=== PATIENT | male | born 1960 | race Caucasian/White ===

== ENCOUNTER → 2017-07-30 | Outpatient (CLI) | payer BC ==
[~2017-07-30] MED LIST: CATHETER FLUSH 10 ML SYR IV PRN; IOHEXOL 350 MG/ML 100 ML (OMNIPAQUE 350) VIAL IV ONE; NS 100 ML (IVPB) BAG IV ONE
--- NOTE | 2017-07-30 13:28 | Diagnostic Imaging Report ---
INDICATION: COPD and hypoxia, family history of lung cancer. TECHNIQUE: The CT chest was obtained with IV contrast bolus. COMPARISON: There is no prior study for comparison. FINDINGS: There are no enlarged mediastinal or hilar nodes. There are no enlarged axillary nodes. There is no pleural or pericardial fluid. There is no overt bony abnormality. Lung parenchymal windows demonstrate no pulmonary infiltrate. There is a small 4 mm nodule in the right upper lobe which is noncalcified. This may represent a granuloma or a small neoplasm. Recommend a followup study in 6-12 months depending on the patient's risk level. There is some mild right apical scarring as well. IMPRESSION: No evidence of adenopathy or pleural fluid. A small 4 mm nodule in the right apex is present which may represent a granuloma or small neoplasm. Suggest a followup study in 6-12 months depending on the patient's risk level. Dictated by: Dictated on workstation # [id number]
== END ==
LOC: RAD 11:14
PROVIDERS: ATTEND Family Medicine
DX: R91.1 Solitary pulmonary nodule (principal); F17.210 Nicotine dependence, cigarettes, uncomplicated; R09.02 Hypoxemia; Z80.1 Family history of malignant neoplasm of trachea, bronchus and lung
CPT/HCPCS: 71260

== ENCOUNTER → 2017-08-27 | Outpatient (CLI) | payer BC ==
[~2017-08-27] MED LIST changes: -CATHETER FLUSH 10 ML SYR IV PRN; -IOHEXOL 350 MG/ML 100 ML (OMNIPAQUE 350) VIAL IV ONE; -NS 100 ML (IVPB) BAG IV ONE; +RT-ALBUTEROL SULF 2.5 MG/3 ML PRE-MIX VIAL IH ONE
== END ==
LOC: RT 12:39
PROVIDERS: ATTEND Nurse Practitioner Family
DX: R06.00 Dyspnea, unspecified (principal); F17.200 Nicotine dependence, unspecified, uncomplicated; J44.9 Chronic obstructive pulmonary disease, unspecified; R53.83 Other fatigue
CPT/HCPCS: 94060; 94640; 94726; 94729

== ENCOUNTER 2017-10-10 20:00 | Outpatient (CLI) | payer BC | END 2017-10-11 04:54 | disposition home or self-care (01) | LOC: SLEEP 20:00 | PROVIDERS: ATTEND Nurse Practitioner Family | DX: G47.61 Periodic limb movement disorder (principal); G47.36 Sleep related hypoventilation in conditions classified elsewhere; R06.83 Snoring | CPT/HCPCS: 95810 ==

== ENCOUNTER 2018-05-19 22:33 | Inpatient (IN) | payer BC ==
[~2018-05-19] VITALS: Ht 184.9 cm; Wt 74.4 kg
[2018-05-19] MEDS ORDERED: LACTATED RINGERS 1,000 ML IV ONE ×2 (22:36→23:04)
--- OUTSIDE RECORDS SUMMARY | 2018-05-19 22:37 | XMS REPORT | Continuity of Care Document ---
Author Author On License Of [facility] [place] Address Unknown Phone Unavailable Allergies Active Description Code Type Severity Reaction Onset Reported/Identified Relationship to Patient Clinical Status Yes No known drug allergies ND N/ A N/A Yes NO KNOWN DRUG ALLERGIES UNKNOWN NO KNOWN DRUG ALLERG Yes No Allergy Information Available [id number] Drug Allergy Unknown N/A 2016 Medications There is no data. Problems Date Dx Coded Attending Type Code Diagnosis Diagnosed By 10/26/2013 DANGELO BRUCE MD V70.5 EXAM - PRE-EMPLOYMENT 10/26/2013 DANGELO BRUCE MD V70.5 EXAM - PRE-EMPLOYMENT 02/23/2014 DANGELO BRUCE MD V70.0 EXAM - ROUTINE H&P 08/21/2017 CAROLYNN WILEY MD Ot F17.210 NICOTINE DEPENDENCE, CIGARETTES, UNCOMPL 08/21/2017 CAROLYNN WILEY MD Ot R09.02 HYPOXEMIA 08/21/2017 CAROLYNN WILEY MD Ot R91.1 SOLITARY PULMONARY NODULE 08/21/2017 CAROLYNN WILEY MD Ot Z80.1 FAMILY HISTORY OF MALIG NEOPLASM OF TRAC 09/10/2017 ADOLFO MARTIN APRN Ot F17.200 NICOTINE DEPENDENCE, UNSPECIFIED, UNCOMP 09/10/2017 ADOLFO MARTIN APRN Ot J44.9 CHRONIC OBSTRUCTIVE PULMONARY DISEASE, U 09/10/2017 ADOLFO MARTIN APRN Ot R06.00 DYSPNEA, UNSPECIFIED 09/10/2017 ADOLFO MARTIN APRN Ot R53.83 OTHER FATIGUE 10/08/2017 CAROLYNN WILEY 272.4 OTHER AND UNSPECIFIED HYPERLIPIDEMIA 10/08/2017 CAROLYNN WILEY E78.5 HYPERLIPIDEMIA, UNSPECIFIED 10/08/2017 CAROLYNN WILEY V70.0 ROUTINE GENERAL MEDICAL EXAMINATION AT A HEALTH CARE FACILITY 10/08/2017 CAROLYNN WILEY Z00.00 ENCOUNTER FOR GENERAL ADULT MEDICAL EXAMINATION WITHOUT ABNORMAL FINDINGS 10/08/2017 CAROLYNN WILEY 272.4 OTHER AND UNSPECIFIED HYPERLIPIDEMIA 10/08/2017 CAROLYNN WILEY 496 CHRONIC AIRWAY OBSTRUCTION, NOT ELSEWHERE CLASSIFIED 10/08/2017 CAROLYNN WILEY E78.5 HYPERLIPIDEMIA, UNSPECIFIED 10/08/2017 CAROLYNN WILEY J44.9 CHRONIC OBSTRUCTIVE PULMONARY DISEASE, UNSPECIFIED 10/08/2017 CAROLYNN WILEY V70.0 ROUTINE GENERAL MEDICAL EXAMINATION AT A HEALTH CARE FACILITY 10/08/2017 CAROLYNN WILEY Z00.00 ENCOUNTER FOR GENERAL ADULT MEDICAL EXAMINATION WITHOUT ABNORMAL FINDINGS 10/08/2017 CAROLYNN WILEY 272.4 OTHER AND UNSPECIFIED HYPERLIPIDEMIA 10/08/2017 CAROLYNN WILEY 496 CHRONIC AIRWAY OBSTRUCTION, NOT ELSEWHERE CLASSIFIED 10/08/2017 CAROLYNN WILEY E78.5 HYPERLIPIDEMIA, UNSPECIFIED 10/08/2017 CAROLYNN WILEY James J44.9 CHRONIC OBSTRUCTIVE PULMONARY DISEASE, UNSPECIFIED 10/08/2017 CAROLYNN WILEY V70.0 ROUTINE GENERAL MEDICAL EXAMINATION AT A HEALTH CARE FACILITY 10/08/2017 CAROLYNN WILEY Z00.00 ENCOUNTER FOR GENERAL ADULT MEDICAL EXAMINATION WITHOUT ABNORMAL FINDINGS 10/11/2017 ADOLFO MARTIN APRN Ot G47.36 SLEEP RELATED HYPOVENTILATION IN CONDITI 10/11/2017 ADOLFO MARTIN APRN Ot G47.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 10/11/2017 ADOLFO MARTIN APRN Ot R06.83 SNORING 11/04/2017 Grabiel Woodson W 491.20 OBSTRUCTIVE CHRONIC BRONCHITIS, WITHOUT EXACERBATION 11/04/2017 BrownGrabiel W J44.9 CHRONIC OBSTRUCTIVE PULMONARY DISEASE, UNSPECIFIED 11/27/2017 Brown, Grabiel A 491.20 OBSTRUCTIVE CHRONIC BRONCHITIS, WITHOUT EXACERBATION 11/27/2017 Grabiel Woodson A J44.9 CHRONIC OBSTRUCTIVE PULMONARY DISEASE, UNSPECIFIED 03/31/2018 INEZ ARAIZA, CAROLYNN Maria Ot F17.210 NICOTINE DEPENDENCE, CIGARETTES, UNCOMPL 03/31/2018 INEZ ARAIZA, CAROLYNN Maria Ot R09.02 HYPOXEMIA 03/31/2018 INEZ ARAIZA, CAROLYNN Maria Ot R91.1 SOLITARY PULMONARY NODULE 03/31/2018 INEZ ARAIZA, CAROLYNN Maria Ot Z80.1 FAMILY HISTORY OF MALIG NEOPLASM OF TRAC 03/31/2018 ADOLFO MARTIN APRN Ot F17.200 NICOTINE DEPENDENCE, UNSPECIFIED, UNCOMP 03/31/2018 ADOLFO MARTIN APRN Ot J44.9 CHRONIC OBSTRUCTIVE PULMONARY DISEASE, U 03/31/2018 ADOLFO MARTIN APRN Ot R06.00 DYSPNEA, UNSPECIFIED 03/31/2018 ADOLFO MARTIN APRN Ot R53.83 OTHER FATIGUE Procedures Code Description Performed By Performed On URINEDRUG URINE DRUG SCREEN (CON'F ) 10/26/2013 54097 PULMONARY FUNCTION TEST (IN- HOUSE) 03/08/2014 Results Test Result Range Comprehensive Metabolic Panel - 10/08/17 14:40 Albumin 4.5 g/dL 3.6-5.1 ALP 127 U/L 35-130 ALT 27 U/L 6-45 Anion Gap 14 6-14 AST 20 U/L 2-40 BUN 16 mg/dL 5-25 Calcium 9.8 mg/dL 8.3-10.4 Chloride 106 mmol/L 95-114 CO2 23 mEq/L 22-33 Creat 1.08 mg/dL 0.50-1.50 eGFR 70 mL/min/1.73m2 >59 Globulin 2.7 g/dL 2.3-3.5 Glucose 98 mg/dL 70-110 Osmo 288 280-295 Potassium 4.2 mmol/L 3.5-5.3 Sodium 139 mmol/L 134-148 TBil 0.6 mg/dL 0.2-1.2 TP 7.2 g/dL 6.0-8.3 Encounters ACCT No. Visit Date/Time Discharge Status Pt. Type Provider Facility Loc./Unit Complaint [id number] 02/23/2014 14:52:00 02/23/2014 23:59:59 CLS Outpatient DANGELO BRUCE MD [id number] 10/26/2013 11:17:00 10/26/2013 23:59:59 CLS Outpatient DANGELO BRUCE MD [id number] 03/17/2014 07:47:00 03/17/2014 23:59:59 CLS Outpatient JAYLEEN MANTILLA [facility] CREHAB [id number] 02/22/2014 14:43:00 02/22/2014 14:43:00 DIS Outpatient BRYANT AGUILERA [facility] RAD [id number] 02/22/2014 14:43:05 Document Registration [id number] 03/31/2018 11:27:00 03/31/2018 23:59:59 CLS Preadmit CAROLYNN WILEY MD [facility] RAD PULMONARY NODULE FOLLOW UP [id number] 10/10/2017 20:00:00 10/11/2017 04:54:00 DIS Outpatient ADOLFO MARTIN APRN [facility] SLEEP SLEEP DISORDER, UNSPECIFIED [id number] 08/27/2017 12:39:00 08/27/2017 23:59:59 CLS Outpatient ADOLFO MARTIN 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 [facility] RT SOB [id number] 08/19/2017 12:38:00 08/19/2017 23:59:59 CLS Preadmit ADOLFO MARTIN APRN [facility] RAD LUNG NODULE R91.1 [id number] 07/30/2017 11:14:00 07/30/2017 23:59:59 CLS Outpatient CAROLYNN WILEY MD [facility] RAD COPD [id number] 11/05/2017 10:00:00 11/27/2017 11:23:00 DIS Outpatient Grabiel Woodson [id number] 11/04/2017 10:00:00 11/04/2017 23:59:00 DIS Outpatient Grabiel Woodson [id number] 10/08/2017 17:23:00 10/08/2017 23:59:00 DIS Outpatient CAROLYNN WILEY [id number] 07/17/2017 12:08:00 07/17/2017 23:59:00 DIS Outpatient CAROLYNN WILEY
[2018-05-19 22:45] LABS: BASOPHILS # (AUTO) 0.1 10^3/uL (0.0-0.1); BASOPHILS % (AUTO) 1 % (0-10); EOSINOPHILS # (AUTO) 0.2 10^3/uL (0.0-0.3); EOSINOPHILS % (AUTO) 2 % (0-10); HEMATOCRIT 45 % (40-54); HEMOGLOBIN 15.8 G/DL (13.3-17.7); LYMPHOCYTES # (AUTO) 2.5 X 10^3 (1.0-4.0); LYMPHOCYTES % (AUTO) 30 % (12-44); MEAN CORPUSCULAR HEMOGLOBIN 31 PG (25-34); MEAN CORPUSCULAR HGB CONC 36 G/DL (32-36); MEAN CORPUSCULAR VOLUME 86 FL (80-99); MEAN PLATELET VOLUME 12.7 FL (7.4-10.4); MONOCYTES # (AUTO) 0.9 X 10^3 (0.0-1.0); MONOCYTES % (AUTO) 10 % (0-12); NEUTROPHILS # (AUTO) 4.8 X 10^3 (1.8-7.8); NEUTROPHILS % (AUTO) 57 % (42-75); PLATELET COUNT 141 10^3/uL (130-400); RED BLOOD COUNT 5.16 10^6/uL (4.35-5.85); RED CELL DISTRIBUTION WIDTH 13.2 % (10.0-14.5); WHITE BLOOD COUNT 8.4 10^3/uL (4.3-11.0)
[2018-05-19] MEDS ORDERED: ONDANSETRON 4 MG/2 ML (SDV) Z0FRAN IVP ONE (22:45)
--- NOTE | 2018-05-19 22:52 | ED General ---
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 --WAS VERY HOT IN THE BUILDING C/O GENERALIZED WEAKNESS C/O LEFT SIDED HEADACHE STATES "I THINK I HAD A HEAT STROKE-MY WHOLE LEFT SIDE IS NUMB" BUT CAN MOVE ALL EXTREMITIES. STATES IT CAME ON SUDDENLY + NAUSEA, NO VOMITING HAS BEEN DRINKING LIQUIDS, AND LAST VOID WAS 2 HOURS AGO, ATE HAM SANDWICH AT 1900 TONIGHT NO VISION CHANGES NO CHEST PAIN OR SHORTNESS OF BREATH ACCUCHECK BY EMS 129 PCP: DR. WILEY Allergies and Home Medications Allergies Coded Allergies: No Known Drug Allergies (Unverified , 05/19/18) Home Medications Omeprazole Magnesium 20 Mg Tablet.dr, 20 MG PO 1200, (Reported) Ranitidine HCl 150 Mg Tablet, 150 MG PO 1200, (Reported) Patient Home Medication List Home Medication List Reviewed: Yes Review of Systems Constitutional: see HPI, malaise, weakness EENTM: no symptoms reported Respiratory: no symptoms reported Cardiovascular: no symptoms reported Gastrointestinal: see HPI; No abdominal pain, No diarrhea, No loss of appetite ; nausea; No vomiting Genitourinary: no symptoms reported; No decreased output Musculoskeletal: no symptoms reported Skin: no symptoms reported Psychiatric/Neurological: See HPI, Headache, Numbness, Paresthesia, Weakness ( GENERALIZED) Hematologic/Lymphatic: No Symptoms Reported Immunological/Allergic: no symptoms reported Past Smawcbz-Brvhqa-Tjjptr Hx Patient Social History Alcohol Use: Past History (HISTORY OF ABUSE--WILL ONLY STATE HE DRANK "ALOT" AND QUIT "LONG TIME AGO" PER PT ON 05/19/18) Recreational Drug Use: Yes (COCAINE, METH, THC, DENIES IV DRUG USE, PER PT ON 05/19/18) Drug of Choice: COCAINE, METH, THC, DENIES IV USE Smoking Status: Current Everyday Smoker (1 PPD) Type Used: Cigarettes (1 PPD) 2nd Hand Smoke Exposure: Yes Recent Hopitalizations: No Immunizations Up To Date Tetanus Booster (TDap): Unknown Seasonal Allergies Seasonal Allergies: No Past Medical History Surgeries: No Respiratory: Yes COPD Cardiac: No Neurological: No Genitourinary: No Gastrointestinal: Yes Gastroesophageal Reflux Musculoskeletal: No Endocrine: No HEENT: No Cancer: No Psychosocial: No Integumentary: No Blood Disorders: No Physical Exam Vital Signs Vital Signs - First Documented 05/20/18 05/20/18 00:24 01:30 Temp 96.7 Pulse 70 Resp 17 B/P (MAP) 137/88 (115) Pulse Ox 93 O2 Delivery Room Air O2 Flow Rate 2.00 Capillary Refill : General Appearance: No Apparent Distress, WD/WN, Other (VERY LETHARGIC, NOT WANTING TO ANSWER QUESTIONS ON ARRIVAL, BUT AFTER ASKING PT MULTIPLE QUESTIONS, HE FINALLY STARTED TALKING IN A COMPLETELY NORMAL VOICE WITHOUT DIFFICULTY. DRAMATIC. 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 ) Progress/Results/Core Measures Suspected Sepsis SIRS Temperature: Pulse: Respiratory Rate: Blood Pressure / Mean: Results/Orders Lab Results My Orders Medications Given in ED Vital Signs/I&O Capillary Refill : Progress Note : Progress Note 2350--STILL C/O LEFT SIDED HEADACHE, BUT IS BETTER. NAUSEA IS GONE. PT STATES NUMBNESS AND TINGLING IS GONE. PT IS FREELY USING ALL EXTREMITIES EQUALLY WITHOUT DIFFICULTY. NO DETERIORATION IN PT'S CONDITION DURING ER STAY ECG Initial ECG Impression Date: May 19, 2018 Initial ECG Impression Time: 22:48 Initial ECG Rate: 63 Initial ECG Rhythm: Normal Sinus Diagnostic Imaging Comments CT HEAD--2 SMALL AREAS OF HYPODENSITY IN SUBCORTICAL WHITE MATTER OF LEFT FRONTAL LOBE, NON-SPECIFIC--POSSIBLY ACUTE, SUBACUTE OR CHRONIC SMALL LACUNAR INFARCTS.. NO ACUTE BLEEDING OR OTHER INTRACRANIAL PROCESS, DOES NOT RECOMMEND CT HEAD ANGIOGRAM AT THIS TIME, AREAS ARE VERY SMALL AND PERIPHERAL. PER RADIOLOGIST VIA PHONE AT [phone] Reviewed: Reviewed by Me, Discussed w/Radiologist Departure Communication (Admissions) 8402--SPOKE WITH DR. LERMA, ACCEPTS PT FOR ADMIT Impression Primary Impression: TRANSIENT LEFT SIDED PARESTHESIAS Additional Impression: Heat exhaustion Disposition: ADMITTED INPATIENT Condition: Improved Admissions Decision to Admit Reason: Admit from ER (General) Decision to Admit/Date: May 20, 2018 Time/Decision to Admit Time: 00:01 Departure-Patient Inst. Referrals: CAROLYNN WILEY MD (PCP/Family) Primary Care Physician ROCKY PINK DO May 19, 2018 22:52
[2018-05-19 23:02] LABS: INR 1.2 (0.8-1.4); PROTHROMBIN TIME PATIENT 15.2 SEC (12.2-14.7)
[2018-05-19 23:03] LABS: ALANINE AMINOTRANSFERASE 26 U/L (0-55); ALBUMIN 4.3 GM/DL (3.2-4.5); ALKALINE PHOSPHATASE 101 U/L (40-136); BILIRUBIN,TOTAL 0.5 MG/DL (0.1-1.0); BUN/CREATININE RATIO 12; CALCIUM 9.5 MG/DL (8.5-10.1); CARBON DIOXIDE 23 MMOL/L (21-32); CHLORIDE 110 MMOL/L (98-107); CREATININE SERUM 1.06 MG/DL (0.60-1.30); GFR ESTIMATED > 60; GLUCOSE 147 MG/DL (70-105); MAGNESIUM 2.4 MG/DL (1.8-2.4); POTASSIUM 3.6 MMOL/L (3.6-5.0); SODIUM 142 MMOL/L (135-145)
[2018-05-19 23:22] LABS: TSH (THYROID ANALYZER) 1.55 UIU/ML (0.35-4.94)
[2018-05-20] VITALS (22 sets, daily range): BP systolic 109–168; BP diastolic 58–93
[2018-05-20] MEDS ORDERED: ONDANSETRON 4 MG/2 ML (SDV) Z0FRAN IVP ONE
[2018-05-20] MEDS ORDERED: KETOROLAC 30 MG/ML VIAL IVP ONE
[2018-05-20 00:14] LABS: BILIRUBIN,URINE NEGATIVE (NEGATIVE); CLARITY,URINE CLEAR; COLOR,URINE YELLOW; GLUCOSE, URINE (UA) NEGATIVE (NEGATIVE); KETONES,URINE NEGATIVE (NEGATIVE); LEUKOCYTE ESTERASE ,URINE NEGATIVE (NEGATIVE); NITRITE,URINE NEGATIVE (NEGATIVE); PH,URINE 7 (5-9); PROTEIN,URINE NEGATIVE (NEGATIVE); UROBILINOGEN,URINE NORMAL (NORMAL)
[2018-05-20 00:20] LABS: BACTERIA,URINE NEGATIVE /HPF; SQUAMOUS EPITHELIAL CELL,UR 0-2 /HPF
[2018-05-20 00:27] LABS: AMPHETAMINE SCREEN, URINE NEGATIVE (NEGATIVE); BARBITURATE SCREEN URINE NEGATIVE (NEGATIVE); BENZODIAZEPINES SCREEN URINE NEGATIVE (NEGATIVE); CANNABINOID SCREEN, URINE NEGATIVE (NEGATIVE); COCAINE SCREEN URINE NEGATIVE (NEGATIVE); METHADONE STAT NEGATIVE (NEGATIVE); METHAMPHETAMINE SCREEN URINE S NEGATIVE (NEGATIVE); OPIATE SCREEN URINE NEGATIVE (NEGATIVE); OXYCODONE STAT NEGATIVE (NEGATIVE); PROPOXYPHENE STAT NEGATIVE (NEGATIVE); TRICYCLIC ANTIDEPRESSANTS SCRE NEGATIVE (NEGATIVE)
--- OUTSIDE RECORDS SUMMARY | 2018-05-20 00:32 | XMS REPORT | Continuity of Care Document ---
Author Author [facility] Address Unknown Phone Unavailable Allergies Active Description Code Type Severity Reaction Onset Reported/Identified Relationship to Patient Clinical Status Yes No known drug allergies ND N/ A N/A Yes NO KNOWN DRUG ALLERGIES UNKNOWN NO KNOWN DRUG ALLERG Yes No Allergy Information Available [id number] Drug Allergy Unknown N/A 2016 Medications There [...] URINEDRUG URINE DRUG SCREEN (CON'F ) 10/26/2013 75806 PULMONARY FUNCTION TEST (IN- HOUSE) 03/08/2014 Results [...] Status Pt. Type Provider Facility Loc./Unit Complaint [id number] 02/23/2014 14:52:00 02/23/2014 23:59:59 CLS Outpatient DANGELO BRUCE MD [id number] 10/26/2013 11:17:00 10/26/2013 23:59:59 CLS Outpatient DANGELO BRUCE MD [id number] 03/17/2014 07:47:00 03/17/2014 23:59:59 CLS Outpatient JAYLEEN MANTILLA [facility] CREHAB [id number] 02/22/2014 14:43:00 02/22/2014 14:43:00 DIS Outpatient BRYANT AGUILERA 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 [id number] 08/19/2017 12:38:00 08/19/2017 23:59:59 CLS Preadmit ADOLFO MARTIN APRN [facility] RAD LUNG NODULE R91.1 [id number] 07/30/2017 11:14:00 07/30/2017 23:59:59 CLS Outpatient CAROLYNN WILEY MD [facility] RAD COPD [id number] 11/05/2017 10:00:00 11/27/2017 11:23:00 DIS Outpatient Grabiel Woodson [id number] 11/04/2017 10:00:00 11/04/2017 23:59:00 DIS Outpatient Grabiel Woodson [id number] 10/08/2017 17:23:00 10/08/2017 23:59:00 DIS Outpatient CAROLYNN WILEY [id number] 07/17/2017 12:08:00 07/17/2017 23:59:00 DIS Outpatient CAROLYNN WILEY
[2018-05-20] MEDS ORDERED: D5 1/2 NS W/KCL 20 MEQ/L 1,000 ML IV ONE (01:08)
[2018-05-20 01:43] LABS: BASOPHILS % (AUTO) 0 % (0-10); EOSINOPHILS % (AUTO) 0 % (0-10); HEMATOCRIT 41 % (40-54); HEMOGLOBIN 14.8 G/DL (13.3-17.7); LYMPHOCYTES # (AUTO) 0.8 X 10^3 (1.0-4.0); LYMPHOCYTES % (AUTO) 7 % (12-44); MEAN CORPUSCULAR HEMOGLOBIN 31 PG (25-34); MEAN CORPUSCULAR HGB CONC 36 G/DL (32-36); MEAN CORPUSCULAR VOLUME 87 FL (80-99); MEAN PLATELET VOLUME 13.1 FL (7.4-10.4); MONOCYTES # (AUTO) 0.5 X 10^3 (0.0-1.0); MONOCYTES % (AUTO) 5 % (0-12); NEUTROPHILS # (AUTO) 9.9 X 10^3 (1.8-7.8); NEUTROPHILS % (AUTO) 88 % (42-75); PLATELET COUNT 104 10^3/uL (130-400); RED BLOOD COUNT 4.72 10^6/uL (4.35-5.85); RED CELL DISTRIBUTION WIDTH 12.8 % (10.0-14.5); WHITE BLOOD COUNT 11.3 10^3/uL (4.3-11.0)
[2018-05-20 02:04] LABS: ALANINE AMINOTRANSFERASE 24 U/L (0-55); ALKALINE PHOSPHATASE 89 U/L (40-136); BILIRUBIN,TOTAL 0.4 MG/DL (0.1-1.0); BUN/CREATININE RATIO 13; CARBON DIOXIDE 20 MMOL/L (21-32); CHLORIDE 110 MMOL/L (98-107); CREATININE SERUM 0.92 MG/DL (0.60-1.30); GFR ESTIMATED > 60; GLUCOSE 144 MG/DL (70-105); POTASSIUM 3.8 MMOL/L (3.6-5.0); SODIUM 141 MMOL/L (135-145); TOTAL PROTEIN 6.4 GM/DL (6.4-8.2)
[2018-05-20] MEDS ORDERED: NS 250 ML (IVPB) BAG IV ONE (03:00)
[2018-05-20] MEDS ORDERED: IOHEXOL 350 MG/ML 100 ML (OMNIPAQUE 350) VIAL IV ONE (03:00)
[2018-05-20] MEDS ORDERED: KETOROLAC 30 MG/ML VIAL IVP PRN (05:00)
[2018-05-20] MEDS: D5 1/2 NS W/KCL 20 MEQ/L 1,000 ML IV SCH ×4 (05:30→21:24)
--- NOTE | 2018-05-20 05:31 | Diagnostic Imaging Report ---
INDICATION: Weakness. Syncope. COMPARISON: None FINDINGS: Single frontal view of the chest demonstrates normal heart size and pulmonary vascularity. The lungs are well aerated and clear. No large pleural effusion or pneumothorax is seen. The visualized osseous structures show no acute abnormalities. IMPRESSION: 1. No acute cardiopulmonary process. Dictated by: Dictated on workstation # [id number]
--- NOTE | 2018-05-20 06:17 | Pulmonary Consultation ---
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 He was not uncounscious however he was very weak. Pt was also complaining of left sided WILSON. Pt states it was very hot in building. NIH was 18 and now NIH is 2. Pt still has generalized weakness. Head CTs are negative. UDS is negative. Allergies and Home Medications Allergies Coded Allergies: No Known Drug Allergies (Unverified , 05/19/18) Home Medications No Active Prescriptions or Reported Meds Past Usmrlnl-Rbarti-Jbqogy Hx Patient Social History Alcohol Use: Past History Recreational Drug Use: Yes (COCAINE, METH, THC, DENIES IV DRUG USE, PER PT ON 05/19/18) Drug of Choice: COCAINE, METH, THC, DENIES IV USE Smoking Status: Current Everyday Smoker Type Used: Cigarettes 2nd Hand Smoke Exposure: Yes Recent Foreign Travel: No Contact w/Someone Who Travel: No Recent Infectious Disease Expo: No Recent Hopitalizations: No Immunizations Up To Date Tetanus Booster (TDap): Unknown Seasonal Allergies Seasonal Allergies: No Past Medical History Surgeries: No Respiratory: Yes COPD Cardiac: No Neurological: No Genitourinary: No Gastrointestinal: Yes Gastroesophageal Reflux Musculoskeletal: No Endocrine: No HEENT: No Cancer: No Psychosocial: No Integumentary: No Blood Disorders: No Review of Systems Time Seen by Provider: 06:31 Exam Exam Vital Signs Date Time Temp Pulse Resp B/P (MAP) Pulse Ox O2 Delivery O2 Flow Rate FiO2 05/20/18 04:00 58 15 154/87 (109) 99 Room Air 05/20/18 04:00 99 Nasal Cannula 2.00 05/20/18 03:00 81 15 147/93 (111) 99 Room Air 05/20/18 02:00 80 15 168/93 (118) 98 Room Air 05/20/18 01:30 99 Nasal Cannula 2.00 05/20/18 00:55 96.8 66 24 163/93 (116) 96 Room Air 05/20/18 00:24 96.7 70 17 137/88 (115) 93 Room Air 05/19/18 23:55 96.1 05/19/18 22:35 96.1 66 16 161/92 (115) 95 Room Air I & O 05/20/18 07:00 Intake Total 2150 ml Output Total 400 ml Balance 1750 ml General Appearance: No Apparent Distress, WD/WN, Other (VERY LETHARGIC) HEENT: PERRL/EOMI Neck: Full Range of Motion, Normal Inspection, Non Tender, Supple Respiratory: Normal Breath Sounds, No Accessory Muscle Use, No Respiratory Distress Cardiovascular: Regular Rate, Rhythm, No Edema, No JVD, No Murmur, Normal Peripheral Pulses Capillary Refill: Less Than 3 Seconds Extremity: Normal Capillary Refill, Normal Inspection, Normal Range of Motion, Non Tender, No Calf Tenderness Neurologic/Psychiatric: Alert, Oriented x3, No Motor/Sensory Deficits, 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 ) Results Lab Laboratory Tests 05/19/18 22:35 05/20/18 01:30 Assessment/Plan Assessment/Plan -Acute weakness -Acute TIA - symptoms now resolved -swallow eval prior PO intake -start Plavix -Check echo, and bilateral carotid dopplers -CT and CTA of head reports are still pending Nausea -Check amylase, lipase Dehydration -IVF Hx of small lung nodule - last CT of chest in 2017 here at [facility] -CT of chest today r/o mass Decreased appetite and wt loss over the last month Hx of tobacco use, ETOH -education Nocturnal hypoxia -managed by PCP -hx of CVA 255 ALEX WEBSTER DO May 20, 2018 06:17
[2018-05-20] MEDS: ONDANSETRON 4 MG/2 ML (SDV) Z0FRAN IV PRN ×2 (06:29→21:24)
--- NOTE | 2018-05-20 06:40 | Diagnostic Imaging Report ---
INDICATION: Syncope. Headache. TECHNIQUE: Routine non contrast-enhanced axial images were obtained from the skull base to the vertex. COMPARISON: None. FINDINGS: The ventricles and cortical sulci are age-appropriate. There are 2 small areas of abnormal, low attenuation in the periventricular white matter of the left frontal lobe. This is suggestive of small vessel ischemic changes; age-indeterminate. There is no prior study available for comparison. There is no midline shift or mass-effect. No acute intra-axial hemorrhage is seen. There are no abnormal areas of increased or decreased density to suggest acute hemorrhage or edema. No extra-axial masses or collections are present. The bony calvarium is intact. The visualized paranasal sinuses are unremarkable. The mastoid air cells are clear. IMPRESSION: 1. No acute intracranial abnormality. No CT evidence of mass, acute infarct or intracranial hemorrhage. 2. Probable chronic small vessel ischemic changes within the deep white matter. Dictated by: Dictated on workstation # [id number]
[2018-05-20] MEDS ORDERED: CATHETER FLUSH 10 ML SYR IV PRN (06:45)
[2018-05-20 07:04] LABS: BASOPHILS % (AUTO) 0 % (0-10); EOSINOPHILS % (AUTO) 0 % (0-10); HEMATOCRIT 40 % (40-54); HEMOGLOBIN 14.6 G/DL (13.3-17.7); LYMPHOCYTES # (AUTO) 0.7 X 10^3 (1.0-4.0); LYMPHOCYTES % (AUTO) 11 % (12-44); MEAN CORPUSCULAR HEMOGLOBIN 32 PG (25-34); MEAN CORPUSCULAR HGB CONC 36 G/DL (32-36); MEAN CORPUSCULAR VOLUME 87 FL (80-99); MEAN PLATELET VOLUME 12.7 FL (7.4-10.4); MONOCYTES # (AUTO) 0.3 X 10^3 (0.0-1.0); MONOCYTES % (AUTO) 5 % (0-12); NEUTROPHILS # (AUTO) 4.8 X 10^3 (1.8-7.8); NEUTROPHILS % (AUTO) 84 % (42-75); PLATELET COUNT 98 10^3/uL (130-400); RED BLOOD COUNT 4.63 10^6/uL (4.35-5.85); RED CELL DISTRIBUTION WIDTH 12.8 % (10.0-14.5); WHITE BLOOD COUNT 5.8 10^3/uL (4.3-11.0)
[2018-05-20 07:08] LABS: AMYLASE 52 U/L (25-125); LIPASE 31 U/L (8-78)
[2018-05-20 07:21] LABS: BUN/CREATININE RATIO 12; CALCIUM 8.8 MG/DL (8.5-10.1); CARBON DIOXIDE 21 MMOL/L (21-32); CHLORIDE 108 MMOL/L (98-107); CREATININE SERUM 0.84 MG/DL (0.60-1.30); GFR ESTIMATED > 60; GLUCOSE 142 MG/DL (70-105); MAGNESIUM 1.9 MG/DL (1.8-2.4); PHOSPHORUS 3.2 MG/DL (2.3-4.7); POTASSIUM 3.7 MMOL/L (3.6-5.0); SODIUM 139 MMOL/L (135-145)
--- NOTE | 2018-05-20 07:59 | Diagnostic Imaging Report ---
Indication: Heat exposure. Altered mental status. Confusion. Syncope. Findings: There is good opacification of the intracranial arteries. No evidence of spasm or obstructive disease. The anterior, middle and posterior cerebral arteries appear normal as do the cerebellar arteries. There are no enhancing masses. Ventricles and cortical gyral pattern are normal. Basal cisterns are clear. IMPRESSION: Negative CT angiography of the head. Dictated by: Dictated on workstation # [id number]
[2018-05-20] MEDS ORDERED: CALCIUM CARBONATE 500 MG (TUMS) TAB.CHEW PO NR (09:30)
[2018-05-20] MEDS ORDERED: FAMOTIDINE 20 MG (PEPCID) TABLET PO NR (09:30)
[2018-05-20] MEDS ORDERED: FAMOTIDINE 20 MG (PEPCID) TABLET PO PRN (09:30)
[2018-05-20] MEDS ORDERED: RANI-515 PO (09:31)
[2018-05-20] MEDS ORDERED: OMEP20TA33 PO (09:31)
[2018-05-20] MEDS: CLOPIDOGREL 75 MG (PLAVIX) TABLET PO SCH (10:51)
[2018-05-20] MEDS ORDERED: RT-ALBUTEROL/IPRATROPIUM 3 ML (DUONEB) VIAL INH PRN (11:15)
--- NOTE | 2018-05-20 11:43 | History & Physical-Hospitalist ---
History of Present Illness HPI/Chief Complaint CC: Severe dizziness with left sided weakness HPI: This is a 57-year-old white male of Dr. Still from [facility] who presented to the ER following heat exposure with complaints of left-sided weakness with numbness of his left face. CT brain and angiogram of the neck were both negative but showed possible old infarcts. Considering the continued issues he is currently having will obtain MRI of the brain with IV contrast to fully evaluate for possible stroke. I have ordered a lipid panel per stroke protocol and initiated physical therapy and occupational therapy. He denies any current pain and overall has no other significant issues except for the disequilibrium and the severe weakness that he has that he is just never had before. He does smoke and I counseled him for smoking cessation. I did initiate nebulizers per protocol considering the rales and rhonchi on lung exam today. Source: patient Date Seen 05/20/18 Time Seen by Provider: 10:30 Attending Physician Elliot Valladares MD PCP Estefani Still MD Referring Physician Date of Admission May 20, 2018 at 00:01 Home Medications & Allergies Home Medications Reviewed patient Home Medication Reconciliation performed by pharmacy medication reconciliations television production technician and/or nursing. Patients Allergies have been reviewed. 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) Alcohol Use: Past History Recreational Drug Use: Yes (COCAINE, METH, THC, DENIES IV DRUG USE, PER PT ON 05/19/18) Drug of Choice: COCAINE, METH, THC, DENIES IV USE Smoking Status: Current Everyday Smoker Type Used: Cigarettes 2nd Hand Smoke Exposure: Yes Physical Abuse Screen: No Sexual Abuse: No Recent Foreign Travel: No Contact w/other who traveled: No Recent Hopitalizations: No Recent Infectious Disease Expo: No Immunizations Up To Date Tetanus Booster (TDap): Unknown Seasonal Allergies Seasonal Allergies: No Past Medical History Respiratory: COPD Gastrointestinal: Gastroesophageal Reflux History of Blood Disorders: No Family History Hypertension Review of Systems Constitutional: see HPI, dizziness, weakness EENTM: no symptoms reported Respiratory: no symptoms reported Cardiovascular: no symptoms reported Gastrointestinal: no symptoms reported Genitourinary: no symptoms reported Musculoskeletal: muscle pain, muscle stiffness, muscle cramps Skin: no symptoms reported Psychiatric/Neurological: No Symptoms Reported Physical Exam Physical Exam Vital Signs Vital Signs - First Documented 05/19/18 05/20/18 22:35 01:30 Temp 96.1 Pulse 66 Resp 16 B/P (MAP) 161/92 (115) Pulse Ox 95 O2 Delivery Room Air O2 Flow Rate 2.00 Capillary Refill : Less Than 3 Seconds General Appearance: No Apparent Distress, WD/WN, Chronically ill Eyes: Bilateral Eye Normal Inspection, Bilateral Eye PERRL HEENT: PERRL/EOMI, Normal ENT Inspection, Pharynx Normal Neck: Full Range of Motion, Normal Inspection, Non Tender, Supple, Carotid Bruit Respiratory: Chest Non Tender, No Accessory Muscle Use, No Respiratory Distress , Crackles, Decreased Breath Sounds, Wheezing Cardiovascular: Regular Rate, Rhythm, No Edema, No Gallop, No JVD, No Murmur, Normal Peripheral Pulses Gastrointestinal: Normal Bowel Sounds, No Organomegaly, No Pulsatile Mass, Non Tender, Soft Back: Normal Inspection, No CVA Tenderness, No Vertebral Tenderness Extremity: Normal Capillary Refill, Normal Inspection, Normal Range of Motion, Non Tender, No Calf Tenderness, No Pedal Edema Neurologic/Psychiatric: Alert, Oriented x3, No Motor/Sensory Deficits, Normal Mood/Affect Skin: Normal Color, Warm/Dry Lymphatic: No Adenopathy Results Results/Procedures Labs Laboratory Tests 05/19/18 22:35 05/20/18 01:30 05/20/18 06:44 Patient resulted labs reviewed. Assessment/Plan Admission Diagnosis Assessment: Left-sided weakness with heat exhaustion Plan: Obtain MRI brain PT and OT Nebulizer treatments Reconcile all home meds Monitor closely Admission Status: Observation Diagnosis/Problems Diagnosis/Problems (1) Heat exhaustion Status: Acute Qualifiers: Encounter type: initial encounter Qualified Codes: T67.5XXA - Heat exhaustion, unspecified, initial encounter (2) Paresthesia and pain of left extremity Status: Acute (3) Smoker Status: Chronic (4) Rales Status: Acute (5) COPD (chronic obstructive pulmonary disease) Status: Chronic Qualifiers: COPD type: unspecified COPD Qualified Codes: J44.9 - Chronic obstructive pulmonary disease, unspecified Clinical Quality Measures DVT/VTE Risk/Contraindication: Risk Factor Score Per Nursin RFS Level Per Nursing on Admit: 3=High ULLOA,EVERETTE DO May 20, 2018 11:43
[2018-05-20 12:08] LABS: CHOLESTEROL 153 MG/DL (< 200); HDL CHOLESTEROL 29 MG/DL (40-60); TRIGLYCERIDES 79 MG/DL (<150); VLDL CHOLESTEROL 16 MG/DL (5-40)
--- NOTE | 2018-05-20 13:30 | Diagnostic Imaging Report ---
PROCEDURE: CT chest without contrast. TECHNIQUE: Multiple contiguous axial images were obtained through the chest without the use of intravenous contrast. INDICATION: Lung nodule versus mass, followup. COMPARISON: Comparison is made with prior CT chest from 07/30/2017. FINDINGS: No axillary lymphadenopathy is detected. No definite mediastinal or hilar lymphadenopathy is detected. No pericardial or pleural fluid is identified. Biapical pleural-parenchymal scarring is seen. Small nodule in the right lung apex is 4-5 mm in size, similar to examination from 07/30/2017. No new parenchymal nodule is identified. Upper abdomen demonstrates small stones within the gallbladder. IMPRESSION: 1. Stable right upper lobe nodule when compared with exam from 07/30/2017. Additional followup in one year is recommended to confirm stability. Dictated by: Dictated on workstation # [id number]
[2018-05-20] MEDS ORDERED: GADOBUTROL 7.5 MMOL/7.5 ML (GADAVIST) VIAL IV ONE (13:45)
--- NOTE | 2018-05-20 15:03 | Diagnostic Imaging Report ---
PROCEDURE: MR imaging of the brain with and without contrast. TECHNIQUE: Multiplanar, multisequence MR imaging of the brain was performed with and without contrast. INDICATION: Found unresponsive one day ago, complaining of left-sided weakness and slurred speech. Correlation is made with CT study of the brain earlier same day. Diffusion weighted sequence does show diffusion restriction involving portion of the left cerebellar hemisphere. This appears to be along the inferior and slightly medial aspect of the cerebellar hemisphere and portion of the vermis. This is consistent with an acute nonhemorrhagic infarct. Right cerebellar hemisphere is unremarkable. No supratentorial diffusion restriction is seen. No definite flow void in the left distal vertebral artery is seen and distal vertebral may be occluded. There is moderate periventricular and subcortical white matter signal abnormalities noted consistent with chronic microvascular ischemia. No acute intracranial hemorrhage is seen. No abnormal enhancement is seen following contrast demonstration. Corpus callosum is unremarkable. The sella and parasellar structures are unremarkable. IMPRESSION: 1. Acute nonhemorrhagic infarct left cerebellar hemisphere. The flow-void in the distal left vertebral artery is not well seen and left vertebral could be occluded. 2. Changes of chronic microvascular ischemia. Dictated by: Dictated on workstation # [id number]
--- NOTE | 2018-05-20 15:39 | Physical Therapy Evaluation ---
PT Evaluation-General Medical Diagnosis Admission Date May 20, 2018 at 00:01 Medical Diagnosis: weakness Onset Date: May 20, 2018 Therapy Diagnosis Therapy Diagnosis: impaired mobility, strength, balance, endurance, coordination Height/Weight Height (Feet): 5 Height (Inches): 12.80 Weight (Pounds): 170 Weight (Ounces): 8.0 Precautions Precautions/Isolations: Aspiration, Fall Prevention, Standard Precautions Referral Physician: Haley Rae DO Reason for Referral: Evaluation/Treatment Medical History Pertinent Medical History: COPD, GERD, Smoking Additional Medical History drug use Reviewed History: Yes Social History Home: Single Level Current Living Status: Spouse Entry Into Home: Stairs Without Railing PT Steps Into Home: 3 Prior/Core FIM Prior Level of Function Functional [place] Measure 0=Not Assessed/NA 4=Minimal Assistance 1=Total Assistance 5=Supervision or Setup 2=Maximal Assistance 6=Modified [place] 3=Moderate Assistance 7=Complete [place] Bed Mobility: 7 Transfers (B,C,W/C) (FIM): 7 Gait: 7 PT Evaluation-Current Subjective Patient in bed pre tx, agrees to PT, no pain but some minor back pain 12/10. Patient states he has occasional headaches. Patient states he gets dizzy/light headed with movement. Pt/Family Goals to be independent at home. Objective Patient Orientation: Person, Place, Situation Attachments: Oxygen, IV ROM/Strength ROM Lower Extremities WNL Strength Lower Extremities 4+/5 gross bilateral lower extremities Neuromuscular (Tone, Coordination, Reflexes) Patient has impaired coordination of all 4 extremities but especially lower extremities as observed during ambulation. Patient also seems to have decreased peripheral vision on the left side and slow tracking overall. No complaints of changes in hearing. Sensory Vision: Hearing: Functional Sensation Right Lower Extremit: Impaired Sensation Left Lower Extremity: Impaired Sensation Lower Extremities Patient has intact light touch sensation in both lower extremities but states that he does have impaired sensation. He also states that he has numbness on the left side of his face. Transfers Functional [place] Measure 0=Not Assessed/NA 4=Minimal Assistance 1=Total Assistance 5=Supervision or Setup 2=Maximal Assistance 6=Modified [place] 3=Moderate Assistance 7=Complete [place] Transfers (B, C, W/C) (FIM): 4 Scootin Rollin Supine to/from Sit: 5 Sit to/from Stand: 4 Patient performs bed mobility and supine to sit with SBA. He is unsteady after sitting and requires a few minutes for light headedness to go away. Min assist to stand due to balance impairments. Gait Mode of Locomotion: Walk Anticipated Mode of Locomotion: Walk Gait (FIM): 1 Distance: 8' Gait Level of Assist: 4 Gait Persons Needed: 1 Gait Assistive Device: FWW Comments/Gait Description Patient ambulated a few feet forward and back and then to the head of the bed. Patient used a rolling walker and needed min assist due to balance and uncoordination. He feels dizzy/light headed when standing. After sitting back on the bed patient states that he is exhausted and needs to lay back down. Balance Sitting Static: Fair Sitting Dynamic: Fair Standing Static: Poor Standing Dynamic: Poor Treatment Patient sat at the edge of the bed for about 5-6 minutes before standing. Assessment/Needs Patient has impaired mobility, strength, endurance, coordination, balance. He fatigues very quickly, is very dizzy/light headed with movement, and is a high fall risk. Rehab Potential: Fair PT Short Term Goals Short Term Goals Time Frame: May 27, 2018 Transfers (B,C,W/C) (FIM): 4 (CGA) Gait (FIM): 2 Gait Distance Comment: 50' Gait Level of Assist: 4 Gait Assistive Device: FWW PT Plan Problem List Problem List: Activity Tolerance, Functional Strength, Safety, Balance, Gait, Transfer, Bed Mobility Treatment/Plan Treatment Plan: Continue Plan of Care Treatment Plan: Bed Mobility, Education, Functional Activity Obdulia, Functional Strength, Gait, Safety, Therapeutic Exercise, Transfers Treatment Duration: May 27, 2018 Frequency: 6 times per week Estimated Hrs Per Day: .25 hour per day (15-30') Patient and/or Family Agrees t: Yes Safety Risks/Education Patient Education: Gait Training, Transfer Techniques, Correct Positioning, Disease Process, Safety Issues Teaching Recipient: Patient Teaching Methods: Demonstration, Discussion Response to Teaching: Reinforcement Needed Discharge Recommendations Plan Patient will perform bed mobility and transfer training, balance and endurance training, functional strengthening, stair training, gait training, and education , to improve functional mobility and independence at home. Therapy D/C Recommendations: Acute Rehab, Home w/ Family Support, [facility] (TCU/NH) Time/GCodes Time In: 1505 Time Out: 1520 Total Billed Treatment Time: 15 Total Billed Treatment 1 visit EVM 15' KRTEK,GABY PT May 20, 2018 15:38
[2018-05-20] MEDS: RT-ALBUTEROL/IPRATROPIUM 3 ML (DUONEB) VIAL INH SCH ×2 (16:22→19:26)
[2018-05-20] MEDS ORDERED: ACETAMINOPHEN 500 MG TAB (TYLENOL) PO PRN (16:30)
[2018-05-20] MEDS ORDERED: HYDROcodone/APAP 5 MG/325 MG (LORTAB) TAB PO PRN (16:30)
--- NOTE | 2018-05-20 17:28 | Consultation-Cardiology ---
HPI-Cardiology Cardiology Consultation Date of Consultation 05/20/18 Date of Admission Time Seen by Provider: 17:22 Indication: Acute CVA HPI 57 years old gentleman with history of hypertension and tobaccoism, COPD. Was in his usual state of health until about 4 days ago when he started having chest discomfort, on and off. Yesterday evening he started having dizziness and lightheadedness in addition to vertigo and started having weakness and numbness on the left side of his body which progressed. Patient was admitted today for workup for stroke, he has significant weakness on the left side and he still having headache and dizziness. Denied any previous cardiac history. He had a stress test in the remote past and he was told it was normal. No palpitation. No syncope or near syncopal episodes. 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) Alcohol Use: Past History Recreational Drug Use: Yes (COCAINE, METH, THC, DENIES IV DRUG USE, PER PT ON 05/19/18) Drug of Choice: COCAINE, METH, THC, DENIES IV USE Smoking Status: Current Everyday Smoker Type Used: Cigarettes 2nd Hand Smoke Exposure: Yes Recent Foreign Travel: No Recent Infectious Disease Expo: No Recent Hopitalizations: No Physical Abuse Screen: No Sexual Abuse: No Immunizations Up To Date Tetanus Booster (TDap): Unknown Past Medical History Gastroesophageal reflux disease Family Medical History Significant Family History: Hypertension Family Medical Hx Family history of cancer including lung and stomach cancer No family history of premature coronary artery disease or stroke Constitutional: see HPI, dizziness, weakness EENTM: see HPI, no symptoms reported Respiratory: see HPI; No cough; dyspnea on exertion; No hemoptysis, No orthopnea, No phlegm, No short of breath, No stridor, No wheezing, No other Cardiovascular: see HPI, chest pain; No edema, No Hx of Intervention, No palpitations, No syncope, No vascular heart diseas, No other Gastrointestinal: no symptoms reported, see HPI Genitourinary: no symptoms reported, see HPI Musculoskeletal: no symptoms reported, see HPI Skin: no symptoms reported, see HPI Psychiatric/Neurological: See HPI, Headache, Numbness, Weakness (On the left side) Reviewed Test Results Reviewed Test Results Lab Laboratory Tests Test 05/19/18 22:35 05/20/18 00:05 05/20/18 01:30 05/20/18 06:44 Range/Units White Blood Count 8.4 11.3 H 5.8 4.3-11.0 10^3/uL Red Blood Count 5.16 4.72 4.63 4.35-5.85 10^6/uL Hemoglobin 15.8 14.8 14.6 13.3-17.7 G/DL Hematocrit 45 41 40 40-54 % Mean Corpuscular Volume 86 87 87 80-99 FL Mean Corpuscular Hemoglobin 31 31 32 25-34 PG Mean Corpuscular Hemoglobin Concent 36 36 36 32-36 G/DL Red Cell Distribution Width 13.2 12.8 12.8 10.0-14.5 % Platelet Count 141 104 L 98 L 130-400 10^3/uL Mean Platelet Volume 12.7 H 13.1 H 12.7 H 7.4-10.4 FL Neutrophils (%) (Auto) 57 88 H 84 H 42-75 % Lymphocytes (%) (Auto) 30 7 L 11 L 12-44 % Monocytes (%) (Auto) 10 5 5 0-12 % Eosinophils (%) (Auto) 2 0 0 0-10 % Basophils (%) (Auto) 1 0 0 0-10 % Neutrophils # (Auto) 4.8 9.9 H 4.8 1.8-7.8 X 10^3 Lymphocytes # (Auto) 2.5 0.8 L 0.7 L 1.0-4.0 X 10^3 Monocytes # (Auto) 0.9 0.5 0.3 0.0-1.0 X 10^3 Eosinophils # (Auto) 0.2 0.0 0.0 0.0-0.3 10^3/uL Basophils # (Auto) 0.1 0.0 0.0 0.0-0.1 10^3/uL Prothrombin Time 15.2 H 12.2-14.7 SEC INR Comment 1.2 0.8-1.4 Activated Partial Thromboplast Time 31 24-35 SEC Sodium Level 142 141 139 135-145 MMOL/L Potassium Level 3.6 3.8 3.7 3.6-5.0 MMOL/L Chloride Level 110 H 110 H 108 H 98-107 MMOL/L Carbon Dioxide Level 23 20 L 21 21-32 MMOL/L Anion Gap 9 11 10 5-14 MMOL/L Blood Urea Nitrogen 13 12 10 7-18 MG/DL Creatinine 1.06 0.92 0.84 0.60-1.30 MG/DL Estimat Glomerular Filtration Rate > 60 > 60 > 60 BUN/Creatinine Ratio 12 13 12 Glucose Level 147 H 144 H 142 H 70-105 MG/DL Calcium Level 9.5 9.0 8.8 8.5-10.1 MG/DL Magnesium Level 2.4 1.9 1.8-2.4 MG/DL Total Bilirubin 0.5 0.4 0.1-1.0 MG/DL Aspartate Amino Transf (AST/SGOT) 20 18 5-34 U/L Alanine Aminotransferase (ALT/SGPT) 26 24 0-55 U/L Alkaline Phosphatase 101 89 40-136 U/L Troponin I < 0.30 <0.30 NG/ML Total Protein 7.0 6.4 6.4-8.2 GM/DL Albumin 4.3 4.0 3.2-4.5 GM/DL TSH [place] Testing 1.55 0.35-4.94 UIU/ML Serum Alcohol < 10 <10 MG/DL Urine Color YELLOW Urine Clarity CLEAR Urine pH 7 5-9 Urine Specific [place] 1.010 L 1.016-1.022 Urine Protein NEGATIVE NEGATIVE Urine Glucose (UA) NEGATIVE NEGATIVE Urine Ketones NEGATIVE NEGATIVE Urine Nitrite NEGATIVE NEGATIVE Urine Bilirubin NEGATIVE NEGATIVE Urine Urobilinogen NORMAL NORMAL MG/DL Urine Leukocyte Esterase NEGATIVE NEGATIVE Urine RBC (Auto) NEGATIVE NEGATIVE Urine RBC NONE /HPF Urine WBC NONE /HPF Urine Squamous Epithelial Cells 0-2 /HPF Urine Crystals NONE /LPF Urine Bacteria NEGATIVE /HPF Urine Casts NONE /LPF Urine Mucus MODERATE H /LPF Urine Culture Indicated NO Urine Opiates Screen NEGATIVE NEGATIVE Urine Oxycodone Screen NEGATIVE NEGATIVE Urine Methadone Screen NEGATIVE NEGATIVE Urine Propoxyphene Screen NEGATIVE NEGATIVE Urine Barbiturates Screen NEGATIVE NEGATIVE Ur Tricyclic Antidepressants Screen NEGATIVE NEGATIVE Urine Phencyclidine Screen NEGATIVE NEGATIVE Urine Amphetamines Screen NEGATIVE NEGATIVE Urine Methamphetamines Screen NEGATIVE NEGATIVE Urine Benzodiazepines Screen NEGATIVE NEGATIVE Urine Cocaine Screen NEGATIVE NEGATIVE Urine Cannabinoids Screen NEGATIVE NEGATIVE Lactic Acid Level 1.62 0.50-2.00 MMOL/L Phosphorus Level 3.2 2.3-4.7 MG/DL Triglycerides Level 79 <150 MG/DL Cholesterol Level 153 < 200 MG/DL LDL Cholesterol Direct 113 1-129 MG/DL VLDL Cholesterol 16 5-40 MG/DL HDL Cholesterol 29 L 40-60 MG/DL Amylase Level 52 25-125 U/L Lipase 31 8-78 U/L Physical Exam Vital Signs Vital Signs - First Documented 05/19/18 05/20/18 22:35 01:30 Temp 96.1 Pulse 66 Resp 16 B/P (MAP) 161/92 (115) Pulse Ox 95 O2 Delivery Room Air O2 Flow Rate 2.00 Capillary Refill : Less Than 3 Seconds General Appearance: WD/WN, Moderate Distress Eyes: Bilateral Eye Normal Inspection, Bilateral Eye PERRL, Bilateral Eye EOMI HEENT: PERRL/EOMI, TMs Normal, Normal ENT Inspection, Pharynx Normal Neck: Full Range of Motion, Normal Inspection, Non Tender, Supple, Carotid Bruit Respiratory: Chest Non Tender, Lungs Clear, Normal Breath Sounds, No Accessory Muscle Use, No Respiratory Distress Cardiovascular: Regular Rate, Rhythm, No Edema, No Gallop, No JVD, No Murmur, Normal Peripheral Pulses Gastrointestinal: Normal Bowel Sounds, No Organomegaly, No Pulsatile Mass, Non Tender, Soft Back: Normal Inspection, No CVA Tenderness, No Vertebral Tenderness Extremity: Normal Capillary Refill, Normal Inspection, Normal Range of Motion, Non Tender, No Calf Tenderness, No Pedal Edema Neurologic/Psychiatric: Alert, Oriented x3, Motor Weakness (On the left side, muscle strength on the left upper extremity is 3/5, on the left lower extremity is 2/5) Skin: Normal Color, Warm/Dry Lymphatic: No Adenopathy A/P-Cardiology Admission Diagnosis Acute CVA Hypertension Hyperlipidemia Tobaccoism Assessment/Plan Acute CVA with left-sided weakness that has progressed over the past 24 hours. Source of his stroke was not identified. Echocardiogram did not show any cardiac source. Planning to do FRANCIS, evaluate carotid ultrasound, add aspirin to Plavix and monitor his tolerance and response Hypertension, continue to monitor blood pressure at this time Hyperlipidemia, LDL 113, I will start Lipitor 10 mg daily and monitor her tolerance and response COPD, emphysema, managed by primary care physician Tadeo, educated on smoking cessation neck Gastroesophageal reflux disease Clinical Quality Measures DVT/VTE Risk/Contraindication: Risk Factor Score Per Nursin RFS Level Per Nursing on Admit: 3=High CHERRY DAILEY MD May 20, 2018 17:27
[2018-05-20] MEDS ORDERED: ASPIRIN E.C. 81 MG (ECOTRIN) TAB PO NR (17:30)
[2018-05-20] MEDS: TAMSULOSIN 0.4 MG (FLOMAX) CAP PO SCH (17:50)
[2018-05-20] MEDS: CALCIUM CARBONATE 500 MG (TUMS) TAB.CHEW PO PRN (20:39)
[2018-05-20] MEDS: ATORVASTATIN 10 MG (LIPITOR) TABLET PO SCH (20:39)
[2018-05-21] VITALS (15 sets, daily range): BP systolic 98–152; BP diastolic 61–91
[2018-05-21] MEDS: RT-ALBUTEROL/IPRATROPIUM 3 ML (DUONEB) VIAL INH SCH ×4 (01:40→19:10)
[2018-05-21] MEDS: fentaNYL INJECTION 100 MCG/2 ML AMP IVP PRN ×2 (03:29→09:45)
[2018-05-21] MEDS ORDERED: NS IV 500 ML 500 ML ONE (05:29)
[2018-05-21] MEDS: D5 1/2 NS W/KCL 20 MEQ/L 1,000 ML IV SCH (05:47)
--- NOTE | 2018-05-21 06:06 | Pulmonary Progress Note ---
Subjective Time Seen by Provider: 06:11 Subjective/Events-last exam PT is complaining of occipital WILSON without advanced symptoms in weakness or visual changes. Focused Exam Lactate Level 05/20/18 06:44: Lactic Acid Level 1.62 Exam Exam Vital Signs Date Time Temp Pulse Resp B/P (MAP) Pulse Ox O2 Delivery O2 Flow Rate FiO2 05/21/18 05:00 62 9 107/61 (76) 95 Nasal Cannula 1.00 05/21/18 04:00 64 26 98/64 (75) 93 Nasal Cannula 1.00 05/21/18 04:00 Nasal Cannula 1.00 05/21/18 03:00 70 16 126/73 (90) 95 Nasal Cannula 1.00 05/21/18 02:00 66 12 118/67 (84) 95 Nasal Cannula 1.00 05/21/18 01:40 97 Nasal Cannula 1.00 05/21/18 01:00 60 05/21/18 01:00 62 9 103/64 (77) 94 Nasal Cannula 1.00 05/21/18 00:00 60 10 118/68 (85) 97 Nasal Cannula 1.00 05/20/18 23:48 Nasal Cannula 1.00 05/20/18 23:24 98.1 05/20/18 23:00 64 9 109/58 (75) 96 Nasal Cannula 1.00 05/20/18 22:00 68 17 132/81 (98) 96 Nasal Cannula 1.00 05/20/18 21:00 64 11 109/75 (86) 94 Nasal Cannula 1.00 05/20/18 20:00 67 11 127/60 (82) 93 Nasal Cannula 1.00 05/20/18 20:00 98.2 Nasal Cannula 1.00 05/20/18 20:00 Nasal Cannula 1.00 05/20/18 19:26 97 Nasal Cannula 2.00 05/20/18 19:00 68 05/20/18 19:00 68 10 151/82 (105) 97 Room Air 05/20/18 18:00 71 17 149/80 (103) 97 Room Air 05/20/18 17:00 67 12 151/86 (107) 97 Room Air 05/20/18 16:22 97 Nasal Cannula 2.00 05/20/18 16:00 58 10 154/85 (108) 97 Room Air 6/20/18 16:00 Nasal Cannula 2.00 05/20/18 15:00 58 10 138/83 (101) 97 Room Air 05/20/18 14:00 66 14 154/91 (112) 99 Room Air 05/20/18 13:00 137/76 (96) 05/20/18 13:00 61 11 99 Room Air 05/20/18 13:00 60 05/20/18 12:00 63 16 98 Room Air 05/20/18 12:00 Nasal Cannula 2.00 05/20/18 11:04 61 98 05/20/18 11:04 98 Nasal Cannula 2.00 05/20/18 11:00 59 14 98 Room Air 05/20/18 10:00 76 16 121/83 (96) 99 Room Air 05/20/18 09:00 62 18 125/71 (89) 100 Room Air 05/20/18 08:20 Nasal Cannula 2.00 05/20/18 08:20 97.6 Room Air 05/20/18 08:00 60 16 126/68 (87) 99 Room Air 05/20/18 07:00 65 05/20/18 07:00 65 24 154/82 (106) 97 Room Air I & O 05/21/18 07:00 Intake Total 1690 ml Output Total 2350 ml Balance -660 ml General Appearance: No Apparent Distress, WD/WN, Anxious HEENT: Normal ENT Inspection, Pharynx Normal, Moist Mucous Membranes Neck: Full Range of Motion, Normal Inspection, Non Tender, Supple, Carotid Bruit Respiratory: Chest Non Tender, Lungs Clear, Normal Breath Sounds, No Accessory Muscle Use, No Respiratory Distress Cardiovascular: Regular Rate, Rhythm, No Edema, No Gallop, No JVD, No Murmur, Normal Peripheral Pulses Capillary Refill: Less Than 3 Seconds Gastrointestinal: normal bowel sounds, non tender, soft Extremity: Normal Capillary Refill, Normal Inspection, Normal Range of Motion, Non Tender, No Calf Tenderness, No Pedal Edema Neurologic/Psychiatric: Alert, Oriented x3, Depressed Affect Skin: Normal Color, Warm/Dry Lymphatic: No Adenopathy Results Lab Laboratory Tests 05/19/18 22:35 05/20/18 01:30 05/20/18 06:44 Assessment/Plan Assessment/Plan -Acute cerebeller CVA - symptoms much improved - Plavix -Echo has been done shows no intrachamber clots - EF 60-65% -FRANCIS is planed for today -CT and CTA of head reports are still pending Dehydration - improved -IVF Thrombocytopenia -Continue to monitor Hx of small lung nodule - last CT of chest in 2017 here at [facility] -CT of chest - shows stable nodule x 1 yr-- repeat CT scan in 1yr is recommended -Order placed for f/u appt/visit with my office Decreased appetite and wt loss over the last month Hx of tobacco use, ETOH -education Nocturnal hypoxia -managed by PCP -hx of CVA 233 ALEX WEBSTER DO May 21, 2018 06:06
[2018-05-21] MEDS ORDERED: inSUlin DETERMIR 1 UNIT/0.01 ML (LEVEMIR) CHARGE PER UNIT SQ NR (06:30)
[2018-05-21] MEDS ORDERED: MIDAZOLAM 5 MG/5 ML (VERSED) VIAL ONE (07:54)
--- NOTE | 2018-05-21 07:54 | Cardiology Progress Note ---
Subjective Date Seen by Provider: May 21, 2018 Time Seen by Provider: 07:52 Subjective/Events-last exam Patient is laying down in bed, denied any chest pain, his muscle strength is improving, complaining of headache Review of Systems General: No Chills, No Night Sweats, No Fatigue; Malaise; No Appetite; Other ( Headache) HEENT: No Head Aches, No Visual Changes, No Eye Pain, No Ear Pain, No Dysphasia , No Sinus Congestion, No Post Nasal Drip, No Sore Throat, No Other Pulmonary: No Dyspnea, No Cough, No Pleuritic Chest Pain, No Other Cardiovascular: No: Chest Pain, Palpitations, Orthopnea, Paroxysmal Noc. Dyspnea, Edema, Lt Headedness, Other Focused Exam Lactate Level 05/20/18 06:44: Lactic Acid Level 1.62 Objective-Cardiology Exam Last Set of Vital Signs Vital Signs 05/20/18 05/21/18 23:24 06:00 Temp 98.1 Pulse 61 Resp 10 B/P (MAP) 126/70 (88) Pulse Ox 95 O2 Delivery Nasal Cannula O2 Flow Rate 1.00 Capillary Refill : Less Than 3 Seconds I&O Intake and Output 05/21/18 00:00 Intake Total 1640 ml Output Total 2100 ml Balance -460 ml Intake Oral 640 ml IV Total 1000 ml Output Urine Total 2100 ml Daily Weight Change No General: Alert, Oriented X3, Cooperative HEENT: Atraumatic, PERRLA Neck: Supple, No JVD, No Thyromegaly Lungs: Clear to Auscultation, Normal Air Movement Heart: Regular Rate, Normal S1, Normal S2, No Murmurs Abdomen: Normal Bowel Sounds, Soft, No Tenderness, No Hepatosplenomegaly, No Masses Extremities: No Clubbing, No Cyanosis, No Edema, Normal Pulses, No Tenderness/ Swelling Skin: No Rashes, No Breakdown, No Significant Lesion Neuro: Normal Speech, Normal Tone, Sensation Intact, Other (Improvement on the left side) Psych/Mental Status: Mental Status NL, Mood NL A/P-Cardiology Admission Diagnosis Acute CVA Hypertension Hyperlipidemia Tobaccoism Assessment/Plan Acute CVA, left sided weakness, improving. Source of his stroke was not identified. Echocardiogram did not show any cardiac source. Planning to do FRANCIS , evaluate carotid ultrasound, continue on aspirin and Plavix at this time Hypertension, continue to monitor blood pressure at this time Hyperlipidemia, LDL 113, started on Lipitor, continue to monitor COPD, emphysema, managed by primary care physician Tobaccoism, educated on smoking cessation Gastroesophageal reflux disease Clinical Quality Measures DVT/VTE Risk/Contraindication: Risk Factor Score Per Nursin RFS Level Per Nursing on Admit: 3=High CHERRY DAILEY MD May 21, 2018 07:54
--- NOTE | 2018-05-21 07:54 | Cardiac Procedure Note-CS/ASA ---
Pre-Procedure Note Pre-Op Procedure Note H&P Reviewed The H&P was reviewed, patient examined and no changes noted. Date H&P Reviewed: May 21, 2018 Time H&P Reviewed: 07:54 Conscious Sedation Pre-Proced Time Reviewed: 07:54 ASA Class: 3 Airway Mallampati Classification: ([place] appropriate class) I. II. III, IV Lungs Heart ASA score ASA 1: a normal healthy patient ASA 2: a patient with a mild systemic disease (mid diabetes, controlled hypertension, obesity x ASA 3: a patient with a severe systemic disease that limits activity (angina , COPD, prior Myocardial infarction) ASA 4: a patient with an incapacitating disease that is a constant threat to life (CHF, renal failure) ASA 5: a moribund patient not expected to survive 24 hrs. (ruptured aneurysm) ASA 6: a declared brain patient whose organs are being harvested. For emergent operations, add the letter E after the classification Grade 3 Sedation Plan: Analgesia, Amnesia, Plan communicated to team members, Discussed options with patient/fam, Discussed risks with patient/fam Note The patient is an appropriate candidate to undergo the planned procedure, sedation, and anesthesia. The patient immediately re-assessed prior to indication. CHERRY DAILEY MD May 21, 2018 07:54
[2018-05-21] MEDS ORDERED: LIDOCAINE 2% VISCOUS 15 ML UDC ONE (07:59)
[2018-05-21] MEDS ORDERED: MIDAZOLAM 5 MG/5 ML (VERSED) VIAL IVP NR (08:15)
[2018-05-21] MEDS ORDERED: fentaNYL INJECTION 100 MCG/2 ML AMP IVP NR (08:15)
--- NOTE | 2018-05-21 09:08 | Occ Therapy Progress Note ---
Therapy Progress Note 855 Pt on hold while recovering from procedure. Will try again this afternoon for OT evaluation. ANY WORTHY OT May 21, 2018 09:08
[2018-05-21] MEDS: ASPIRIN E.C. 81 MG (ECOTRIN) TAB PO SCH (09:43)
[2018-05-21] MEDS: CLOPIDOGREL 75 MG (PLAVIX) TABLET PO SCH (09:43)
--- NOTE | 2018-05-21 10:21 | Diagnostic Imaging Report ---
PROCEDURE: US carotid duplex, bilateral. TECHNIQUE: Multiple real-time grayscale images were obtained over the carotid arteries in various projections, bilaterally. Additional duplex Doppler and color Doppler images were also obtained. Indication: Stroke. Correlation is made with MRI from 05/20/2018. FINDINGS: Doppler wave form within the common and internal carotid arteries appear within normal limits. There is no evidence of significant atherosclerotic plaquing at the carotid bifurcation. There is no abnormal elevation of the peak systolic velocities. In the proximal internal carotid arteries maximum velocity on the right measured at 66 cm/s. IC/CCA flow within the right vertebral artery. The left vertebral artery cannot be demonstrated and is likely occluded given the patient's left posterior inferior cerebral artery territory infarct and abnormal flow void on prior MRI. IMPRESSION: 1. No evidence of hemodynamically significant carotid artery stenosis. 2. Normal antegrade flow in the right vertebral artery. 3. Flow could not be identified within the left vertebral artery. This is likely occluded given the patient's abnormal flow void on MRI and left PICA territory infarct. This could be further assessed with CT angiography or MR angiography of the neck. Dictated by: Dictated on workstation # [id number]
--- NOTE | 2018-05-21 10:45 | Progress Note-Hospitalist ---
Subjective HPI/CC On Admission Date Seen by Provider: May 21, 2018 Time Seen by Provider: 10:00 CC: Severe dizziness with left sided weakness HPI: This is a 57-year-old white male of Dr. Still from [facility] who presented to the ER following heat exposure with complaints of left-sided weakness with numbness of his left face. CT brain and angiogram of the neck were both negative but showed possible old infarcts. Considering the continued issues he is currently having will obtain MRI of the brain with IV contrast to fully evaluate for possible stroke. I have ordered a lipid panel per stroke protocol and initiated physical therapy and occupational therapy. He denies any current pain and overall has no other significant issues except for the disequilibrium and the severe weakness that he has that he is just never had before. He does smoke and I counseled him for smoking cessation. I did initiate nebulizers per protocol considering the rales and rhonchi on lung exam today. Subjective/Events-last exam Patient about the same Appears to be very drowsy during my exam so we'll limit IV pain medication FRANCIS was normal per cardiology Placed on aspirin and Plavix since admission Spoke to stroke center at yesterday IV steroids will be initiated for exacerbation of COPD and continued nebulizer treatments Inpatient rehabilitation has accepted him for tomorrow admission Vertebral artery not well visualized on ultrasound confirming our suspicion of ischemic stroke at that line of circulation to the cerebellum Will transfer to fourth floor today Review of Systems General: Fatigue, Malaise Pulmonary: Dyspnea, Cough Neurological: Weakness, Confusion Focused Exam Lactate Level 05/20/18 06:44: Lactic Acid Level 1.62 Objective Exam Vital Signs Vital Signs Date Time Temp Pulse Resp B/P (MAP) Pulse Ox O2 Delivery O2 Flow Rate FiO2 05/21/18 10:00 66 10 108/67 (81) 98 Nasal Cannula 1.00 05/21/18 08:00 98.2 Capillary Refill : Less Than 3 Seconds General Appearance: No Apparent Distress, WD/WN, Chronically ill Respiratory: Crackles, Decreased Breath Sounds, Wheezing Cardiovascular: Regular Rate, Rhythm, No Edema Neurologic/Psychiatric: Alert, Oriented x3, No Motor/Sensory Deficits, Depressed Affect Skin: Normal Color, Warm/Dry Lymphatic: No Adenopathy Results/Procedures Lab Patient resulted labs reviewed. Assessment/Plan Assessment and Plan Assess & Plan/Chief Complaint Acute cerebellar stroke Plan: Transfer to fourth floor Plavix and aspirin PT/OT Inpatient rehabilitation tomorrow Monitor closely Smoking cessation Statin therapy Diagnosis/Problems Diagnosis/Problems (1) Cerebellar stroke Status: Acute Assessment & Plan: Ct angiography showed no signs of clot and MRI was required to dx the cerebellar stroke (2) Heat exhaustion Status: Acute Qualifiers: Encounter type: initial encounter Qualified Codes: T67.5XXA - Heat exhaustion, unspecified, initial encounter (3) Paresthesia and pain of left extremity Status: Acute (4) Smoker Status: Chronic (5) Rales Status: Acute (6) COPD (chronic obstructive pulmonary disease) Status: Chronic Assessment & Plan: IV steroids Qualifiers: COPD type: COPD with acute exacerbation Qualified Codes: J44.1 - Chronic obstructive pulmonary disease with (acute) exacerbation (7) Drowsiness Status: Acute (8) PVD (peripheral vascular disease) Status: Chronic Assessment & Plan: Noted on USG and FRANCIS Clinical Quality Measures DVT/VTE Risk/Contraindication: Risk Factor Score Per Nursin RFS Level Per Nursing on Admit: 3=High EVERETTE ULLOA DO May 21, 2018 10:45
[2018-05-21] MEDS: methylPREDNISolone 40 MG/ML (Solu-MEDROL) VIAL IV SCH ×2 (11:20→17:33)
[2018-05-21] MEDS: FAMOTIDINE 20 MG (PEPCID) TABLET PO SCH (11:29)
[2018-05-21] MEDS: PANTOPRAZOLE 20 MG TABLET (PROTONIX) PO SCH (11:29)
--- NOTE | 2018-05-21 13:54 | Occupational Therapy Eval ---
OT Evaluation-General/PLF Medical Diagnosis Admission Date May 20, 2018 at 14:54 Medical Diagnosis: Left sided weakness/CVA Onset Date: May 20, 2018 Therapy Diagnosis Therapy Diagnosis: Weakness, Decreased ADL skills Height/Weight Height (Feet): 5 Height (Inches): 12.80 Weight (Pounds): 163 Weight (Ounces): 3.0 Precautions Precautions/Isolations: Aspiration, Fall Prevention, Standard Precautions Safety Interventions: Notify Family, Reorient-PRN Weight Bear Status Weight Bearing Restriction: Weight Bearing/Tolerated Referral Physician: Haley Rae DO Referral Reason: Activity Tolerance, Self Care, Evaluation/Treatment, Strengthening/ROM Medical History Pertinent Medical History: COPD, GERD, Smoking Additional Medical History Alcohol abuse, drug abuse, emphysema Current History Pt. exposed to heat and became weak on left side. Reviewed History: Yes Social History Home: Single Level Current Living Status: Spouse Entry Into Home: Stairs With Railing, Stairs Without Railing Steps Into Home: 3 ADL-Prior Level of Function ADL PLOF Comments Pt. was independent with all daily skills. DME/Equipment: Shower Occupation: Works at [employer] Self: Yes OT Current Status Subjective Pt. does not report pain, but does report dizziness with movement. Also states that his eyes are sensitive to the light. Appearance Pt. in bed. Getting ready to transfer to 4th floor. Mental Status/Objective Patient Orientation: Person, Place Attachments: IV Current Hand Dominance: Right Upper Extremity ROM Right UE- WFL Left UE- 90 degrees Upper Extremity Coordination Left-impaired. Pt. states, "I can raise my arm I just "dont have control of it. " Upper Extremity Strength Right- 5/5 Left 3/5 bilateral UE strength ADL-Treatment Functional [place] Measure 0=Not Assessed/NA 4=Minimal Assistance 1=Total Assistance 5=Supervision or Setup 2=Maximal Assistance 6=Modified [place] 3=Moderate Assistance 7=Complete IndependenceIRFPAI Quality Coding Scale 6 Independent with activity with or without an assistive device 5 Patient requires set up or clean up by helper. Patient completes activity by themselves 4 Supervision or touching assist (CGA). [place] provide cues , steadying assist 3 The helper provides less than half the effort to complete the activity 2 The helper provides more than half the effort to complete the activity 1 Dependent. The helper does all the effort to complete an activity 7 Patient refused to complete or attempt activity 9 The patient did not perform the activity before the current illness or injury 88 Not attempted due to Medical conditions or safety concerns Lower Body Dressing (FIM): 2 (Pt. unable to doff/don socks sitting on side of bed.) Transfers (B, C, W/C) (FIM): 3 (CGA supine-sit. Pt. very fearful to stand. OT stood in front of him and assisted with stand/pivot. Pt. unsteady on his feet.) Education OT Patient Education: Correct positioning, Modified ADL techniques, Progress toward Goal/Update tx plan, Purpose of tx/functional activities, Reviewed precautions, Rehab process, Transfer techniques Teaching Recipient: Patient Teaching Methods: Demonstration, Discussion Response to Teaching: Verbalize Understanding, Return Demonstration OT Short Term Goals Short Term Goals Time Frame: May 28, 2018 Eating(FIM): 5 Grooming(FIM): 5 Bathing(FIM): 4 Upper Body Dressing(FIM): 4 Lower Body Dressing(FIM): 4 Toileting(FIM): 4 Transfers (B,C,W/C) (FIM): 4 (CGA) Toilet/Commode Transfer(FIM): 4 Shower Transfer(FIM): 4 Additional Short Term Goals: 1-Demonstrate ADL Tasks, 2-Verbalize Understanding , 3-ImproveStrength/Obdulia 1=Demonstrate adherence to instructed precautions during ADL tasks. 2=Patient will verbalize/demonstrate understanding of assistive devices/ modifications for ADL. 3=Patient will improve strength/tolerance for activity to enable patient to perform ADL's. OT Waste Hand Goals Group Home Goals Time Frame: Jun 11, 2018 Eating (FIM): 6 Grooming(FIM): 6 Bathing(FIM): 5 Upper Body Dressing(FIM): 5 Lower Body Dressing(FIM): 5 Toileting(FIM): 6 Transfers (B,C,W/C) (FIM): 6 Toilet/Commode Transfer(FIM): 6 Shower Transfer(FIM): 5 Additional Goals: 1-Demonstrate ADL Tasks, 2-Verbalize Understanding, 3- ImproveStrength/Obdulia 1=Demonstrate adherence to instructed precautions during ADL tasks. 2=Patient will verbalize/demonstrate understanding of assistive devices/ modifications for ADL. 3=Patient will improve strength/tolerance for activity to enable patient to perform ADL's. OT Education/Plan Problem List/Assessment Assessment: Decreased Activ Tolerance, Decreased UE Strength, Dependent Transfers, Impaired Bed Mobility, Impaired Coordination, Impaired I ADL's, Impaired Self-Care Skills, Restricted Funct UE ROM Discharge Recommendations Plan/Recommendations: Continue POC Therapy D/C Recommendations: Acute Rehab Equpiment Recommendations-D/C: Bath Chair Treatment Plan/Plan of Care Treatment,Training & Education: Yes Patient would benefit from OT for education, treatment and training to promote independence in ADL's, mobility, safety and/or upper extremity function for ADL' s. Plan of Care: ADL Retraining, Functional Mobility, UE Funct Exercise/Act Treatment Duration: Jun 11, 2018 Frequency: 5 times per week Estimated Hrs Per Day: .25 hour per day Agreement: Yes Rehab Potential: Good Time/GCodes Start Time: 12:00 Stop Time: 12:15 Total Time Billed (hr/min): 15 Billed Treatment Time 1, NAMITA CURRIE OT May 21, 2018 13:54
[2018-05-21] MEDS: CALCIUM CARBONATE 500 MG (TUMS) TAB.CHEW PO PRN ×2 (13:57→23:22)
--- NOTE | 2018-05-21 14:13 | Physical Therapy Daily Note ---
PT Daily Note-Current Subjective Patient reports he is tired. Agrees to PT. Pain Numeric Pain Scale: 5-Moderate Pain Location: Lower Location Body Site: Neck Pain Description: Pressure Mental Status Patient Orientation: Normal For Age Transfers Functional [place] Measure 0=Not Assessed/NA 4=Minimal Assistance 1=Total Assistance 5=Supervision or Setup 2=Maximal Assistance 6=Modified [place] 3=Moderate Assistance 7=Complete IndependenceIRFPAI Quality Coding Scale 6 Independent with activity with or without an assistive device 5 Patient requires set up or clean up by helper. Patient completes activity by themselves 4 Supervision or touching assist (CGA). [place] provide cues , steadying assist 3 The helper provides less than half the effort to complete the activity 2 The helper provides more than half the effort to complete the activity 1 Dependent. The helper does all the effort to complete an activity 7 Patient refused to complete or attempt activity 9 The patient did not perform the activity before the current illness or injury 88 Not attempted due to Medical conditions or safety concerns Transfers (B, C, W/C) (FIM): 3 Scootin Rollin Supine to/from Sit: 5 Sit to/from Stand: 3 Bed to/from Chair: 3 left lean with ataxia left LE and UE with all movement Gait Training Gait (FIM): 1 Distance (FIM): 1=up to 49 ft Distance: 40' Gait Level of Assist: 3 Gait Persons Needed: 1 Gait Assistive Device: FWW severe ataxia with left lean requiring mod assist to maintain upright position Exercises Supine Ex: Ankle pumps, Quad Set, Heel Slides, Straight leg raise Supine Reps: 15 Seated Therapy Exercises: Ankle pumps, Long arc quads Seated Reps: 15 Assessment Patient voices frustration with fatigue and left sided weakness and decreased balance and mobility. PT educated patient on the side effects of the stroke he had and he was able to calm and voice he understood this was going to be a process. Plan transfer to rehab this week. PT Short Term Goals Short Term Goals Time Frame: May 27, 2018 Transfers (B,C,W/C) (FIM): 4 (CGA) Gait (FIM): 2 Gait Distance Comment: 50' Gait Level of Assist: 4 Gait Assistive Device: FWW PT Plan Treatment/Plan Treatment Plan: Continue Plan of Care Treatment Plan: Bed Mobility, Education, Functional Activity Obdulia, Functional Strength, Gait, Safety, Therapeutic Exercise, Transfers Treatment Duration: May 27, 2018 Frequency: 6 times per week Estimated Hrs Per Day: .25 hour per day (15-30') Patient and/or Family Agrees t: Yes Time/GCodes Time In: 1245 Time Out: 1310 Total Billed Treatment Time: 25 Total Billed Treatment 1 visit EX 10 min GT 15 min AISHA FERNANDEZ PT May 21, 2018 14:13
--- NOTE | 2018-05-21 15:30 | CONSULTATION REPORT ---
DATE OF SERVICE: 05/21/2018 ATTENDING PHYSICIAN: Dr. Rae. SUMMARY: After reviewing the patient's records, interviewing him and examining him, this is a 57-year-old white man that was transferred from [facility] because of question stroke following a heat exposure. All his brain tests were negative. He was found to have urinary retention and a catheter was inserted with recovery of 800 mL of urine. No hematuria. Kidney function is normal. The patient's admits to a bashful bladder, but also had nocturia x3 in the past and some postvoid dribbling, he was on no medication for it. SOCIAL HISTORY: The patient is . 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 Past history of alcohol abuse. Present history of drugs and smokes cigarettes every day. ALLERGIES: Has no seasonal allergies. PAST MEDICAL HISTORY: COPD and gastroesophageal reflux disease. FAMILY HISTORY: Hypertension. REVIEW OF SYSTEMS: Otherwise, negative. PHYSICAL EXAMINATION: VITAL SIGNS: Per chart. GENERAL: Well-nourished, well developed in no acute distress. HEENT: Normocephalic. ENT unremarkable. NECK: Supple. No bruits. CHEST: Clear, nontender. HEART: Regular rate and rhythm, no murmur. ABDOMEN: Soft. No CVA tenderness. EXTREMITIES: Lower extremity, no edema or cyanosis. NEUROLOGIC: Grossly intact. Oriented x3. RECTAL: Exam deferred at this point. ASSESSMENT: 1. Urinary retention, benign prostatic hyperplasia with or without neurogenic bladder. 2. Bashful bladder. 3. Heat exhaustion. 4. Gastroesophageal reflux disease. 5. Chronic obstructive pulmonary disease and smoker. PLAN: I have started him yesterday on Flomax. We will probably give him a trial of voiding on Friday and manage accordingly. If he fails a trial of voiding or has significant residual then we will do a workup for BPH and prostatism. This was fully explained to him and his family. Job ID: [id number] DocumentID: [id number] Dictated Date: 05/21/2018 12:01:11 Heating Mechanic Date: 05/21/2018 15:30:14 Dictated By: AMAN MORA MD
[2018-05-21] MEDS: TAMSULOSIN 0.4 MG (FLOMAX) CAP PO SCH (17:32)
[2018-05-21] MEDS: ATORVASTATIN 10 MG (LIPITOR) TABLET PO SCH (21:25)
[2018-05-22 00:25] VITALS: BP 109/63
[2018-05-22] MEDS: CALCIUM CARBONATE 500 MG (TUMS) TAB.CHEW PO PRN (01:15)
[2018-05-22] MEDS: methylPREDNISolone 40 MG/ML (Solu-MEDROL) VIAL IV SCH ×3 (01:16→12:18)
[2018-05-22] MEDS: RT-ALBUTEROL/IPRATROPIUM 3 ML (DUONEB) VIAL INH SCH ×2 (01:36→07:38)
[2018-05-22 04:01] VITALS: BP 110/65
--- NOTE | 2018-05-22 06:37 | Pulmonary Progress Note ---
Subjective Time Seen by Provider: 06:51 Subjective/Events-last exam Respiratory cavanaugh pt is doing well. Focused Exam Lactate Level 05/20/18 06:44: Lactic Acid Level 1.62 Exam Exam Vital Signs Date Time Temp Pulse Resp B/P (MAP) Pulse Ox O2 Delivery O2 Flow Rate FiO2 05/22/18 01:36 96 Nasal Cannula 2.00 05/22/18 00:25 98.1 101 18 109/63 (78) 95 Room Air 05/21/18 20:00 98.0 99 20 139/78 (98) 93 Room Air 05/21/18 19:10 94 Room Air 05/21/18 16:00 97.4 81 18 152/79 (103) 94 Room Air 05/21/18 15:17 92 Room Air 05/21/18 12:07 95 Room Air 05/21/18 12:00 97.6 65 18 149/79 (102) 95 05/21/18 12:00 71 16 120/79 (93) 95 Nasal Cannula 1.00 05/21/18 11:33 98.2 05/21/18 11:33 Room Air 05/21/18 11:00 62 8 148/91 (110) 95 Nasal Cannula 1.00 05/21/18 10:00 66 10 108/67 (81) 98 Nasal Cannula 1.00 05/21/18 09:58 98 Nasal Cannula 4.00 05/21/18 09:00 58 10 111/66 (81) 98 Nasal Cannula 1.00 05/21/18 08:00 Room Air 05/21/18 08:00 98.2 70 12 124/91 (102) 97 Nasal Cannula 1.00 05/21/18 07:00 63 05/21/18 07:00 61 14 119/70 (86) 95 Nasal Cannula 1.00 I & O 05/22/18 07:00 Intake Total 1670 ml Output Total 3500 ml Balance -1830 ml General Appearance: No Apparent Distress, WD/WN, Chronically ill HEENT: Normal ENT Inspection, Pharynx Normal, Moist Mucous Membranes Neck: Full Range of Motion, Normal Inspection, Non Tender, Supple, Carotid Bruit Respiratory: Crackles, Decreased Breath Sounds, Wheezing Cardiovascular: Regular Rate, Rhythm, No Edema Capillary Refill: Less Than 3 Seconds Gastrointestinal: normal bowel sounds, non tender, soft Extremity: Normal Capillary Refill, Normal Inspection, Normal Range of Motion, Non Tender, No Calf Tenderness, No Pedal Edema Neurologic/Psychiatric: Alert, Oriented x3, No Motor/Sensory Deficits, Depressed Affect Skin: Normal Color, Warm/Dry Lymphatic: No Adenopathy Results Lab Laboratory Tests 05/20/18 06:44 Assessment/Plan Assessment/Plan -Acute cerebeller CVA - symptoms much improved - Plavix -Echo has been done shows no intrachamber clots - EF 60-65% -FRANCIS -Carotid dopplers questions vertebral art occlusion - will defer to cardiology and hospitalist. They are aware of results Dehydration - improved -IVF Thrombocytopenia -Continue to monitor Hx of small lung nodule - last CT of chest in 2017 here at [facility] -CT of chest - shows stable nodule x 1 yr-- repeat CT scan in 1yr is recommended -pt wants to f/u with PCP for lung nodule. At this time he does not want to f/u with me. Decreased appetite and wt loss over the last month Hx of tobacco use, ETOH -education Nocturnal hypoxia hx -hx of CVA I discussed patient with Dr. Rae and Dr. De Souza. Plan is for inpatient rehab today. Pt will need f/u CT scan of chest in 1yr. I am going to sign off please call with any questions or concerns. ALEX WEBSTER DO May 22, 2018 06:37
[2018-05-22 08:00] VITALS: BP 129/72
[2018-05-22] MEDS: CLOPIDOGREL 75 MG (PLAVIX) TABLET PO SCH (08:02)
[2018-05-22] MEDS: ASPIRIN E.C. 81 MG (ECOTRIN) TAB PO SCH (08:02)
[2018-05-22] MEDS ORDERED: CATHETER FLUSH 10 ML SYR IV PRN (08:30)
[2018-05-22] MEDS ORDERED: IOHEXOL 350 MG/ML 100 ML (OMNIPAQUE 350) VIAL IV ONE (08:30)
[2018-05-22] MEDS ORDERED: NS 250 ML (IVPB) BAG IV ONE (08:30)
[2018-05-22] MEDS ORDERED: RECEIVED CONTRAST (Hold Metformin) IV SCH (08:30)
[2018-05-22] MEDS ORDERED: POLYETHYLENE GLYCOL 17 GM (MIRALAX) PACK PO SCH (09:45)
[2018-05-22] MEDS ORDERED: LACTULOSE SYRUP 10GM/15ML (ENULOSE) 30ML UDC PO SCH (09:45)
[2018-05-22] MEDS ORDERED: DOCUSATE SODIUM 100 MG (COLACE) CAP PO SCH (09:45)
--- NOTE | 2018-05-22 10:24 | Diagnostic Imaging Report ---
INDICATION: CTA of the neck with contrast Contiguous axial sections were taken through the neck following administration of intravenous contrast. Sagittal and coronal reconstructed images were also obtained. MIP images were performed as well. The MRI brain exam performed on 05/20/2018 noted an acute nonhemorrhagic infarct in the left cerebellar hemisphere. The flow void of the distal left vertebral artery could not be identified and the possibility that the left vertebral artery was occluded was raised. The subsequent carotid Doppler exam performed on 05/21/2018 also failed to show the expected antegrade flow within the left vertebral artery. On this exam the left vertebral artery is nearly completely if not completely occluded. A small wisp of contrast is seen within the left vertebral artery at the level of C2-3. The right vertebral artery is widely patent as are the common and internal carotid arteries. There is no soft tissue mass or abscess visualized. The thyroid gland is generally unremarkable. The 5 MM nodule in the right upper lobe seen on the CT chest exam of 05/20/2018 is again evident and no different. The sagittal images show fairly severe degenerative disc and bony disease at C5-6 and C6-7, and to a lesser degree at C4-5. There is no acute bony abnormality noted. IMPRESSION: 1. 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 There is faint opacification of the distal left vertebral artery at the level of C2-3. 2. There is no abnormality of the right vertebral artery. There is no sign of a hemodynamically significant stenosis of the carotid systems. 3. The small 5 MM nodule in the right apex seen previously is again evident and no different. 4. There is a fairly severe degenerative disc and bony disease in the lower cervical spine. 5. These results were discussed with Dr. Haley Rae. Dictated by: Dictated on workstation # [id number]
--- NOTE | 2018-05-22 11:31 | Discharge Summary-Hospitalist ---
Diagnosis/Chief Complaint Date of Admission May 20, 2018 at 14:54 Date of Discharge Admission Diagnosis Assessment: Left-sided weakness with heat exhaustion Plan: Obtain MRI brain PT and OT Nebulizer treatments Reconcile all home meds Monitor closely Discharge Diagnosis (1) Cerebellar stroke Status: Acute Assessment & Plan: Ct angiography showed no signs of clot and MRI was required to dx the cerebellar stroke (2) Heat exhaustion Status: Acute (3) Paresthesia and pain of left extremity Status: Acute (4) Smoker Status: Chronic (5) Rales Status: Acute (6) COPD (chronic obstructive pulmonary disease) Status: Chronic Assessment & Plan: IV steroids (7) Drowsiness Status: Acute (8) PVD (peripheral vascular disease) Status: Chronic Assessment & Plan: Noted on USG and FRANCIS Discharge Summary Discharge Physical Exam Allergies: Coded Allergies: No Known Drug Allergies (Unverified , 05/19/18) Vitals & I&Os Vital Signs Date Time Temp Pulse Resp B/P (MAP) Pulse Ox O2 Delivery O2 Flow Rate FiO2 05/22/18 12:00 96.7 84 20 131/79 (96) 92 Room Air 05/22/18 07:38 2.00 General Appearance: Alert, Oriented X3, Cooperative Respiratory: Clear to Auscultation, Normal Air Movement Cardiovascular: Regular Rate, Normal S1 Abdominal: Normal Bowel Sounds, Soft Neuro: Normal Gait, Normal Speech, Strength at 5/5 X4 Ext Psych/Mental Status: Mental Status NL Hospital Course Hospital course: Labs (last 24 hrs) Patient resulted labs reviewed. Discussion & Recommendations Discharge Planning: <30 minutes discharge planning Discharge Home Medications: Active Scripts Active Flomax (Tamsulosin HCl) 0.4 Mg Cap 0.4 Mg PO DAILY@1800 Iprat-Albut 0.5-3(2.5) mg/3 ml (Ipratropium/Albuterol Sulfate) 3 Ml Ampul.neb 3 Ml INH RTQ6HR 30 Days Aspirin EC (Aspirin) 81 Mg Tablet.dr 81 Mg PO DAILY Atorvastatin Calcium 10 Mg Tablet 10 Mg PO HS Clopidogrel (Clopidogrel Bisulfate) 75 Mg Tablet 75 Mg PO DAILY Reported Acid Binder Caser (RANITIDINE) (Ranitidine HCl) 150 Mg Tablet 150 Mg PO 1200 Prilosec Otc (Omeprazole Magnesium) 20 Mg Tablet.dr 20 Mg PO 1200 Instructions to patient/family Please see electronic discharge instructions given to patient. Clinical Quality Measures DVT/VTE Risk/Contraindication: Risk Factor Score Per Nursin RFS Level Per Nursing on Admit: 3=High Problem Qualifiers (1) Heat exhaustion: Encounter type: initial encounter Qualified Codes: T67.5XXA - Heat exhaustion , unspecified, initial encounter (2) COPD (chronic obstructive pulmonary disease): COPD type: COPD with acute exacerbation Qualified Codes: J44.1 - Chronic obstructive pulmonary disease with (acute) exacerbation EVERETTE ULLOA DO May 22, 2018 11:31
[2018-05-22] MEDS ORDERED: TAMS0.4C98 PO (11:35)
[2018-05-22] MEDS ORDERED: IPRA3AMP INH (11:35)
[2018-05-22] MEDS ORDERED: ATOR10TA66 PO (11:35)
[2018-05-22] MEDS ORDERED: CLOP75TA28 PO (11:35)
[2018-05-22] MEDS ORDERED: ASPI-983 PO (11:35)
--- NOTE | 2018-05-22 11:36 | Discharge Summary-Hospitalist ---
Diagnosis/Chief Complaint Date of Admission May 20, 2018 at 14:54 Date of Discharge Admission Diagnosis Assessment: Left-sided weakness with heat exhaustion Plan: Obtain MRI brain PT and OT Nebulizer treatments Reconcile all home meds Monitor closely Discharge Diagnosis (1) Cerebellar stroke Status: Acute Assessment & Plan: Ct angiography showed no signs of clot and MRI was required to dx the cerebellar stroke 05/22/18: CT angiogram of the neck performed showing chronic blockage spoke to stroke center and likely this was chronically occluded which acutely occluded no surgical option Considering he just stopped baby aspirin he was taking daily 2 months ago that could have been a factor in a ventral occlusion of the chronic blockage (2) Heat exhaustion Status: Acute (3) Paresthesia and pain of left extremity Status: Acute (4) Smoker Status: Chronic (5) Rales Status: Acute (6) COPD (chronic obstructive pulmonary disease) Status: Chronic Assessment & Plan: IV steroids (7) Drowsiness Status: Acute (8) PVD (peripheral vascular disease) Status: Chronic Assessment & Plan: Noted on USG and FRANCIS Discharge Summary Discharge Physical Exam Allergies: Coded Allergies: No Known Drug Allergies (Unverified , 05/19/18) Vitals & I&Os Vital Signs Date Time Temp Pulse Resp B/P (MAP) Pulse Ox O2 Delivery O2 Flow Rate FiO2 05/22/18 12:00 96.7 84 20 131/79 (96) 92 Room Air 05/22/18 07:38 2.00 General Appearance: Alert, Oriented X3, Cooperative, Other (improved, up in chair) Respiratory: Clear to Auscultation, Normal Air Movement Cardiovascular: Regular Rate, Normal S1, Normal S2 Neuro: Normal Speech, Strength at 5/5 X4 Ext, Other (ataxic) Psych/Mental Status: Mental Status NL, Mood NL Hospital Course Hospital course: Patient had a very complex hospital course he was admitted for heat exhaustion exposure and stroke workup for left-sided weakness revealed no significant thrombosis for thrombectomy or TPA. He was maintained in ICU monitoring closely. Ataxia continued even after IV fluids given for dehydration and heat exhaustion and MRI was obtained revealing left cerebellar stroke. Stroke protocol followed and Dr. De Souza and Dr. Jolene waters consulted. FRANCIS was evaluated to have no clot in the atrium but did show widespread vascular disease indicating peripheral vascular disease long-term from smoking as his risk factor. Carotid ultrasound was not able to visualize the left vertebral artery stenosis CT angiogram of the neck was obtained which revealed occlusion near complete and multiple conversations occurred with the stroke center at per protocol both on Friday and Friday and they reviewed all of the imaging scans from today and on Friday and had no additional surgical options to provide or any addition of medication other than aspirin and Plavix and after CT angiogram of the neck was identified no other further medications were recommended and no surgical option existed. He was deemed stable for discharge to inpatient rehabilitation and not was in process at time of dictation. Smoking cessation counseled. He will be discharged home on Plavix and aspirin for 3 months then we'll discontinue Plavix and maintain aspirin long-term. Urinary retention did occur and urology was consulted maintain catheter until tomorrow then we'll discontinue that and maintain Flomax long-term. Labs (last 24 hrs) Patient resulted labs reviewed. Discussion & Recommendations Discharge Planning: <30 minutes discharge planning Discharge Home Medications: Active Scripts Active Flomax (Tamsulosin HCl) 0.4 Mg Cap 0.4 Mg PO DAILY@1800 Iprat-Albut 0.5-3(2.5) mg/3 ml (Ipratropium/Albuterol Sulfate) 3 Ml Ampul.neb 3 Ml INH RTQ6HR 30 Days Aspirin EC (Aspirin) 81 Mg Tablet. 81 Mg PO DAILY Atorvastatin Calcium 10 Mg Tablet 10 Mg PO HS Clopidogrel (Clopidogrel Bisulfate) 75 Mg Tablet 75 Mg PO DAILY Reported Acid Casket Assembler Metal (RANITIDINE) (Ranitidine HCl) 150 Mg Tablet 150 Mg PO 1200 Prilosec Otc (Omeprazole Magnesium) 20 Mg Tablet. 20 Mg PO 1200 Instructions to patient/family Please see electronic discharge instructions given to patient. Clinical Quality Measures DVT/VTE Risk/Contraindication: Risk Factor Score Per Nursin RFS Level Per Nursing on Admit: 3=High Problem Qualifiers (1) Heat exhaustion: Encounter type: initial encounter Qualified Codes: T67.5XXA - Heat exhaustion , unspecified, initial encounter (2) COPD (chronic obstructive pulmonary disease): COPD type: COPD with acute exacerbation Qualified Codes: J44.1 - Chronic obstructive pulmonary disease with (acute) exacerbation EVERETTE ULLOA DO May 22, 2018 11:36
[2018-05-22 12:00] VITALS: BP 131/79
[2018-05-22] MEDS: FAMOTIDINE 20 MG (PEPCID) TABLET PO SCH (12:23)
[2018-05-22] MEDS: PANTOPRAZOLE 20 MG TABLET (PROTONIX) PO SCH (12:23)
--- NOTE | 2018-05-22 14:46 | Progress Note-Cardiology ---
Cardiology SOAP Progress Note Subjective: No cp or palp or syncope Continues with L-sided weakness and poor balance Objective: I&O/Vital Signs 05/22/18 05/22/18 05/22/18 05/22/18 04:01 07:38 08:00 12:00 Temp 97.9 98.8 96.7 Pulse 89 82 84 Resp 16 20 20 B/P (MAP) 110/65 (80) 129/72 (91) 131/79 (96) Pulse Ox 94 96 93 92 O2 Delivery Room Air Nasal Cannula Room Air Room Air O2 Flow Rate 2.00 05/22/18 00:00 Intake Total 670 ml Output Total 2725 ml Balance -2055 ml Weight (Pounds): 164 Weight (Ounces): 1.0 Weight (Calculated Kilograms): 74.759556 Constitutional: AAO x 3, well-developed, well-nourished Respiratory: No accessory muscle use; lungs clear to percussion, lungs clear to auscultation Cardiovascular: regular rate-rhythm, S1 and S2, systolic murmur (faint ZAYNAB at card base) Gastrointestional: No tender; soft; No guarding, No rebound; audible bowel sounds Extremities: No clubbing, No cyanosis, No significant edema Neurologic/Psychiatric: other (2-3/5 power on the L side) Skin: No rash on exposed areas, No ulcerations on exposed areas A/P: Assessment: L-cerebellar, nonhemorrhagic stroke, presenting with L-sided weakness and L face numbness, managed by Dr Rae CT angio of neck on 05/22/18 showed total or near-total occlusion of the L vertebral. This has been managed by Dr Rae who has been in touch with the stroke and neuroradiology team at [facility] No cardiac thrombus on echo and FRANCIS during this hospitalization by Dr De Souza. LVEF was 65-70% Hypertension Hyperlipidemia treated with Lipitor COPD, emphysema, managed by primary care physician Tadeo, advised to quit Gastroesophageal reflux disease Plan: * Complex management * I spoke with the patient and his , reviewed records, and discussed his case with Dr Fernández of the Intensive Care [facility] * Recommend discussion of the case with the Stroke and Neuroradiology team at [facility]. Dr Rae is managing the stroke and has already spoken with the afore- mentioned team and is implementing their recommendations * We recommend outpatient cardiac f/u with Dr De Souza, his nursing home manager LIDIA KESSLER MD [facility] May 22, 2018 14:46
== END 2018-05-22 14:37 | DRG 66 ==
LOC: EDUNIT# 22:33 → ER 22:34 → 4TH 05-20 00:01 → ICU 05-20 01:27 → OBSVTOIN 05-20 14:54 → 4TH 05-21 12:15
PROVIDERS: ADMIT Internal Medicine; ATTEND Internal Medicine
DX: I63.9 Cerebral infarction, unspecified (principal); I67.2 Cerebral atherosclerosis; T67.5XXA Heat exhaustion, unspecified, initial encounter; R29.898 Other symptoms and signs involving the musculoskeletal system; E86.0 Dehydration; N40.1 Benign prostatic hyperplasia with lower urinary tract symptoms; R33.8 Other retention of urine; I10 Essential (primary) hypertension; F17.210 Nicotine dependence, cigarettes, uncomplicated; E78.5 Hyperlipidemia, unspecified; R09.89 Other specified symptoms and signs involving the circulatory and respiratory systems; J44.9 Chronic obstructive pulmonary disease, unspecified; R40.0 Somnolence; I73.9 Peripheral vascular disease, unspecified; D69.6 Thrombocytopenia, unspecified; R91.1 Solitary pulmonary nodule; G47.34 Idiopathic sleep related nonobstructive alveolar hypoventilation; R63.4 Abnormal weight loss; K21.9 Gastro-esophageal reflux disease without esophagitis
CPT/HCPCS: 36415; 70450; 70496; 70498; 70553; 71045; 71250; 80048; 80053; 80061; 80306; 80320; 81000; 82150; 83605; 83690; 83735; 84100; 84443; 84484; 85025; 85610; 85730; 93005; 93041; 93306; 93320; 93325; 93880; 94640; 94664; 94760; 96361; 96374; 96375; 96376; G0378

== ENCOUNTER 2018-05-22 12:55 | Inpatient (IN) | payer BC ==
[~2018-05-22] VITALS: Ht 172.7 cm; Wt 74.8 kg
[~2018-05-22 12:55] MED LIST changes: +ASPI-983 PO; +ATOR10TA66 PO; +CLOP75TA28 PO; +IPRA3AMP31 INH; +OMEP20TA33 PO; +RANI-515 PO; -RT-ALBUTEROL SULF 2.5 MG/3 ML PRE-MIX VIAL IH ONE; +TAMS0.4C98 PO
[2018-05-22] MEDS ORDERED: CALCIUM CARBONATE 500 MG (TUMS) TAB.CHEW PO PRN (14:45)
[2018-05-22] MEDS ORDERED: RT-ALBUTEROL/IPRATROPIUM 3 ML (DUONEB) VIAL INH PRN (14:45)
--- NOTE | 2018-05-22 15:00 | PM&R Post Admission Assessment ---
Post Admission Physician Asses Date seen by provider: May 22, 2018 Time seen by provider: 14:45 Admisison Dx: (1) Cerebellar stroke Status: Acute The preadmission screen agrees with the post admission assessment that the patient is a good candidate for inpatient rehabilitation. The patient will have a comprehensive program of inpatient rehabilitation with a goal of maximizing level of functional independence prior to discharge home with spouse. The patient will have PT/OT ninety minutes per day, each discipline, five days a week for 18 days for gait, strengthening, conditioning, balance, ADLs, any patient/family/caregiver training as necessary. Speech therapy to do cognitive assessment and treat as indicated. Rehabilitation nursing to assist with bowel, bladder, skin, wound care, medication administration, pain management. Hair Designer to assist with discharge planning, community reentry. SCD's for DVT prophylaxis. He appears to be well motivated to participate in three hours of therapy a day. He should be able to tolerate three hours of therapy a day from a medical standpoint. He should benefit from the three hours of therapy a day. He has a reasonable discharge plan, reasonable discharge rehabilitation goals and a supportive family. He has various comorbidities that need to be closely monitored with medications and treatments adjusted on a daily basis as needed. These include: HTN COPD Tobaccoism Urinary retention [facility] code 01.3 Etiologic DX Acute nonhemorragic left cerebellar infarct Barriers to discharge for this patient who had been independent prior to this are for him to be modified independent to supervision for ADLs and mobility skills prior to discharge home with spouse, so as to lessen the burden of the caregivers. Risks for this patient include: 1. Fall 2. Fracture 3. DVT 4. Pulmonary embolism 5. Wound infection 6. Skin breakdown 7. Contractures 8. Poorly controlled pain 9. Urinary retention 10. UTI 11. Respiratory infection 12. Aspiration 13, recuurent stroke 14. Acute exacerbation of COPD Estimated Length of Stay: 18days Prognosis: Rehab prognosis appears good for goal of discharge home with spouse modified independent to supervision for ADLs and mobility skills. General: Alert, Oriented X3, Cooperative, No Acute Distress HEENT: Atraumatic, PERRLA, EOMI, Mucous Memb Moist/[place] Neck: Supple, No JVD Lungs: Clear to Auscultation Heart: Regular Rate Abdomen: Normal Bowel Sounds, Soft, No Tenderness Extremities: No Edema Neuro: Other (Left sided weakness and dyscoordination) CELENA LOYOLA MD May 22, 2018 15:00
--- NOTE | 2018-05-22 15:05 | ST Cognitive Linguistic Eval ---
Speech Evaluation-General Medical Diagnosis Cerebellar CVA Therapy Diagnosis Therapy Diagnosis: Cognitive Linguistic Skills WNL Referral Referring Physician: Dr. Lew Heart Reason for Referral: Evaluation/Treatment Cognitive Evaluation Medical History Pertinent Medical History: COPD, GERD, Smoking Current History The patient recently experienced a cerebellar CVA. Initially, the patient experienced aphasia, however, stated he only current difficulty is balance and ambulation. Reviewed History: Yes Speech PLF-Current Status Prior Level of Function The patient denied prior challenges with speech, language, or cognition. Subjective The patient was laying in bed upon entrance. The patient greeted the clinician and was agreeable to participation in the cognitive evaluation. Language Eval: Auditory Comprehends Simple Yes/No Ques: Functional Indent/Objects Multiple Cm: Functional Ident/Pics in Multiple Cm: Functional Follows 1-Step Commands: Functional Follows Complex Directions: Functional Follows General Conversations: Functional Language Eval: Verbal Language Completes Spontaneous Greeting: Functional Produces Auto, Serial Info: Functional Imitates Simple Words/Phrases: Functional Word Finding: Functional Requests Basic Needs: Functional States Basic Personal Info: Functional Expresses Complex Ideas: Functional Cognitive Patient Orientation The patient was oriented to self, location, month, day of week, date, and year. Objective Cognitive Domain Attention: WNL Memory: WNL Problem Solving: Functional Objective Impression The patient demonstrated cognitive linguistic skills within normal limits and appropriate for completion of ADL's. Communication/Social Cognition Comprehension: 6 (Glasses.) Expression: 7 Social Interaction: 7 Problem Solvin Memory: 7 Speech Patient Assess Expression of Ideas/Wants: Expression (4) Understanding Verbal Content: Understands (4) Brief Interview-Mental Status: Yes Repetition of Three Words: Three (3) Temporal Orientation: Year: Correct (3) Temporal Orientation: Month: Accurate within 5 days(2) Temporal Orientation: Day: Correct (1) Recall : Wear to say "Sock": Yes,after cueing (1) Recall : Color: Yes, no cue required (2) Recall : Bed: Yes, no cue required (2) Speech-Plan Treatment Plan Speech Therapy Treatment Plan: Discontinue ST no ST warranted. Frequency: Modified Program (IRF) (No ST warranted.) Estimated Hrs Per Day: Other (No ST warranted.) Rehab Potential: Good Safety Risks/Education Teaching Recipient: Patient Teaching Methods: Discussion Response to Teaching: Verbalize Understanding Education Topics Provided: Results, Recommendations, Plan of Care Time Speech Therapy Time In: 15:15 Speech Therapy Time Out: 15:30 Total Billed Time: 15 Billed Treatment Time 1, KIAH MORROW May 22, 2018 15:04
--- NOTE | 2018-05-22 15:17 | Physical Therapy Evaluation ---
PT Evaluation-General Medical Diagnosis Admission Date May 22, 2018 at 14:34 Medical Diagnosis: left sided weakness Onset Date: May 20, 2018 Therapy Diagnosis Therapy Diagnosis: impaired mobility, balance, coordination, endurance Height/Weight Height (Feet): 5 Height (Inches): 12.80 Weight (Pounds): 164 Weight (Ounces): 1.0 Referral Physician: Sly Reason for Referral: Evaluation/Treatment Medical History Pertinent Medical History: COPD, GERD, Smoking Additional Medical History drug use Social History Home: Single Level Current Living Status: Spouse Entry Into Home: Stairs Without Railing PT Steps Into Home: 3 Prior/Core FIM Prior Level of Function Functional [place] Measure 0=Not Assessed/NA 4=Minimal Assistance 1=Total Assistance 5=Supervision or Setup 2=Maximal Assistance 6=Modified [place] 3=Moderate Assistance 7=Complete [place] Bed Mobility: 7 Transfers (B,C,W/C) (FIM): 7 Gait: 7 PT Evaluation-Current Subjective Patient in bed pre tx, agrees to PT, no complaints of pain. Pt/Family Goals "to get my balance and coordination back" Objective Patient Orientation: Person, Place, Situation Attachments: Lovett Catheter ROM/Strength ROM Lower Extremities WNL Strenght Lower Extremities 5/5 gross bilateral lower extremities Neuromuscular (Tone, Coordination, Reflexes) Patient had a fair cardona slide test bilaterally but obviously has impaired coordination bilaterally but more on the left side. Patient seems to have decreased peripheral vision on the left side and some difficulty tracking on the left. He states that his vision is blurry on the left side. Sensory Vision: Hearing: Functional Sensation Right Lower Extremit: Intact Sensation Left Lower Extremity: Impaired Sensation Lower Extremities Patient has intact light touch sensation on the left side but states his sensation is dull. Transfers Functional [place] Measure 0=Not Assessed/NA 4=Minimal Assistance 1=Total Assistance 5=Supervision or Setup 2=Maximal Assistance 6=Modified [place] 3=Moderate Assistance 7=Complete IndependenceIRFPAI Quality Coding Scale 6 Independent with activity with or without an assistive device 5 Patient requires set up or clean up by helper. Patient completes activity by themselves 4 Supervision or touching assist (CGA). [place] provide cues , steadying assist 3 The helper provides less than half the effort to complete the activity 2 The helper provides more than half the effort to complete the activity 1 Dependent. The helper does all the effort to complete an activity 7 Patient refused to complete or attempt activity 9 The patient did not perform the activity before the current illness or injury 88 Not attempted due to Medical conditions or safety concerns Transfers (B, C, W/C) (FIM): 3 Scootin Rollin Roll Left to Right (QC): 4 Supine to/from Sit: 4 Sit to/from Stand: 3 bed t/f WC(FIM only if WC use): 3 Sit to Lying (QC): 4 Lying to Sitting/Side of Bed(Q: 4 Sit to Stand (QC): 2 Chair/Ece-ws-Iastg Xfer(QC): 2 Car Transfer (QC): 2 Patient performs bed mobility and supine <-> sit with CGA, sit <-> stand with mod assist and stand pivot transfer with mod assist, car transfer mod assist. Patient needs cues for positioning and safety. He tends to move quickly/ impulsively and needs cues for concentration. Gait Does the Patient Walk?: Yes Mode of Locomotion: Walk Anticipated Mode of Locomotion: Walk Gait (FIM): 1 Walk 10 feet (QC): 3 Walk 50 ft with 2 Turns(QC): 88 Walk 150 ft (QC): 88 Walking 10ft/uneven surface-QC: 88 Distance: 20 Gait Level of Assist: 3 Gait Persons Needed: 1 Gait Assistive Device: FWW Comments/Gait Description Patient ambulated 20' with a rolling walker with mod assist. He steps very uncoordinated and leans to the left. Wheelchair Training Does the Pt Use a Wheelchair?: Yes Wheelchair (FIM): 4 Distance: 150' Wheelchair Level of Assist: 4 Wheel 50 ft with 2 turns (QC): 3 Wheel 150 ft (QC): 3 Type of Wheelchair: Manual Patient can propel a manual wheelchair 150' with min assist. He needs assist around corners and obstacles. Patient uses his right arm and leg to propel because his left arm is uncoordinated and can't use the left wheel rim very effectively. Stairs If not tested on admit;explain Due to patient's uncoordination and balance impairments, steps are not safe to try at this time. Balance Sitting Static: Fair Sitting Dynamic: Fair Standing Static: Poor Standing Dynamic: Poor Treatment seated exercises x20 (AP, LAQ, hip flexion) Assessment/Needs Patient has impaired balance, coordination, mobility, endurance post cerebellar CVA. He is a high fall risk. Rehab Potential: Fair PT Short Term Goals Short Term Goals Time Frame: May 29, 2018 Transfers (B,C,W/C) (FIM): 4 (min assist) Gait (FIM): 2 Gait Distance Comment: 50' Gait Level of Assist: 4 (min assist) Gait Assistive Device: FWW PT Mycology Teacher Goals Fpc Goals PT Mycology Teacher Goals Time Frame: Jun 12, 2018 Transfers (B,C,W/C) (FIM): 4 Sit to Lying (QC): 4 Lying-Sitting on Side/Bed(QC): 4 Sit to Stand (QC): 4 Rollin Roll Left to Right (QC): 4 Chair/Wek-qd-Fpqzv Xfer(QC): 4 Car Transfer (QC): 4 Gait (FIM): 4 Distance: 150' Walk 10 feet (QC): 4 Walk 10ft-Uneven Surface(QC): 4 Walk 50ft with 2 Turns (QC): 4 Walk 150 ft (QC): 4 Gait Level of Assist: 4 Gait Assistive Device: FWW Stairs (FIM): 2 # of Steps: 4 1 Step (curb) (QC): 4 4 Steps (QC): 4 PT Plan Problem List Problem List: Activity Tolerance, Functional Strength, Safety, Balance, Gait, Transfer, Bed Mobility Treatment/Plan Treatment Plan: Continue Plan of Care Treatment Plan: Bed Mobility, Concurrent Therapy, Education, Functional Activity Obdulia, Functional Strength, Group Therapy, Gait, Safety, Therapeutic Exercise, Transfers Treatment Duration: Jun 12, 2018 Frequency: At least 5 of 7 days/Wk (IRF) Estimated Hrs Per Day: 1.5 hours per day Patient and/or Family Agrees t: Yes Safety Risks/Education Patient Education: Gait Training, Transfer Techniques, Correct Positioning, W/ C Management, Disease Process, Safety Issues Teaching Recipient: Patient Teaching Methods: Demonstration, Discussion Response to Teaching: Reinforcement Needed Discharge Recommendations Plan Patient will perform bed mobility and transfer training, balance and endurance training, functional strengthening, stair training, gait training, and education , to improve functional mobility and independence at home. Therapy D/C Recommendations: Home w/ Family Support Time/GCodes Time In: 1420 Time Out: 1505 Total Billed Treatment Time: 45 Total Billed Treatment 1 visit EVM 30' FA 15' GABY NORMAN PT May 22, 2018 15:17
--- NOTE | 2018-05-22 16:19 | Occupational Therapy Eval ---
OT Evaluation-General/PLF Medical Diagnosis Admission Date May 22, 2018 at 14:34 Medical Diagnosis: Cerebellar CVA Onset Date: May 20, 2018 Therapy Diagnosis Therapy Diagnosis: decr self care, decr coord, decr balance, decr funct mob, decr strength Height/Weight Height (Feet): 5 Height (Inches): 12.80 Weight (Pounds): 164 Weight (Ounces): 1.0 Precautions Precautions/Isolations: Fall Prevention, Standard Precautions Referral Physician: Sly Referral Reason: Evaluation/Treatment Medical History Pertinent Medical History: COPD, GERD, PVD, Smoking Additional Medical History Alcohol abuse, drug abuse, emphysema Current History Pt exposed to heat and became weak on L side Reviewed History: Yes Social History Home: Single Level Current Living Status: Spouse Entry Into Home: Stairs Without Railing Steps Into Home: 3 ADL-Prior Level of Function ADL PLOF Comments Pt reported that he was able to manage all of his basic self care needs. 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 DME/Equipment Comments Pt is having walk in shower installed this weekend. OT Current Status Subjective Pt seen in room, up in bed, agreeable to OT. No pain except heartburn. Appearance Alert, cooperative Mental Status/Objective Attachments: Lovett Catheter, Saline Lock Current Glasses/Contacts: Yes Hearing Aids: Yes (but doesn't use them) Dentures/Partials: Yes Hand Dominance: Right Upper Extremity ROM Grossly WFL bilat, including at shoulders Upper Extremity Coordination Impaired. He reports tremors in R UE prior to CVA Upper Extremity Sensation Pt reported he can feel light touch and hot/cold but L arm feels tingly. Upper Extremity Strength Grossly 5/5 R, 4/5 L Pt reported blurred vision. Visual screening does not show deficits with visual field and eye movements are fairly smooth, although he reported that at times it feels like eyes are jerking or quivering. ADL-Treatment ADL-Current Pt was able to move from supine to sit EOB without physical assistance but he leaned to the L side and reported being light-headed when he cot up. Able to scoot to sit EOB, supporting himself with bilat arms and also able to unweight both arms and maintain balance briefly. Sat EOB approx 10-15 minutes without falling over. Also able to get back into bed but movements are impulsive. Pt reported that he was able to feed himself with R hand today, including opening packages but said he usually eats with a soup spoon at home due to tremors. Discussed weighted silverware as an option. PT reported transfers mod assist due to leaning to R and uncoordinated LE movements and recommended two person assist with toilet transfers and toileting. Functional [place] Measure 0=Not Assessed/NA 4=Minimal Assistance 1=Total Assistance 5=Supervision or Setup 2=Maximal Assistance 6=Modified [place] 3=Moderate Assistance 7=Complete IndependenceIRFPAI Quality Coding Scale 6 Independent with activity with or without an assistive device 5 Patient requires set up or clean up by helper. Patient completes activity by themselves 4 Supervision or touching assist (CGA). [place] provide cues , steadying assist 3 The helper provides less than half the effort to complete the activity 2 The helper provides more than half the effort to complete the activity 1 Dependent. The helper does all the effort to complete an activity 7 Patient refused to complete or attempt activity 9 The patient did not perform the activity before the current illness or injury 88 Not attempted due to Medical conditions or safety concerns Eating (FIM): 6 (Pt report, opened packages, fed himself. Has dentures) Eating (QC): 6 Pt declined other ADLs today and will shower/dress with OT in am. He said he showered this morning and was able to do most of it himself but that his balance was a problem during shower. Pt left up in bed, 4 rails up, present , all needs met. Education OT Patient Education: Purpose of tx/functional activities, Rehab process, Safety issues, Use of adapted equipment Teaching Recipient: Patient, Family Teaching Methods: Discussion Response to Teaching: Verbalize Understanding OT Short Term Goals Short Term Goals Time Frame: May 29, 2018 Toileting(FIM): 3 Toilet/Commode Transfer(FIM): 4 Additional Short Term Goals: 1-Demonstrate ADL Tasks, 2-Verbalize Understanding , 3-ImproveStrength/Obdulia 1=Demonstrate adherence to instructed precautions during ADL tasks. 2=Patient will verbalize/demonstrate understanding of assistive devices/ modifications for ADL. 3=Patient will improve strength/tolerance for activity to enable patient to perform ADL's. OT Helium Arc Welder Goals Helium Arc Welder Goals Time Frame: Jun 12, 2018 Eating (FIM): 6 Eating (QC): 6 Groomin Oral Hygiene (QC): 6 Bathing(FIM): 6 Shower/Bathe Self (QC): 6 Upper Body Dressing(FIM): 6 Upper Body Dressing (QC): 6 Lower Body Dressing(FIM): 6 Lower Body Dressing (QC): 6 On/Off Footwear (QC): 6 Toileting(FIM): 6 Toileting Hygiene (QC): 6 Toilet/Commode Transfer(FIM): 6 Toilet/Commode Transfer (QC): 6 Shower Transfer(FIM): 6 Additional Goals: 1-Demonstrate ADL Tasks, 2-Verbalize Understanding, 3- ImproveStrength/Obdulia 1=Demonstrate adherence to instructed precautions during ADL tasks. 2=Patient will verbalize/demonstrate understanding of assistive devices/ modifications for ADL. 3=Patient will improve strength/tolerance for activity to enable patient to perform ADL's. OT Education/Plan Problem List/Assessment Assessment: Decreased Activ Tolerance, Decreased UE Strength, Dependent Transfers, Impaired Coordination, Impaired Funct Balance, Impaired Self-Care Skills, Visual-Perceptual Deficit Pt would benefit from skilled OT to ncrease his independence in basic self care to allow him to safely return home Discharge Recommendations Plan/Recommendations: Continue POC Treatment Plan/Plan of Care Treatment,Training & Education: Yes Patient would benefit from OT for education, treatment and training to promote independence in ADL's, mobility, safety and/or upper extremity function for ADL' s. Plan of Care: ADL Retraining, Functional Mobility, Group Exercise/Act as Ind ( education, exercise, socialization, visual coord, functional activities), UE Funct Exercise/Act, UE Neuromus Re-Ed/Coord, Visual/Perceptual Retrain Treatment Duration: Jun 12, 2018 Frequency: At least 5 of 7 days/Wk (IRF) Estimated Hrs Per Day: 1.5 hours per day Agreement: Yes Rehab Potential: Good Time/GCodes Start Time: 15:37 Stop Time: 16:07 Total Time Billed (hr/min): 30 Billed Treatment Time visit, 30 minutes evaluation high intensity ANY WORTHY OT May 22, 2018 16:19
--- NOTE | 2018-05-22 17:16 | HISTORY AND PHYSICAL ---
DATE OF SERVICE: 05/22/2018 CHIEF COMPLAINT: Difficulty with controlling left arm and leg. 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 The patient had an MRI of the brain revealing a nonischemic left cerebellar stroke accounting for his symptoms. The patient was out of the side of the window for TPA. A CT of the neck revealed left vertebral artery nearly completely is not completely occluded throughout much of his length. The patient was placed on a statin and Plavix therapy was begun. The patient was felt to be appropriate for inpatient rehabilitation. The patient was transferred to inpatient rehabilitation unit with the approval of his commercial insurance. Currently, he requires assistance for his ADLs and mobility skills, speech and cognition appear intact.He is mod assist for transfers and gait with walker.He is Modified Independent for eating. PAST MEDICAL HISTORY: Tobaccoism, COPD, GERD. PAST SURGICAL HISTORY: Noncontributory. ALLERGIES: No known medication allergies. FAMILY HISTORY: Hypertension. SOCIAL HISTORY: He is and lives with his spouse in [place], [place]. PCP is Estefani Still MD, Hospitalist Dr. Haley Rae have been following the patient here as well as cardiology Dr. De Souza. Echocardiogram did not reveal any cardiac source. Recommendation from cardiology was to continue on Plavix, statin and aspirin. REVIEW OF SYSTEMS: Ten point review of systems significant for left-sided discoordination, some dyspnea on exertion, the patient on respiratory treatments. MEDICATIONS: 1. Flomax 0.4 mg p.o. daily. 2. DuoNeb treatments q.6h. 3. ASA 81 mg p.o. daily. 4. Lipitor 10 mg p.o. at bedtime. 5. Plavix 75 mg p.o. daily. 6. Protonix 20 mg p.o. daily. 7. Pepcid 20 mg p.o. daily 8. Lortab 5 generic 1 tablet p.o. q.4 hours p.r.n. moderate pain. PHYSICAL EXAMINATION: GENERAL: Significant for a pleasant male appearing in stated age, alert and oriented, lying in bed, no acute distress. VITAL SIGNS: He is afebrile, pulse is 84, respirations 20, blood pressure 131/79, O2 sat 92% on room air. HEENT: Vision, speech, hearing grossly intact. No oral lesion is noted. NECK: Supple without mass. HEART: Regular rhythm. CHEST: Clear. ABDOMEN: Soft, nontender, bowel sounds present. EXTREMITIES: No lower leg edema, no calf tenderness. MUSCULOSKELETAL: The patient has discoordination on the left, but fairly good passive range of motion in all 4 limbs. NEUROLOGIC: Strength is limited on the left at 4/5 with discoordination, difficulty controlling his arms and legs on the left side.Strength RUE 5/5. Sensation Patient reports dullness in left leg and tingling in Left hand. Cognition is grossly intact. Strength Both lower limbs 5/5 grossly.Patient with decreased coordination on left upper and lower limb.. Indwelling graham catheter to DD. IMPRESSION: 1. Ambulatory dysfunction secondary to left nonischemic cerebellar stroke with resulting left-sided weakness and discoordination. 2. Occlusion of left vertebral artery. 3. Urinary retention, Urology following, on Flomax with Graham catheter in place to have TOV tomorrow. 4. Chronic obstructive pulmonary disease, on respiratory treatments. 5. Tobaccoism, currently abstaining. 6. Gastroesophageal reflux disease, on Protonix. PLAN: The patient will have a comprehensive program of inpatient stroke rehabilitation with goal of maximizing level of functional independence prior to discharge home with family and spouse. The patient will have PT, OT 90 minutes per day each discipline, 5 days a week for 18 days with the above goals in mind returning the patient home with spouse as independent as possible. Please see post-admission physician evaluation for details of plan of care. Speech therapy to do cognitive speech reassessment and treat as indicated. Rehabilitation nursing assist with bowel, bladder, skin care, medication administration, pain management and social insurance adviser assist with discharge planning, community reentry. Follow up with hospital service, Cardiology and Urology p.r.n. TOV in am as per [facility]. ESTIMATED LENGTH OF STAY: 18 days. PROGNOSIS: Rehab prognosis appears good for goal of discharging home with spouse. Hopefully, modified independent to supervision for ADLs and mobility skills. DIET: Regular. CODE STATUS: Full code. Job ID: [id number] DocumentID: [id number] Dictated Date: 05/22/2018 14:53:01 Civil Engineering Professor Date: 05/22/2018 17:15:49 Dictated By: CELENA LOYOLA MD MTDD
[2018-05-22 17:35] VITALS: BP 160/76
[2018-05-22] MEDS: TAMSULOSIN 0.4 MG (FLOMAX) CAP PO SCH (17:38)
[2018-05-22] MEDS: RT-ALBUTEROL/IPRATROPIUM 3 ML (DUONEB) VIAL INH SCH (21:31)
[2018-05-22] MEDS: ATORVASTATIN 10 MG (LIPITOR) TABLET PO SCH (21:41)
[2018-05-22] MEDS: LACTULOSE SYRUP 10GM/15ML (ENULOSE) 30ML UDC PO SCH (21:43)
[2018-05-22] MEDS: DOCUSATE SODIUM 100 MG (COLACE) CAP PO SCH (21:43)
[2018-05-22] MEDS: POLYETHYLENE GLYCOL 17 GM (MIRALAX) PACK PO SCH (21:44)
[2018-05-23] MEDS: RT-ALBUTEROL/IPRATROPIUM 3 ML (DUONEB) VIAL INH SCH ×4 (02:50→20:59)
[2018-05-23 05:03] VITALS: BP 124/73
[2018-05-23] MEDS: HYDROcodone/APAP 5 MG/325 MG (LORTAB) TAB PO PRN ×2 (06:38→13:41)
--- NOTE | 2018-05-23 07:59 | PM & R (SOAP) Progress Note ---
Subjective This was a face to face visit with the patient. Date Seen by Provider: May 23, 2018 Time Seen by Provider: 07:35 Subjective/Events-last exam Patient was seen in his room this AM Patients spouse in to visit Patient Mod assist for transfers due to lack of coordination on left.Patient adjusting well to unit. Review of Systems Neurological: Incoordination Objective Physician Exam Last Set of Vital Signs Vital Signs Date Time Temp Pulse Resp B/P (MAP) Pulse Ox O2 Delivery O2 Flow Rate FiO2 05/23/18 07:02 95 Room Air 05/23/18 05:03 98.9 89 20 124/73 (90) Capillary Refill : I&O Intake and Output 05/23/18 00:00 Intake Total 200 ml Output Total 250 ml Balance -50 ml Intake Oral 200 ml Output Urine Total 250 ml Daily Weight Change No General: Alert, Oriented X3, Cooperative, No Acute Distress HEENT: Atraumatic, PERRLA, EOMI, Mucous Memb Moist/[place] Neck: Supple, No JVD Lungs: Clear to Auscultation Heart: Regular Rate Abdomen: Normal Bowel Sounds, Soft, No Tenderness Extremities: No Edema Neuro: Other (Left sided weakness and dyscoordination) Assessment/Plan Assessment and Plan Left ischemic cerebellar stroke with Dyscoordination and weaknees on left COPD receiving resp treatments Tobaccoism Occlusion of left vertebral artery Urianry rtention following Discussed with RN Patient having TOV-monitor for urinary retention GERD on protonix Plan Continue PT/Ot ST has seen and signed off F/U with Medical management and Team Conference next week 05-27-18 Monitor for urinary retention (1) Cerebellar stroke Status: Acute Co-Morbidities that are continuing to impact the rehab process: (include details ) CELENA LOYOLA MD May 23, 2018 07:59
--- NOTE | 2018-05-23 08:40 | Occupational Ther Daily Note ---
OT Current Status-Daily Note Subjective No pain reported but pt. does state that he is tired. Appearance Pt. in bed. Agreeable to work with OT. Mental Status/Objective Patient Orientation: Person, Place, Time, Situation Functional [place] Measure 0=Not Assessed/NA 4=Minimal Assistance 1=Total Assistance 5=Supervision or Setup 2=Maximal Assistance 6=Modified [place] 3=Moderate Assistance 7=Complete [place] ADL-Treatment Functional [place] Measure 0=Not Assessed/NA 4=Minimal Assistance 1=Total Assistance 5=Supervision or Setup 2=Maximal Assistance 6=Modified [place] 3=Moderate Assistance 7=Complete IndependenceIRFPAI Quality Coding Scale 6 Independent with activity with or without an assistive device 5 Patient requires set up or clean up by helper. Patient completes activity by themselves 4 Supervision or touching assist (CGA). [place] provide cues , steadying assist 3 The helper provides less than half the effort to complete the activity 2 The helper provides more than half the effort to complete the activity 1 Dependent. The helper does all the effort to complete an activity 7 Patient refused to complete or attempt activity 9 The patient did not perform the activity before the current illness or injury 88 Not attempted due to Medical conditions or safety concerns Grooming (FIM): 5 (Set up at sink to comb hair.) Bathing (FIM): 4 (Min assist in stance and min assist to wash rear katherine area.) Shower/Bathe Self (QC): 4 Upper Body (FIM): 5 Upper Body Dressing (QC): 4 Lower Body Dressing (FIM): 4 (Min assist to stand and balance while pulling up underwear and shorts.) Lower Body Dressing (QC): 4 On/Off Footwear (QC): 4 Transfers (B, C, W/C) (FIM): 3 (Mod assist with OT in front of him to stand and take small steps to other surface.) Shower Transfer(FIM): 4 Other Treatment Pt. agreeable to treatment. Pt. transferred to wheelchair from bed with mod assist. Able to self propel to closet and pick out clothes. Transferred into shower with min assist. Required close SBA during shower and min assist in stance. Noted that pt. leans to left. Pt. is aware of this and states that his left side, "just doesn't feel part of my body." Pt and spouse are encouraged and educated on progression of current illness. Both verbalize understanding. After ADLs, pt. able to wheel wc to therapy gym. Tolerated this well. Completed fine motor coordination task with pegs and baggage security checker pieces , using left hand. Pt. states, "this feels weird." All needs met for pt. back in room. Transferred back to bed to rest before PT session. Education OT Patient Education: Correct positioning, Modified ADL techniques, Progress toward Goal/Update tx plan, Purpose of tx/functional activities, Reviewed precautions, Rehab process, Transfer techniques Teaching Recipient: Patient Teaching Methods: Demonstration, Discussion Response to Teaching: Verbalize Understanding, Return Demonstration OT Short Term Goals Short Term Goals Time Frame: May 29, 2018 Toileting(FIM): 3 Toilet/Commode Transfer(FIM): 4 Additional Short Term Goals: 1-Demonstrate ADL Tasks, 2-Verbalize Understanding , 3-ImproveStrength/Obdulia 1=Demonstrate adherence to instructed precautions during ADL tasks. 2=Patient will verbalize/demonstrate understanding of assistive devices/ modifications for ADL. 3=Patient will improve strength/tolerance for activity to enable patient to perform ADL's. OT Laborer Sawmill Goals Laborer Sawmill Goals Time Frame: Jun 12, 2018 Eating (FIM): 6 Eating (QC): 6 Groomin Oral Hygiene (QC): 6 Bathing(FIM): 6 Shower/Bathe Self (QC): 6 Upper Body Dressing(FIM): 6 Upper Body Dressing (QC): 6 Lower Body Dressing(FIM): 6 Lower Body Dressing (QC): 6 On/Off Footwear (QC): 6 Toileting(FIM): 6 Toileting Hygiene (QC): 6 Toilet/Commode Transfer(FIM): 6 Toilet/Commode Transfer (QC): 6 Shower Transfer(FIM): 6 Additional Goals: 1-Demonstrate ADL Tasks, 2-Verbalize Understanding, 3- ImproveStrength/Obdulia 1=Demonstrate adherence to instructed precautions during ADL tasks. 2=Patient will verbalize/demonstrate understanding of assistive devices/ modifications for ADL. 3=Patient will improve strength/tolerance for activity to enable patient to perform ADL's. OT Education/Plan Problem List/Assessment Assessment: Decreased Activ Tolerance, Decreased UE Strength, Dependent Transfers, Impaired Coordination, Impaired Funct Balance, Impaired I ADL's, Impaired Self-Care Skills Pt would benefit from skilled OT to ncrease his independence in basic self care to allow him to safely return home Discharge Recommendations Plan/Recommendations: Continue POC Therapy D/C Recommendations: Home w/ Family Support, Occupational Therapy Home Care Comment Equipment needs to be determined. Spouse states that grab bars are being installed in shower at home today. Spouse took a picture of the grab bars that are in hospital shower for reference. Treatment Plan/Plan of Care Treatment,Training & Education: Yes Patient would benefit from OT for education, treatment and training to promote independence in ADL's, mobility, safety and/or upper extremity function for ADL' s. Plan of Care: ADL Retraining, Functional Mobility, Group Exercise/Act as Ind ( education, exercise, socialization, visual coord, functional activities), UE Funct Exercise/Act, UE Neuromus Re-Ed/Coord, Visual/Perceptual Retrain Treatment Duration: Jun 12, 2018 Frequency: At least 5 of 7 days/Wk (IRF) Estimated Hrs Per Day: 1.5 hours per day Agreement: Yes Rehab Potential: Good Time/GCodes Start Time: 07:25 Stop Time: 08:30 Total Time Billed (hr/min): 65 Billed Treatment Time 1, ADL x 45minutes, FA x 20minutes NAMITA BLANKENSHIP OT May 23, 2018 08:40
[2018-05-23] MEDS: CLOPIDOGREL 75 MG (PLAVIX) TABLET PO SCH (09:16)
[2018-05-23] MEDS: DOCUSATE SODIUM 100 MG (COLACE) CAP PO SCH ×2 (09:16→20:45)
[2018-05-23] MEDS: ASPIRIN E.C. 81 MG (ECOTRIN) TAB PO SCH (09:16)
[2018-05-23] MEDS: LACTULOSE SYRUP 10GM/15ML (ENULOSE) 30ML UDC PO SCH ×2 (09:17→21:23)
[2018-05-23] MEDS: POLYETHYLENE GLYCOL 17 GM (MIRALAX) PACK PO SCH ×2 (09:17→21:24)
--- NOTE | 2018-05-23 11:31 | Progress Note-Hospitalist ---
Subjective HPI/CC On Admission Date Seen by Provider: May 23, 2018 Time Seen by Provider: 10:45 Subjective/Events-last exam Patient doing much better Refusing most of the bowel regimen that I ordered and is taking only Colace which she hasn't had a BM since 05/19/18 but he reports that he is not in any discomfort Plavix and aspirin tolerated Nebulizer treatments tolerated IV steroids reviewed Urinary catheter removed today so hopefully Flomax will help resolve the urinary retention issue Review of Systems General: Fatigue Gastrointestinal: Constipation Neurological: Incoordination Objective Exam Vital Signs Vital Signs Date Time Temp Pulse Resp B/P (MAP) Pulse Ox O2 Delivery O2 Flow Rate FiO2 05/23/18 08:32 Room Air 05/23/18 07:02 95 05/23/18 05:03 98.9 89 20 124/73 (90) Capillary Refill : General Appearance: No Apparent Distress, WD/WN, Chronically ill Respiratory: Crackles, Decreased Breath Sounds, Wheezing Cardiovascular: Regular Rate, Rhythm, No Edema Neurologic/Psychiatric: Alert, Oriented x3, Normal Mood/Affect, Other ( Disequilibria noted upon standing) Results/Procedures Lab Patient resulted labs reviewed. Assessment/Plan Assessment and Plan Assess & Plan/Chief Complaint Assessment: Status post left cerebellar stroke Status post acute urinary retention consulted urology Acute exacerbation of COPD on nebulized treatments and IV steroids Constipation but declines aggressive bowel regimen Smoker Plan: Monitor for urinary retention Bowel regimen Nebulizer treatments Titrate steroids down Diagnosis/Problems Diagnosis/Problems (1) Acute cerebrovascular accident (CVA) of cerebellum Status: Acute (2) Urinary retention Status: Acute (3) Constipation Status: Acute Qualifiers: Constipation type: slow transit constipation Qualified Codes: K59.01 - Slow transit constipation (4) Smoker Status: Chronic (5) PVD (peripheral vascular disease) Status: Chronic (6) Paresthesia and pain of left extremity Status: Acute (7) COPD (chronic obstructive pulmonary disease) Status: Chronic Qualifiers: COPD type: COPD with acute exacerbation Qualified Codes: J44.1 - Chronic obstructive pulmonary disease with (acute) exacerbation (8) Rales Status: Acute Assessment & Plan: Nebs s/p IV steroids Clinical Quality Measures DVT/VTE Risk/Contraindication: Risk Factor Score Per Nursin RFS Level Per Nursing on Admit: 4+=Very High EVERETTE ULLOA DO May 23, 2018 11:31
--- NOTE | 2018-05-23 11:51 | Progress Note-Urology ---
Progress Note-Urology Progress Notes/Assess & Plan Progress/Assessment & Plan DID NOT VOID YET. NO URGE. Final Diagnosis URINE RETENTION AMAN MORA MD May 23, 2018 11:51 am
--- NOTE | 2018-05-23 11:53 | Physical Therapy Daily Note ---
PT Daily Note-Current Subjective Pt. states he is anxious to get started, really wants to get well and get out of here. "Ill work really hard at everything you ask" C/o dizziness with position change Pain Numeric Pain Scale: 0-No Pain Mental Status Patient Orientation: Normal For Age Transfers Functional [place] Measure 0=Not Assessed/NA 4=Minimal Assistance 1=Total Assistance 5=Supervision or Setup 2=Maximal Assistance 6=Modified [place] 3=Moderate Assistance 7=Complete IndependenceIRFPAI Quality Coding Scale 6 Independent with activity with or without an assistive device 5 Patient requires set up or clean up by helper. Patient completes activity by themselves 4 Supervision or touching assist (CGA). [place] provide cues , steadying assist 3 The helper provides less than half the effort to complete the activity 2 The helper provides more than half the effort to complete the activity 1 Dependent. The helper does all the effort to complete an activity 7 Patient refused to complete or attempt activity 9 The patient did not perform the activity before the current illness or injury 88 Not attempted due to Medical conditions or safety concerns Transfers (B, C, W/C) (FIM): 4 Scootin Rollin Supine to/from Sit: 4 Sit to/from Stand: 4 Bed to/from Chair: 4 Gait Training Does the Patient Walk?: Yes Gait (FIM): 2 Distance (FIM): 8=498-66 ft (80ftx3) Gait Level of Assist: 3 Gait Persons Needed: 1 Gait Assistive Device: FWW instructed pt. in slightly wider THALIA and shorter more equal step length, pt. gives full effort and seemed to have more body and movement awareness. Wheelchair Training Does the Pt Use a Wheelchair?: Yes Wheelchair (FIM): 5 Wheelchair Distance: 3=150 ft Wheelchair Level of Assist: 5 Wheel 50 ft with 2 turns (QC): 5 Wheel 150 ft (QC): 5 Type of Wheelchair: Manual pt. happy to be up ad janet in w/c with family near. Exercises Supine Ex: Bridging, Rolling, Scooting, Straight leg raise, Hip abd/add ( sidelying) Supine Reps: 12 Standing: Hip Abduction, Hamstring curls, Heel/toe raises, Marching, Sit to Stand Standing Reps: 15 Treatments quadruped wt shifting, up on knees for trunk stability and balance challenges. maintained balance but very challenging Assessment Current Status: Good Progress PT Short Term Goals Short Term Goals Time Frame: May 29, 2018 Gait (FIM): 2 Gait Distance Comment: 50' Gait Level of Assist: 4 (min assist) Gait Assistive Device: FWW Wheelchair Distance: 150' PT Skilled Nursing Goals Patrol Police Sergeant Goals PT Skilled Nursing Goals Time Frame: Jun 12, 2018 Transfers (B,C,W/C) (FIM): 4 Sit to Lying (QC): 4 Lying-Sitting on Side/Bed(QC): 4 Sit to Stand (QC): 4 Rollin Roll Left to Right (QC): 4 Chair/[id number]-Qejfg Xfer(QC): 4 Car Transfer (QC): 4 Gait (FIM): 4 Distance: 150' Walk 10 feet (QC): 4 Walk 10ft-Uneven Surface(QC): 4 Walk 50ft with 2 Turns (QC): 4 Walk 150 ft (QC): 4 Gait Level of Assist: 4 Gait Assistive Device: FWW Stairs (FIM): 2 # of Steps: 4 1 Step (curb) (QC): 4 4 Steps (QC): 4 PT Plan Treatment/Plan Treatment Plan: Continue Plan of Care Treatment Plan: Bed Mobility, Concurrent Therapy, Education, Functional Activity Obdulia, Functional Strength, Group Therapy, Gait, Safety, Therapeutic Exercise, Transfers Treatment Duration: Jun 12, 2018 Frequency: At least 5 of 7 days/Wk (IRF) Estimated Hrs Per Day: 1.5 hours per day Patient and/or Family Agrees t: Yes Safety Risks/Education Patient Education: Gait Training, Transfer Techniques, Correct Positioning, Disease Process, Safety Issues Teaching Recipient: Patient, Primary Caregiver Teaching Methods: Discussion Response to Teaching: Verbalize Understanding, Return Demonstration, Reinforcement Needed Time/GCodes Time In: 1055 Time Out: 1130 Total Billed Treatment Time: 35 Total Billed Treatment 1,NM20, GT15m G Codes Necessary: CONNOR Lacey STAFFING SPECIALIST May 23, 2018 11:53
[2018-05-23] MEDS: PANTOPRAZOLE 20 MG TABLET (PROTONIX) PO SCH (12:21)
[2018-05-23] MEDS: ACETAMINOPHEN 500 MG TAB (TYLENOL) PO PRN (12:21)
[2018-05-23] MEDS: FAMOTIDINE 20 MG (PEPCID) TABLET PO SCH (12:21)
[2018-05-23 14:46] VITALS: BP 124/73
[2018-05-23] MEDS: TAMSULOSIN 0.4 MG (FLOMAX) CAP PO SCH (17:17)
[2018-05-23 17:32] VITALS: BP 164/86
[2018-05-23] MEDS: ATORVASTATIN 10 MG (LIPITOR) TABLET PO SCH (20:45)
[2018-05-24] MEDS: RT-ALBUTEROL/IPRATROPIUM 3 ML (DUONEB) VIAL INH SCH ×4 (02:56→20:43)
[2018-05-24] MEDS: HYDROcodone/APAP 5 MG/325 MG (LORTAB) TAB PO PRN (03:16)
[2018-05-24 05:08] VITALS: BP 162/82
[2018-05-24] MEDS: ASPIRIN E.C. 81 MG (ECOTRIN) TAB PO SCH (08:32)
[2018-05-24] MEDS: DOCUSATE SODIUM 100 MG (COLACE) CAP PO SCH ×2 (08:32→20:23)
[2018-05-24] MEDS: CLOPIDOGREL 75 MG (PLAVIX) TABLET PO SCH (08:32)
[2018-05-24] MEDS: LACTULOSE SYRUP 10GM/15ML (ENULOSE) 30ML UDC PO SCH ×2 (08:32→20:23)
[2018-05-24] MEDS: POLYETHYLENE GLYCOL 17 GM (MIRALAX) PACK PO SCH ×3 (08:33→20:20)
[2018-05-24] MEDS: ACETAMINOPHEN 500 MG TAB (TYLENOL) PO PRN (08:45)
--- NOTE | 2018-05-24 08:50 | Progress Note-Urology ---
Progress Note-Urology Progress Notes/Assess & Plan Progress/Assessment & Plan STARTED VOIDING ON OWN BUT NEEDING IC. PLAN CYSTO, SERVANDO AND PSA TOMORROW OR FRIDAY ACCORDING TO OR SCHEDULE Final Diagnosis URINE RETENTION AMAN MORA MD May 24, 2018 8:50 am
[2018-05-24] MEDS: PANTOPRAZOLE 20 MG TABLET (PROTONIX) PO SCH (11:21)
[2018-05-24] MEDS: FAMOTIDINE 20 MG (PEPCID) TABLET PO SCH (11:21)
[2018-05-24] MEDS ORDERED: amLODIPine 5 MG (NORVASC) TAB PO ONE (12:15)
[2018-05-24] MEDS: TAMSULOSIN 0.4 MG (FLOMAX) CAP PO SCH (17:25)
[2018-05-24 17:28] VITALS: BP 139/91
[2018-05-24] MEDS: ATORVASTATIN 10 MG (LIPITOR) TABLET PO SCH (20:22)
[2018-05-25] MEDS: RT-ALBUTEROL/IPRATROPIUM 3 ML (DUONEB) VIAL INH SCH ×4 (02:53→19:07)
[2018-05-25 05:00] VITALS: BP 139/84
[2018-05-25] MEDS ORDERED: LIDOCAINE UROJET 2% GEL 10 ML PKG ONE (07:17)
--- NOTE | 2018-05-25 09:01 | Physical Therapy Daily Note ---
PT Daily Note-Current Subjective Patient sitting EOB pre tx, agrees to PT, no complaints of pain. Patient states he is just exhausted. Appearance Patient sitting EOB post tx with nurse call, phone, tray, all needs met. Mental Status Patient Orientation: Normal For Age Transfers Functional [place] Measure 0=Not Assessed/NA 4=Minimal Assistance 1=Total Assistance 5=Supervision or Setup 2=Maximal Assistance 6=Modified [place] 3=Moderate Assistance 7=Complete IndependenceIRFPAI Quality Coding Scale 6 Independent with activity with or without an assistive device 5 Patient requires set up or clean up by helper. Patient completes activity by themselves 4 Supervision or touching assist (CGA). [place] provide cues , steadying assist 3 The helper provides less than half the effort to complete the activity 2 The helper provides more than half the effort to complete the activity 1 Dependent. The helper does all the effort to complete an activity 7 Patient refused to complete or attempt activity 9 The patient did not perform the activity before the current illness or injury 88 Not attempted due to Medical conditions or safety concerns Transfers (B, C, W/C) (FIM): 4 Sit to/from Stand: 4 Bed to/from Chair: 4 Patient needs min assist for stand pivot transfer and sit to stand. Patient had to use the restroom post tx performed the transfer with min assist, he could not urinate, nurse notified. Gait Training Gait (FIM): 1 Distance: 40'x2, 20' Gait Level of Assist: 3 Gait Assistive Device: FWW Patient needs mod assist for ambulation due to impaired balance and coordination. Wheelchair Training Does the Pt Use a Wheelchair?: Yes Wheelchair (FIM): 6 Distance: 150'x2 Type of Wheelchair: Manual Exercises NuStep Minutes: 15 NuStep Workload: 5 Treatments transfers, ambulation, functional strengthening, patient was toileted Assessment Current Status: Fair Progress improving transfers, patient has better transfers when he takes his time PT Short Term Goals Short Term Goals Time Frame: May 29, 2018 Gait (FIM): 2 Gait Distance Comment: 50' Gait Level of Assist: 4 (min assist) Gait Assistive Device: FWW Wheelchair Distance: 150' PT Half-Way Goals Half-Way Goals PT Cushion Padder Goals Time Frame: Jun 12, 2018 Transfers (B,C,W/C) (FIM): 4 Sit to Lying (QC): 4 Lying-Sitting on Side/Bed(QC): 4 Sit to Stand (QC): 4 Rollin Roll Left to Right (QC): 4 Chair/[place] Xfer(QC): 4 Car Transfer (QC): 4 Gait (FIM): 4 Distance: 150' Walk 10 feet (QC): 4 Walk 10ft-Uneven Surface(QC): 4 Walk 50ft with 2 Turns (QC): 4 Walk 150 ft (QC): 4 Gait Level of Assist: 4 Gait Assistive Device: FWW Stairs (FIM): 2 # of Steps: 4 1 Step (curb) (QC): 4 4 Steps (QC): 4 PT Plan Problem List Problem List: Activity Tolerance, Functional Strength, Safety, Balance, Gait, Transfer, Bed Mobility Treatment/Plan Treatment Plan: Continue Plan of Care Treatment Plan: Bed Mobility, Concurrent Therapy, Education, Functional Activity Obdulia, Functional Strength, Group Therapy, Gait, Safety, Therapeutic Exercise, Transfers Treatment Duration: Jun 12, 2018 Frequency: At least 5 of 7 days/Wk (IRF) Estimated Hrs Per Day: 1.5 hours per day Patient and/or Family Agrees t: Yes Safety Risks/Education Patient Education: Gait Training, Transfer Techniques, Correct Positioning, W/ C Management, Safety Issues Teaching Recipient: Patient Teaching Methods: Demonstration, Discussion Response to Teaching: Reinforcement Needed Time/GCodes Time In: 0800 Time Out: 0900 Total Billed Treatment Time: 60 Total Billed Treatment 1 visit GT 30' EX 15' FA 15' GABY NORMAN PT May 25, 2018 09:01
--- NOTE | 2018-05-25 09:11 | Progress Note-Post Operative ---
Post-Operative Progess Note Surgeon (s)/Content Creation Manager (s) Surgeon AMAN MORA MD Content Creation Manager: N/A Pre-Operative Diagnosis URINE RETENTION Post-Operative Diagnosis SAME Procedure & Operative Findings Date of Procedure 05/25/18 Procedure Performed/Findings CYSTOSCOPY Anesthesia Type LOCAL Estimated Blood Loss Estimated blood loss (mL): N/A Specimens/Packing Specimens Removed N/A Packing: N/A AMAN MORA MD May 25, 2018 09:11
[2018-05-25] MEDS: DOCUSATE SODIUM 100 MG (COLACE) CAP PO SCH ×2 (09:37→21:01)
[2018-05-25] MEDS: POLYETHYLENE GLYCOL 17 GM (MIRALAX) PACK PO SCH ×2 (09:37→21:01)
[2018-05-25] MEDS: LACTULOSE SYRUP 10GM/15ML (ENULOSE) 30ML UDC PO SCH ×2 (09:37→21:01)
[2018-05-25] MEDS: CLOPIDOGREL 75 MG (PLAVIX) TABLET PO SCH (09:37)
[2018-05-25] MEDS: amLODIPine 5 MG (NORVASC) TAB PO SCH (09:38)
[2018-05-25] MEDS: ASPIRIN E.C. 81 MG (ECOTRIN) TAB PO SCH (09:38)
[2018-05-25] MEDS ORDERED: LIDOCAINE UROJET 2% GEL 10 ML PKG TOP NR (11:30)
[2018-05-25] MEDS: PANTOPRAZOLE 20 MG TABLET (PROTONIX) PO SCH (12:41)
[2018-05-25] MEDS: FAMOTIDINE 20 MG (PEPCID) TABLET PO SCH (12:41)
--- NOTE | 2018-05-25 13:34 | Occupational Ther Daily Note ---
OT Current Status-Daily Note Subjective No pain reported. Appearance Pt. is in chair in room. Declines showering, but agrees to work with OT. Pt. already dressed. Mental Status/Objective Patient Orientation: Person, Place, Time, Situation Functional [place] Measure 0=Not Assessed/NA 4=Minimal Assistance 1=Total Assistance 5=Supervision or Setup 2=Maximal Assistance 6=Modified [place] 3=Moderate Assistance 7=Complete [place] ADL-Treatment Functional [place] Measure 0=Not Assessed/NA 4=Minimal Assistance 1=Total Assistance 5=Supervision or Setup 2=Maximal Assistance 6=Modified [place] 3=Moderate Assistance 7=Complete IndependenceIRFPAI Quality Coding Scale 6 Independent with activity with or without an assistive device 5 Patient requires set up or clean up by helper. Patient completes activity by themselves 4 Supervision or touching assist (CGA). [place] provide cues , steadying assist 3 The helper provides less than half the effort to complete the activity 2 The helper provides more than half the effort to complete the activity 1 Dependent. The helper does all the effort to complete an activity 7 Patient refused to complete or attempt activity 9 The patient did not perform the activity before the current illness or injury 88 Not attempted due to Medical conditions or safety concerns Transfers (B, C, W/C) (FIM): 4 (CGA to stand and transfer to right. CGA to stand out of chair at bar and work on weight shifts.) Toilet/Commode Transfer (FIM): 4 Toilet Transfer (QC): 4 Pt. has on tennis shoes and socks. States that he got them on on his own this morning. Pt. up in chair but agreed to work with OT. Stood and transferred to wheelchair with CGA. Self propelled wheelchair to therapy gym. Provided mirror in front of pt. Pt. practiced multiple stands, some with holding onto bar, some with pushing off of chair, and one without holding anything. Without holding anything, pt. lost balance and leaned hard to left side. Pt was able to correct self. Practiced leaning side to side and weight shifting in stance. Pt. then practiced marching in place. States that the left side of his body, including his face is numb. Sat back down and pt. practiced unscrewing nut/ bolts and flipping cards. Practiced doing this for coordination and hand control. Pt. states that he feels like he doesn't have complete control of his left arm, that it "has a mind of its own." Pt's daughter came into gym. Talked about different things that he can work on in his room that will facilitate coordination and hand control in left hand and left side of body in general. Daughter to bring in some items to assist pt. with this. Pt. propelled back to his room. Transferred to toilet with CGA. Pt. states that he will pull the light when he is done. Education OT Patient Education: Correct positioning, Exercise program, Home exercise program, Modified ADL techniques, Progress toward Goal/Update tx plan, Purpose of tx/functional activities, Reviewed precautions, Rehab process, Transfer techniques Teaching Recipient: Patient Teaching Methods: Demonstration, Discussion Response to Teaching: Verbalize Understanding, Return Demonstration OT Short Term Goals Short Term Goals Time Frame: May 29, 2018 Toileting(FIM): 3 Toilet/Commode Transfer(FIM): 4 Additional Short Term Goals: 1-Demonstrate ADL Tasks, 2-Verbalize Understanding , 3-ImproveStrength/Obdulia 1=Demonstrate adherence to instructed precautions during ADL tasks. 2=Patient will verbalize/demonstrate understanding of assistive devices/ modifications for ADL. 3=Patient will improve strength/tolerance for activity to enable patient to perform ADL's. OT Campus Supervisor Goals Campus Supervisor Goals Time Frame: Jun 12, 2018 Eating (FIM): 6 Eating (QC): 6 Groomin Oral Hygiene (QC): 6 Bathing(FIM): 6 Shower/Bathe Self (QC): 6 Upper Body Dressing(FIM): 6 Upper Body Dressing (QC): 6 Lower Body Dressing(FIM): 6 Lower Body Dressing (QC): 6 On/Off Footwear (QC): 6 Toileting(FIM): 6 Toileting Hygiene (QC): 6 Toilet/Commode Transfer(FIM): 6 Toilet/Commode Transfer (QC): 6 Shower Transfer(FIM): 6 Additional Goals: 1-Demonstrate ADL Tasks, 2-Verbalize Understanding, 3- ImproveStrength/Obdulia 1=Demonstrate adherence to instructed precautions during ADL tasks. 2=Patient will verbalize/demonstrate understanding of assistive devices/ modifications for ADL. 3=Patient will improve strength/tolerance for activity to enable patient to perform ADL's. OT Education/Plan Problem List/Assessment Assessment: Decreased Activ Tolerance, Decreased UE Strength, Dependent Transfers, Impaired Coordination, Impaired Funct Balance, Impaired I ADL's, Impaired Self-Care Skills Pt would benefit from skilled OT to ncrease his independence in basic self care to allow him to safely return home Discharge Recommendations Plan/Recommendations: Continue POC Therapy D/C Recommendations: Home w/ Family Support, Occupational Therapy Home Care Comment Equipment needs to be determined. Treatment Plan/Plan of Care Treatment,Training & Education: Yes Patient would benefit from OT for education, treatment and training to promote independence in ADL's, mobility, safety and/or upper extremity function for ADL' s. Plan of Care: ADL Retraining, Functional Mobility, Group Exercise/Act as Ind ( education, exercise, socialization, visual coord, functional activities), UE Funct Exercise/Act, UE Neuromus Re-Ed/Coord, Visual/Perceptual Retrain Treatment Duration: Jun 12, 2018 Frequency: At least 5 of 7 days/Wk (IRF) Estimated Hrs Per Day: 1.5 hours per day Agreement: Yes Rehab Potential: Good Time/GCodes Start Time: 11:32 Stop Time: 12:32 Total Time Billed (hr/min): 60 Billed Treatment Time 1, FA x 4 NAMITA BLANKENSHIP OT May 25, 2018 13:34
--- NOTE | 2018-05-25 14:21 | Therapy Group Daily Note ---
Therapy Daily Group Note Patient Education Topic Other List Below (Orientation to REhab practices and expectations, the importance of activity and exercise) Exercises LE Seated Exercise, UE Exercise Other/Notes Pt. attended group PT OT session this date. Pt. came and went via w/c and required assist for TRFs in out bed etc. Pt. participated well introducing himself and initiating conversation. Pts. all participated in U&L extremity exercises sharing ones they had learned and demonstrating them to others for group exercise. Orientation to rehab was completed as well as 3 hr expectation and schedule etc. Pt. to room after exercise and education. Start Time: 13:00 Stop Time: 14:05 Total Billed Treatment Time: 65 Total Billed Treatment 1,GRP CONNOR CAIN WOMENS VOLLEYBALL COACH May 25, 2018 14:21
[2018-05-25] MEDS: TAMSULOSIN 0.4 MG (FLOMAX) CAP PO SCH (17:16)
[2018-05-25 18:51] VITALS: BP 104/77
[2018-05-25 20:07] VITALS: BP 104/77
[2018-05-25] MEDS: ATORVASTATIN 10 MG (LIPITOR) TABLET PO SCH (21:01)
--- NOTE | 2018-05-25 21:21 | PM & R (SOAP) Progress Note ---
Subjective This was a face to face visit with the patient. Date Seen by Provider: May 25, 2018 Time Seen by Provider: 20:10 Subjective/Events-last exam Patient was seen in his rrom this evening Patient min assist for transfers Discussed case with RN Patient had ccysto with DR max this AM Patient voiding Objective Physician Exam Last Set of Vital Signs Vital Signs Date Time Temp Pulse Resp B/P (MAP) Pulse Ox O2 Delivery O2 Flow Rate FiO2 05/25/18 20:07 80 96 05/25/18 19:07 Room Air 05/25/18 18:51 96.3 18 104/77 (86) 05/23/18 14:46 21 Capillary Refill : I&O Intake and Output 05/25/18 00:00 Intake Total 1280 ml Output Total 2700 ml Balance -1420 ml Intake Oral 1280 ml Output Urine Total 2700 ml Bladder Scan Volume Amount 474 ml 484 ml 294 ml 440 ml General: Alert, Oriented X3, Cooperative, No Acute Distress HEENT: Atraumatic, PERRLA, EOMI, Mucous Memb Moist/[place] Neck: Supple, No JVD Lungs: Clear to Auscultation Heart: Regular Rate Abdomen: Normal Bowel Sounds, Soft, No Tenderness Extremities: No Edema Neuro: Other (Left sided weakness and dyscoordination) Results Lab Data Laboratory Tests 05/24/18 09:20: Prostate Specific Antigen 0.75 Assessment/Plan Assessment and Plan 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
[2018-05-26 05:07] VITALS: BP 124/81
[2018-05-26] MEDS: RT-ALBUTEROL/IPRATROPIUM 3 ML (DUONEB) VIAL INH SCH ×2 (07:40→18:53)
--- NOTE | 2018-05-26 07:42 | OPERATIVE REPORT ---
DATE OF SERVICE: 05/25/2018 PREOPERATIVE DIAGNOSIS: Urinary retention. POSTOPERATIVE DIAGNOSIS: Urinary retention. OPERATION PERFORMED: Cystoscopy. SURGEON: Rolo Mora MD ANESTHESIA: Local. COMPLICATIONS: None. DESCRIPTION OF PROCEDURE: With the patient supine in bed, his genitalia were prepped and draped in the usual sterile fashion. The urethra was infiltrated with lidocaine jelly. Penile clamp was applied. This was then removed and a flexible cystoscope was introduced under vision. Anterior urethra was normal. Prostate was mildly enlarged with mild bladder neck obstruction and mild trabeculations of the bladder. No bladder stone or bladder tumor visualized. Ureteric orifices with clear effluxes. Cystoscopy confirmed an antegrade fashion and the cystoscope was removed. The patient tolerated the procedure and anesthesia well. He remained in his bed in stable condition. PLAN: Continue Flomax. May have to use some Urecholine. We will see about that. He does not need any surgical procedure. I examined him, the phallus has adequate meatus. Testes down the scrotum. Rectal exam - flat, benign, nontender and elastic prostate. We are awaiting the results of the PSA as well. Job ID: [id number] DocumentID: [id number] Dictated Date: 05/25/2018 11:25:41 Abap Developer Date: 05/25/2018 15:27:35 Dictated By: ROLO MORA MD
[2018-05-26] MEDS: amLODIPine 5 MG (NORVASC) TAB PO SCH (08:14)
[2018-05-26] MEDS: ASPIRIN E.C. 81 MG (ECOTRIN) TAB PO SCH (08:14)
[2018-05-26] MEDS: CLOPIDOGREL 75 MG (PLAVIX) TABLET PO SCH (08:14)
[2018-05-26] MEDS: POLYETHYLENE GLYCOL 17 GM (MIRALAX) PACK PO SCH ×2 (08:15→20:27)
[2018-05-26] MEDS: DOCUSATE SODIUM 100 MG (COLACE) CAP PO SCH ×2 (08:15→20:26)
[2018-05-26] MEDS: LACTULOSE SYRUP 10GM/15ML (ENULOSE) 30ML UDC PO SCH ×2 (08:15→20:27)
--- NOTE | 2018-05-26 09:50 | Cardiology Progress Note ---
Subjective Date Seen by Provider: May 26, 2018 Time Seen by Provider: 09:46 Subjective/Events-last exam Patient is sitting in a chair, feeling better, still having some lightheadedness , no chest pain. No syncope. Still unable to get out of chair or bed on his own. Review of Systems General: No Chills, No Night Sweats, No Fatigue, No Malaise, No Appetite, No Other HEENT: No Head Aches, No Visual Changes, No Eye Pain, No Ear Pain, No Dysphasia , No Sinus Congestion, No Post Nasal Drip, No Sore Throat, No Other Pulmonary: No Dyspnea, No Cough, No Pleuritic Chest Pain, No Other Cardiovascular: No: Chest Pain, Palpitations, Orthopnea, Paroxysmal Noc. Dyspnea, Edema, Lt Headedness, Other Objective-Cardiology Exam Last Set of Vital Signs Vital Signs 05/23/18 05/26/18 05/26/18 05/26/18 14:46 05:07 07:40 09:00 Temp 97.5 Pulse 100 Resp 18 B/P (MAP) 124/81 (95) Pulse Ox 96 O2 Delivery Room Air FiO2 21 Capillary Refill : I&O Intake and Output 05/26/18 00:00 Intake Total 1560 ml Output Total 1750 ml Balance -190 ml Intake Oral 1560 ml Output Urine Total 1750 ml # Bowel Movements 2 General: Alert, Oriented X3, Cooperative, No Acute Distress HEENT: Atraumatic, PERRLA, EOMI, Mucous Memb Moist/[place] Neck: Supple, No JVD Lungs: Clear to Auscultation Heart: Regular Rate, Normal S1, Normal S2 Abdomen: Normal Bowel Sounds, Soft, No Tenderness Extremities: No Clubbing, No Cyanosis, No Edema Neuro: Other (Left sided weakness and dyscoordination) A/P-Cardiology Admission Diagnosis CVA Hypertension Hyperlipidemia Gastroesophageal reflux disease Assessment/Plan Status post acute CVA, left sided weakness, improving. Occlusion of the vertebral artery, receiving physical therapy at this time. Still having some lightheadedness and residual weakness. Managed by primary care team Hypertension, continue to monitor blood pressure, no changes are recommended Hyperlipidemia, LDL 113, started on Lipitor, continue to monitor Urinary retention, status post cystoscopy, managed by Dr. Whaley COPD, emphysema, managed by primary care physician Tobaccoism, encouraged to continue with smoking cessation Gastroesophageal reflux disease Clinical Quality Measures DVT/VTE Risk/Contraindication: Risk Factor Score Per Nursin RFS Level Per Nursing on Admit: 4+=Very High CHERRY DAILEY MD May 26, 2018 09:50
--- NOTE | 2018-05-26 10:32 | Progress Note-Urology ---
Progress Note-Urology Progress Notes/Assess & Plan Progress/Assessment & Plan VOIDING ON OWN. FEELS EMPTYING. CHECK BLADDER SCAN PVR TODAY Final Diagnosis URINE RETENTION AMAN MORA MD May 26, 2018 10:32 am
--- NOTE | 2018-05-26 11:15 | Physical Therapy Daily Note ---
PT Daily Note-Current Subjective Pt sitting in [facility] in room upon arrival. Pt agrees to PT for work on balance especially with standing/walking. Pain Location: No Pain Reported Comment: Pt reports feeling sensation returning on L side of face. Mental Status Patient Orientation: Person, Place, Time, Situation Transfers Functional [place] Measure 0=Not Assessed/NA 4=Minimal Assistance 1=Total Assistance 5=Supervision or Setup 2=Maximal Assistance 6=Modified [place] 3=Moderate Assistance 7=Complete IndependenceIRFPAI Quality Coding Scale 6 Independent with activity with or without an assistive device 5 Patient requires set up or clean up by helper. Patient completes activity by themselves 4 Supervision or touching assist (CGA). [place] provide cues , steadying assist 3 The helper provides less than half the effort to complete the activity 2 The helper provides more than half the effort to complete the activity 1 Dependent. The helper does all the effort to complete an activity 7 Patient refused to complete or attempt activity 9 The patient did not perform the activity before the current illness or injury 88 Not attempted due to Medical conditions or safety concerns Scootin Sit to/from Stand: 5 Sit to Stand (QC): 5 Car Transfer (QC): 5 Weight Bearing Right Lower Extremity: Right Full Weight Bearing Left Lower Extremity: Left Full Weight Bearing Gait Training Does the Patient Walk?: Yes Distance (FIM): 1=up to 49 ft Distance: 30' Walk 10 feet (QC): 3 Gait Level of Assist: 3 Gait Persons Needed: 1 Gait Assistive Device: FWW Pt leans to L side significantly. Pt recognizes it but has difficulty overcoming weakness to correct. Pt fatigues easily. Wheelchair Training Does the Pt Use a Wheelchair?: Yes Wheelchair Distance: 3=150 ft Distance: 250' Wheelchair Level of Assist: 6 Wheel 50 ft with 2 turns (QC): 6 Wheel 150 ft (QC): 6 Type of Wheelchair: Manual Exercises NuStep Minutes: 15 NuStep Workload: 5 Treatments Pt propels WCH in hallway at Mod I. Pt uses NuStep for 15m at WL 5 followed by ambulation in Therapy Gym using FWW at Mod A for balance. After resting, pt propels WCH in Therapy Commons, including figure eights to test mobility & endurance. Pt returns to room to use restroom & rest. Pt has all needs met at end of tx, including call light next to pt. Assessment Current Status: Good Progress Pt is getting stronger and making gains with transfers and mobility both with WCH & walking. PT Short Term Goals Short Term Goals Time Frame: May 29, 2018 Gait (FIM): 2 Gait Distance Comment: 50' Gait Level of Assist: 4 (min assist) Gait Assistive Device: FWW Wheelchair Distance: 150'x2 PT Electric Stove Installer Goals Halfway Goals PT Halfway Goals Time Frame: Jun 12, 2018 Transfers (B,C,W/C) (FIM): 4 Sit to Lying (QC): 4 Lying-Sitting on Side/Bed(QC): 4 Sit to Stand (QC): 4 Rollin Roll Left to Right (QC): 4 Chair/Ije-du-Cmwnz Xfer(QC): 4 Car Transfer (QC): 4 Gait (FIM): 4 Distance: 150' Walk 10 feet (QC): 4 Walk 10ft-Uneven Surface(QC): 4 Walk 50ft with 2 Turns (QC): 4 Walk 150 ft (QC): 4 Gait Level of Assist: 4 Gait Assistive Device: FWW Stairs (FIM): 2 # of Steps: 4 1 Step (curb) (QC): 4 4 Steps (QC): 4 PT Plan Problem List Problem List: Activity Tolerance, Functional Strength, Safety, Balance, Gait Treatment/Plan Treatment Plan: Continue Plan of Care Treatment Plan: Bed Mobility, Concurrent Therapy, Education, Functional Activity Obdulia, Functional Strength, Group Therapy, Gait, Safety, Therapeutic Exercise, Transfers Treatment Duration: Jun 12, 2018 Frequency: At least 5 of 7 days/Wk (IRF) Estimated Hrs Per Day: 1.5 hours per day Patient and/or Family Agrees t: Yes Safety Risks/Education Patient Education: Gait Training, Correct Positioning, Safety Issues Teaching Recipient: Patient Teaching Methods: Discussion Response to Teaching: Verbalize Understanding Time/GCodes Time In: 900 Time Out: 1000 Total Billed Treatment Time: 60 Total Billed Treatment 1,WCH (15m), EX (15m), GT (15m) & FA (15m) G Codes Necessary: DALLAS Gusman LEAD RAMP SERVICE MAN May 26, 2018 11:15
--- NOTE | 2018-05-26 12:11 | Occupational Ther Daily Note ---
OT Current Status-Daily Note Subjective No pain reported. Appearance Pt. up in chair. Agrees to work with OT. Mental Status/Objective Patient Orientation: Person, Place, Time, Situation Functional [place] Measure 0=Not Assessed/NA 4=Minimal Assistance 1=Total Assistance 5=Supervision or Setup 2=Maximal Assistance 6=Modified [place] 3=Moderate Assistance 7=Complete [place] ADL-Treatment Functional [place] Measure 0=Not Assessed/NA 4=Minimal Assistance 1=Total Assistance 5=Supervision or Setup 2=Maximal Assistance 6=Modified [place] 3=Moderate Assistance 7=Complete IndependenceIRFPAI Quality Coding Scale 6 Independent with activity with or without an assistive device 5 Patient requires set up or clean up by helper. Patient completes activity by themselves 4 Supervision or touching assist (CGA). [place] provide cues , steadying assist 3 The helper provides less than half the effort to complete the activity 2 The helper provides more than half the effort to complete the activity 1 Dependent. The helper does all the effort to complete an activity 7 Patient refused to complete or attempt activity 9 The patient did not perform the activity before the current illness or injury 88 Not attempted due to Medical conditions or safety concerns Grooming (FIM): 6 (Mod I at wheelchair level.) Oral Hygiene (QC): 6 Bathing (FIM): 6 Shower/Bathe Self (QC): 6 Upper Body (FIM): 5 (set up) Upper Body Dressing (QC): 5 Lower Body Dressing (FIM): 5 Lower Body Dressing (QC): 5 On/Off Footwear (QC): 5 Toileting (FIM): 6 Toileting Hygiene (QC): 6 Transfers (B, C, W/C) (FIM): 6 (Mod I to transfer from bed-wheelchair, and wheelchair to toilet and shower.) Toilet/Commode Transfer (FIM): 6 Toilet Transfer (QC): 6 Shower Transfer(FIM): 6 Other Treatment Pt. transferred to and from surfaces in room, and then in gym with Mod I. Pt. has been cleared to transfer on his own in his room to toilet and transfer to wheelchair. Pt. instructed to not attempt to walk on his own, and pt. verbalizes understanding. Spoke with PT and nursing about this. After ADLs, pt. self propelled to gym. Completed 10 minutes on armbike at mod resistance to increase overall strength. Pt. states that his left UE feels weak, and does require several rest breaks with it. All needs met back in room. Education OT Patient Education: Correct positioning, Exercise program, Modified ADL techniques, Progress toward Goal/Update tx plan, Purpose of tx/functional activities, Reviewed precautions, Rehab process, Transfer techniques Teaching Recipient: Patient Teaching Methods: Demonstration, Discussion Response to Teaching: Verbalize Understanding, Return Demonstration OT Short Term Goals Short Term Goals Time Frame: May 29, 2018 Toileting(FIM): 3 Toilet/Commode Transfer(FIM): 4 Additional Short Term Goals: 1-Demonstrate ADL Tasks, 2-Verbalize Understanding , 3-ImproveStrength/Obdulia 1=Demonstrate adherence to instructed precautions during ADL tasks. 2=Patient will verbalize/demonstrate understanding of assistive devices/ modifications for ADL. 3=Patient will improve strength/tolerance for activity to enable patient to perform ADL's. OT Halfway Goals Halfway Goals Time Frame: Jun 12, 2018 Eating (FIM): 6 Eating (QC): 6 Groomin Oral Hygiene (QC): 6 Bathing(FIM): 6 Shower/Bathe Self (QC): 6 Upper Body Dressing(FIM): 6 Upper Body Dressing (QC): 6 Lower Body Dressing(FIM): 6 Lower Body Dressing (QC): 6 On/Off Footwear (QC): 6 Toileting(FIM): 6 Toileting Hygiene (QC): 6 Toilet/Commode Transfer(FIM): 6 Toilet/Commode Transfer (QC): 6 Shower Transfer(FIM): 6 Additional Goals: 1-Demonstrate ADL Tasks, 2-Verbalize Understanding, 3- ImproveStrength/Obdulia 1=Demonstrate adherence to instructed precautions during ADL tasks. 2=Patient will verbalize/demonstrate understanding of assistive devices/ modifications for ADL. 3=Patient will improve strength/tolerance for activity to enable patient to perform ADL's. OT Education/Plan Problem List/Assessment Assessment: Decreased Activ Tolerance, Decreased UE Strength, Dependent Transfers, Impaired Coordination, Impaired Funct Balance, Impaired I ADL's, Impaired Self-Care Skills Pt would benefit from skilled OT to ncrease his independence in basic self care to allow him to safely return home Discharge Recommendations Plan/Recommendations: Continue POC Therapy D/C Recommendations: Home w/ Family Support, Occupational Therapy Home Care Treatment Plan/Plan of Care Treatment,Training & Education: Yes Patient would benefit from OT for education, treatment and training to promote independence in ADL's, mobility, safety and/or upper extremity function for ADL' s. Plan of Care: ADL Retraining, Functional Mobility, Group Exercise/Act as Ind ( education, exercise, socialization, visual coord, functional activities), UE Funct Exercise/Act, UE Neuromus Re-Ed/Coord, Visual/Perceptual Retrain Treatment Duration: Jun 12, 2018 Frequency: At least 5 of 7 days/Wk (IRF) Estimated Hrs Per Day: 1.5 hours per day Agreement: Yes Rehab Potential: Good Time/GCodes Start Time: 10:00 Stop Time: 11:00 Total Time Billed (hr/min): 60 Billed Treatment Time 1, ADL x 45minutes, Ex x 15minutes NAMITA BLANKENSHIP OT May 26, 2018 12:11
[2018-05-26] MEDS: PANTOPRAZOLE 20 MG TABLET (PROTONIX) PO SCH (12:56)
[2018-05-26] MEDS: FAMOTIDINE 20 MG (PEPCID) TABLET PO SCH (12:56)
--- NOTE | 2018-05-26 14:20 | Occupational Ther Daily Note ---
OT Current Status-Daily Note Subjective No pain reported. Appearance Pt. up in wheelchair. Agrees to work with OT. Daughter in room. Mental Status/Objective Patient Orientation: Person, Place, Time, Situation Functional [place] Measure 0=Not Assessed/NA 4=Minimal Assistance 1=Total Assistance 5=Supervision or Setup 2=Maximal Assistance 6=Modified [place] 3=Moderate Assistance 7=Complete [place] ADL-Treatment Functional [place] Measure 0=Not Assessed/NA 4=Minimal Assistance 1=Total Assistance 5=Supervision or Setup 2=Maximal Assistance 6=Modified [place] 3=Moderate Assistance 7=Complete IndependenceIRFPAI Quality Coding Scale 6 Independent with activity with or without an assistive device 5 Patient requires set up or clean up by helper. Patient completes activity by themselves 4 Supervision or touching assist (CGA). [place] provide cues , steadying assist 3 The helper provides less than half the effort to complete the activity 2 The helper provides more than half the effort to complete the activity 1 Dependent. The helper does all the effort to complete an activity 7 Patient refused to complete or attempt activity 9 The patient did not perform the activity before the current illness or injury 88 Not attempted due to Medical conditions or safety concerns Transfers (B, C, W/C) (FIM): 6 (Mod I to stand and pivot to chair. Pt. requires increased time with this task.) Other Treatment Pt. has questions regarding work and what he is going to do after rehab. Pt. is deferred to social work. Pt. agrees to self propel to therapy gym. Completed bilateral coordination task with catching and throwing large ball back and forth. Pt. able to do this with no difficulty. Pt. and OT then worked on tossing ball back and forth between hands for coordination. Pt. able to do this, but fatigued quickly. Transferred to mat and worked on vestibular activities/balance activities with leaning forward at hips and side-lying on both sides. Required increased time to complete this but states that he is able to do it without being dizzy, which has been the case. Pt. went back into room to speak with social welfare administrator. All needs met. Education OT Patient Education: Correct positioning, Exercise program, Progress toward Goal/Update tx plan, Purpose of tx/functional activities, Reviewed precautions, Rehab process, Transfer techniques Teaching Recipient: Patient Teaching Methods: Demonstration, Discussion Response to Teaching: Verbalize Understanding, Return Demonstration OT Short Term Goals Short Term Goals Time Frame: May 29, 2018 Toileting(FIM): 3 Toilet/Commode Transfer(FIM): 4 Additional Short Term Goals: 1-Demonstrate ADL Tasks, 2-Verbalize Understanding , 3-ImproveStrength/Obdulia 1=Demonstrate adherence to instructed precautions during ADL tasks. 2=Patient will verbalize/demonstrate understanding of assistive devices/ modifications for ADL. 3=Patient will improve strength/tolerance for activity to enable patient to perform ADL's. OT Spanish Lecturer Goals Spanish Lecturer Goals Time Frame: Jun 12, 2018 Eating (FIM): 6 Eating (QC): 6 Groomin Oral Hygiene (QC): 6 Bathing(FIM): 6 Shower/Bathe Self (QC): 6 Upper Body Dressing(FIM): 6 Upper Body Dressing (QC): 6 Lower Body Dressing(FIM): 6 Lower Body Dressing (QC): 6 On/Off Footwear (QC): 6 Toileting(FIM): 6 Toileting Hygiene (QC): 6 Toilet/Commode Transfer(FIM): 6 Toilet/Commode Transfer (QC): 6 Shower Transfer(FIM): 6 Additional Goals: 1-Demonstrate ADL Tasks, 2-Verbalize Understanding, 3- ImproveStrength/Obdulia 1=Demonstrate adherence to instructed precautions during ADL tasks. 2=Patient will verbalize/demonstrate understanding of assistive devices/ modifications for ADL. 3=Patient will improve strength/tolerance for activity to enable patient to perform ADL's. OT Education/Plan Problem List/Assessment Assessment: Decreased Activ Tolerance, Impaired Funct Balance, Impaired I ADL's , Impaired Self-Care Skills Pt would benefit from skilled OT to ncrease his independence in basic self care to allow him to safely return home Discharge Recommendations Plan/Recommendations: Continue POC Therapy D/C Recommendations: Home w/ Family Support, Occupational Therapy Home Care, Scheduled Assistance Treatment Plan/Plan of Care Treatment,Training & Education: Yes Patient would benefit from OT for education, treatment and training to promote independence in ADL's, mobility, safety and/or upper extremity function for ADL' s. Plan of Care: ADL Retraining, Functional Mobility, Group Exercise/Act as Ind ( education, exercise, socialization, visual coord, functional activities), UE Funct Exercise/Act, UE Neuromus Re-Ed/Coord, Visual/Perceptual Retrain Treatment Duration: Jun 12, 2018 Frequency: At least 5 of 7 days/Wk (IRF) Estimated Hrs Per Day: 1.5 hours per day Agreement: Yes Rehab Potential: Good Time/GCodes Start Time: 13:30 Stop Time: 14:00 Total Time Billed (hr/min): 30 Billed Treatment Time 1, ADL x 15minutes, FA x 15minutes NAMITA BLANKENSHIP OT May 26, 2018 14:20
--- NOTE | 2018-05-26 14:32 | Physical Therapy Daily Note ---
PT Daily Note-Current Subjective Pt sitting in [facility] upon arrival. Pt agrees to PT. Pain Location: No Pain Reported Mental Status Patient Orientation: Person, Place, Time, Situation Transfers Functional [place] Measure 0=Not Assessed/NA 4=Minimal Assistance 1=Total Assistance 5=Supervision or Setup 2=Maximal Assistance 6=Modified [place] 3=Moderate Assistance 7=Complete IndependenceIRFPAI Quality Coding Scale 6 Independent with activity with or without an assistive device 5 Patient requires set up or clean up by helper. Patient completes activity by themselves 4 Supervision or touching assist (CGA). [place] provide cues , steadying assist 3 The helper provides less than half the effort to complete the activity 2 The helper provides more than half the effort to complete the activity 1 Dependent. The helper does all the effort to complete an activity 7 Patient refused to complete or attempt activity 9 The patient did not perform the activity before the current illness or injury 88 Not attempted due to Medical conditions or safety concerns Rollin Roll Left to Right (QC): 5 Sit to/from Stand: 5 Sit to Stand (QC): 5 Weight Bearing Right Lower Extremity: Right Full Weight Bearing Left Lower Extremity: Left Full Weight Bearing Gait Training Does the Patient Walk?: Yes Distance (FIM): 8=854-56 ft Distance: 60' Walk 10 feet (QC): 3 Walk 50 ft with 2 Turns(QC): 3 Gait Level of Assist: 3 Gait Persons Needed: 1 Gait Assistive Device: FWW Pt leans significantly to L side while ambulating. Pt recognizes but has difficulty overcome to correct. Pt is requiring less assistance with transfers and ambulation. Wheelchair Training Does the Pt Use a Wheelchair?: Yes Wheelchair Distance: 3=150 ft Distance: 150' Wheelchair Level of Assist: 6 Wheel 50 ft with 2 turns (QC): 6 Wheel 150 ft (QC): 6 Type of Wheelchair: Manual Exercises Seated Therapy Exercises: Ankle pumps, Long arc quads, Hip flexion, Kicking activity Seated Reps: 15 (LLE with 2# kle weight) Treatments Pt propels [facility] to Therapy Gym. Pt ambulates using FWW at Mod A in Therapy Gym x2. Pt rests in between each ambulation. Pt completes Seated Ex in [facility] w/2# ankle weight. Pt propels [facility] back to room to rest. Pt has all needs met at end of tx including call light. OT arrives. PT Short Term Goals Short Term Goals Time Frame: May 29, 2018 Gait (FIM): 2 Gait Distance Comment: 50' Gait Level of Assist: 4 (min assist) Gait Assistive Device: FWW Wheelchair Distance: 150'x2 PT Senior Care Goals Pigment Furnace Tender Goals PT Pigment Furnace Tender Goals Time Frame: Jun 12, 2018 Transfers (B,C,W/C) (FIM): 4 Sit to Lying (QC): 4 Lying-Sitting on Side/Bed(QC): 4 Sit to Stand (QC): 4 Rollin Roll Left to Right (QC): 4 Chair/Jod-cz-Qfwlh Xfer(QC): 4 Car Transfer (QC): 4 Gait (FIM): 4 Distance: 150' Walk 10 feet (QC): 4 Walk 10ft-Uneven Surface(QC): 4 Walk 50ft with 2 Turns (QC): 4 Walk 150 ft (QC): 4 Gait Level of Assist: 4 Gait Assistive Device: FWW Stairs (FIM): 2 # of Steps: 4 1 Step (curb) (QC): 4 4 Steps (QC): 4 PT Plan Problem List Problem List: Activity Tolerance, Functional Strength, Safety, Balance, Gait Treatment/Plan Treatment Plan: Continue Plan of Care Treatment Plan: Bed Mobility, Concurrent Therapy, Education, Functional Activity Obdulia, Functional Strength, Group Therapy, Gait, Safety, Therapeutic Exercise, Transfers Treatment Duration: Jun 12, 2018 Frequency: At least 5 of 7 days/Wk (IRF) Estimated Hrs Per Day: 1.5 hours per day Patient and/or Family Agrees t: Yes Safety Risks/Education Patient Education: Gait Training, Correct Positioning, Safety Issues Teaching Recipient: Patient Teaching Methods: Discussion Response to Teaching: Verbalize Understanding Time/GCodes Time In: 1300 Time Out: 1330 Total Billed Treatment Time: 30 Total Billed Treatment 1, GT (15m) & EX (15m) G Codes Necessary: [place] Gusman TITLE ONE READING TEACHER May 26, 2018 14:32
--- NOTE | 2018-05-26 15:00 | PM & R (SOAP) Progress Note ---
Subjective This was a face to face visit with the patient. Date Seen by Provider: May 26, 2018 Time Seen by Provider: 07:50 Subjective/Events-last exam Patient was seen in his room this AM Patient SBA for transfers,Mod assist for gait with walker due to leaning and gait imbalance Coordination and strength much improved on left Objective Physician Exam Last Set of Vital Signs Vital Signs Date Time Temp Pulse Resp B/P (MAP) Pulse Ox O2 Delivery O2 Flow Rate FiO2 05/26/18 09:00 Room Air 05/26/18 07:40 96 05/26/18 05:07 97.5 100 18 124/81 (95) 05/23/18 14:46 21 Capillary Refill : I&O Intake and Output 05/26/18 00:00 Intake Total 1560 ml Output Total 1750 ml Balance -190 ml Intake Oral 1560 ml Output Urine Total 1750 ml # Bowel Movements 2 General: Alert, Oriented X3, Cooperative, No Acute Distress HEENT: Atraumatic, PERRLA, EOMI, Mucous Memb Moist/[place] Neck: Supple, No JVD Lungs: Clear to Auscultation Heart: Regular Rate, Normal S1, Normal S2 Abdomen: Normal Bowel Sounds, Soft, No Tenderness Extremities: No Clubbing, No Cyanosis, No Edema Neuro: Other (Left sided weakness and dyscoordination) Results Lab Data Laboratory Tests 05/24/18 09:20: Prostate Specific Antigen 0.75 Assessment/Plan Assessment and Plan Left ischemic cerebeelar stroke with dyscoordination and weakness on left much improved COPD Tobaccoism Occlusion of left vertebral artery Urinary retention improved s/p cysto Gerd on protonix Plan Continue PT/OT Team Conference tomorrow (1) Cerebellar stroke Status: Acute Co-Morbidities that are continuing to impact the rehab process: (include details ) CELENA LOYOLA MD May 26, 2018 15:00
--- NOTE | 2018-05-26 16:14 | Individualized Plan of Care ---
Individualized Plan of Care Rehab Nursing IPOC Order Admission Date May 22, 2018 at 14:34 Current Orders Orders Pt Evaluate/Treat Request (05/22/18 13:35) Request Ot Evaluate & Treat (05/22/18 13:35) Request For Cognitive Services (05/22/18 13:35) Admission Order(Inpt,Obs,Sdc) (05/22/18 14:34) Admission Arrival Bed Request (05/22/18 14:34) Vital Signs: Routine (Order) 08,16,00 (05/22/18 14:33) Sequential Compression Device 08,20 (05/22/18 14:33) Outsewer-Inpt Rehab Con (05/22/18 14:33) Rehab Nursing Orders-Ipoc (05/22/18 14:33) General/Regular (05/22/18 Dinner) Turn And Reposition Q2HR (05/22/18 14:33) Intake & Output 06,14,22 (05/22/18 14:33) Weekly Weight (Lbs) WEEK (05/22/18 14:33) Consult Physician (05/22/18 14:33) Code/Resuscitation (05/22/18 14:39) Acetaminophen Tablet (Tylenol Tablet) (05/22/18 14:45) Albuterol/Ipra Inhalation Soln (Duoneb I (05/22/18 14:45) Aspirin Enteric Coated Tablet (Ecotrin T (05/23/18 09:00) Atorvastatin Tablet (Lipitor Tablet) (05/22/18 21:00) Calcium Carbonate Chew Tablet (Antacid C (05/22/18 14:45) Clopidogrel Tablet (Plavix Tablet) (05/23/18 09:00) Docusate Sodium Capsule (Colace Capsule) (05/22/18 21:00) Famotidine Tablet (Pepcid Tablet) (05/23/18 12:00) Hydrocodone/Apap 5/325 Tablet (Lortab 5 (05/22/18 14:45) Lactulose Oral Solution (Enulose Oral So (05/22/18 21:00) Pantoprazole Tablet (Protonix Tablet) (05/23/18 12:00) Polyethylene Glycol Powder Pkt (Miralax (05/22/18 21:00) Tamsulosin Capsule (Flomax Capsule) (05/22/18 18:00) Patient Visit (05/22/18 ) Speech Sound Lang Comp (05/22/18 ) Albuterol/Ipra Inhalation Soln (Duoneb I (05/22/18 21:00) Consult Cardiology (05/22/18 15:13) Consult Urology (05/22/18 15:13) Nursing Communication (Order) (05/22/18 15:13) Patient Visit (05/22/18 ) Pt Eval Moderate Complexity (05/22/18 ) Functional Activities, Ea 15 (05/22/18 ) Catheter(Urinary) Discontinue (05/22/18 15:51) Nursing Communication (Order) (05/22/18 15:55) Patient Visit (05/23/18 ) Ex Neuromuscular, Ea 15 Min (05/23/18 ) Gait Training, Ea 15 Min (05/23/18 ) Bladder Scan (05/23/18 13:53) Straight Cath (Urinary) (05/23/18 13:53) Psa Screen (05/24/18 08:50) Consent-Obtain Consent For (05/24/18 08:50) Atorvastatin Tablet (Lipitor Tablet) (05/24/18 21:00) Amlodipine Tablet (Norvasc Tablet) (05/24/18 12:15) Amlodipine Tablet (Norvasc Tablet) (05/25/18 09:00) Lidocaine 2% (Urojet) (Xylocaine Urojet) (05/25/18 07:17) Lidocaine 2% (Urojet) (Xylocaine Urojet) (05/25/18 11:30) Patient Visit (05/25/18 ) Gait Training, Ea 15 Min (05/25/18 ) Functional Activities, Ea 15 (05/25/18 ) Exercise Therap, Ea 15 Min (05/25/18 ) Patient Visit (05/25/18 ) Therapeutic, Group (05/25/18 ) Albuterol/Ipra Inhalation Soln (Duoneb I (05/26/18 09:00) Mat Initiate Protocol (05/25/18 20:11) Bladder Scan (05/26/18 10:32) Patient Visit (05/26/18 ) Wheelchair Mgmt/Propulsn 15min (05/26/18 ) Exercise Therap, Ea 15 Min (05/26/18 ) Gait Training, Ea 15 Min (05/26/18 ) Functional Activities, Ea 15 (05/26/18 ) Rehab Nursing Orders: Ongoing Assess. of Cognitive Status, Ongoing Assess. of Function Status, Disease Management & Educaiton, DVT Prophylaxis, Fall Prevention, Fluid/Electrolyte/Nutrition Mgmt, Infection Prevention, Medication Management & Education, Management of Risks & Complications, Management of Skin Intergrity, Nutrition Management, Pain Management, Patient/Family Support, Safety Management Other Nursing Orders: Monitor for urinary retention s/p cysto and constipation PT IPOC Problem List: Activity Tolerance, Functional Strength, Safety, Balance, Gait Treatment Plan: Continue Plan of Care Bed Mobility, Concurrent Therapy, Education, Functional Activity Obdulia, Functional Strength, Group Therapy, Gait, Safety, Therapeutic Exercise, Transfers Treatment Duration: Jun 12, 2018 Frequency: At least 5 of 7 days/Wk (IRF) Estimated Hrs Per Day: 1.5 hours per day OT IPOC Problems: Decreased Activ Tolerance, Impaired Funct Balance, Impaired I ADL's, Impaired Self-Care Skills OT Treatment, Training and Edu: Yes OT Problems Pt would benefit from skilled OT to ncrease his independence in basic self care to allow him to safely return home Plan of Care: ADL Retraining, Functional Mobility, Group Exercise/Act as Ind ( education, exercise, socialization, visual coord, functional activities), UE Funct Exercise/Act, UE Neuromus Re-Ed/Coord, Visual/Perceptual Retrain Treatment Duration: Jun 12, 2018 Frequency: At least 5 of 7 days/Wk (IRF) Estimated Hrs Per Day: 1.[address] IPOC Speech Therapy Treatment Plan: Discontinue ST Treatment Duration: May 26, 2018 Frequency: Modified Program (IRF) (No ST warranted.) Estimated Hrs Per Day: Other (No ST warranted.) Outsewer/Case Mgmt Outsewer/Case Managemen: Discharge Planning, Patient/Family Counseling Dietitian/Electrophonic Engineer Dietitian/Electrophonic Engineer to monitor nutritional status and make changes and/or recommendations as needed and work with speech pathology on dietary upgrades as the occur. 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
[2018-05-26] MEDS: TAMSULOSIN 0.4 MG (FLOMAX) CAP PO SCH (18:05)
[2018-05-26 18:10] VITALS: BP 157/79
[2018-05-26] MEDS: ATORVASTATIN 10 MG (LIPITOR) TABLET PO SCH (20:27)
[2018-05-27 05:04] VITALS: BP 120/80
--- NOTE | 2018-05-27 06:58 | Progress Note-Urology ---
Progress Note-Urology Progress Notes/Assess & Plan Progress/Assessment & Plan VOIDING WELL BUT PVR 218, WILL RECHECK TODAY. PSA 0.75 Final Diagnosis URINE RETENTION (IMPROVED) AMAN MORA MD May 27, 2018 6:58 am
[2018-05-27] MEDS: RT-ALBUTEROL/IPRATROPIUM 3 ML (DUONEB) VIAL INH SCH ×2 (07:29→19:58)
[2018-05-27] MEDS: ASPIRIN E.C. 81 MG (ECOTRIN) TAB PO SCH (08:02)
[2018-05-27] MEDS: amLODIPine 5 MG (NORVASC) TAB PO SCH (08:02)
[2018-05-27] MEDS: DOCUSATE SODIUM 100 MG (COLACE) CAP PO SCH ×2 (08:02→20:57)
[2018-05-27] MEDS: CLOPIDOGREL 75 MG (PLAVIX) TABLET PO SCH (08:02)
[2018-05-27] MEDS: LACTULOSE SYRUP 10GM/15ML (ENULOSE) 30ML UDC PO SCH ×2 (08:02→20:57)
[2018-05-27] MEDS: POLYETHYLENE GLYCOL 17 GM (MIRALAX) PACK PO SCH ×2 (08:02→20:58)
--- NOTE | 2018-05-27 09:23 | PM & R (SOAP) Progress Note ---
Subjective This was a face to face visit with the patient. Date Seen by Provider: May 27, 2018 Time Seen by Provider: 07:55 Subjective/Events-last exam Patient was seen in his room this AM Patient SBA for transfers Objective Physician Exam Last Set of Vital Signs Vital Signs Date Time Temp Pulse Resp B/P (MAP) Pulse Ox O2 Delivery O2 Flow Rate FiO2 05/27/18 07:31 95 Room Air 05/27/18 05:04 98.2 98 16 120/80 (93) 05/23/18 14:46 21 Capillary Refill : I&O Intake and Output 05/27/18 00:00 Intake Total 400 ml Balance 400 ml Intake Oral 400 ml Bladder Scan Volume Amount 218 ml 218 ml # Voids 3 # Bowel Movements 2 General: Alert, Oriented X3, Cooperative, No Acute Distress HEENT: Atraumatic, PERRLA, EOMI, Mucous Memb Moist/[place] Neck: Supple, No JVD Lungs: Clear to Auscultation Heart: Regular Rate, Normal S1, Normal S2 Abdomen: Normal Bowel Sounds, Soft, No Tenderness Extremities: No Clubbing, No Cyanosis, No Edema Neuro: Other (Left sided weakness and dyscoordination) Assessment/Plan Assessment and Plan left ischemic cerebellar stroke with dyscoordination and left sided weakness improving COPD Tobaccoism Occlusion of left vertebral artery Urinary retention improved s/p cccccccccysto GERD on protonix Plan Continue PT/OT Team Conference later today-see report for full functional update and POC and ELOS (1) Cerebellar stroke Status: Acute Co-Morbidities that are continuing to impact the rehab process: (include details ) CELENA LOYOLA MD May 27, 2018 09:23
--- NOTE | 2018-05-27 09:57 | Physical Therapy Daily Note ---
PT Daily Note-Current Subjective Pt sitting in [facility] in room upon arrival. Pt agrees to PT and is very motivated to get better & take care of himself at home while family is working. Pain Numeric Pain Scale: 3 Location: Left Location Body Site: Hip Pain Description: Ache, Tightness Mental Status Patient Orientation: Person, Place, Time, Situation Transfers Functional [place] Measure 0=Not Assessed/NA 4=Minimal Assistance 1=Total Assistance 5=Supervision or Setup 2=Maximal Assistance 6=Modified [place] 3=Moderate Assistance 7=Complete IndependenceIRFPAI Quality Coding Scale 6 Independent with activity with or without an assistive device 5 Patient requires set up or clean up by helper. Patient completes activity by themselves 4 Supervision or touching assist (CGA). [place] provide cues , steadying assist 3 The helper provides less than half the effort to complete the activity 2 The helper provides more than half the effort to complete the activity 1 Dependent. The helper does all the effort to complete an activity 7 Patient refused to complete or attempt activity 9 The patient did not perform the activity before the current illness or injury 88 Not attempted due to Medical conditions or safety concerns Scootin Sit to/from Stand: 5 Sit to Stand (QC): 5 Weight Bearing Right Lower Extremity: Right Full Weight Bearing Left Lower Extremity: Left Full Weight Bearing Gait Training Does the Patient Walk?: Yes Distance (FIM): 4=459-78 ft Distance: 60' Walk 10 feet (QC): 3 Walk 50 ft with 2 Turns(QC): 3 Gait Level of Assist: 3 Gait Assistive Device: FWW Wheelchair Training Does the Pt Use a Wheelchair?: Yes Wheelchair Distance: 3=150 ft Distance: 200' Wheelchair Level of Assist: 6 Wheel 50 ft with 2 turns (QC): 6 Wheel 150 ft (QC): 6 Type of Wheelchair: Manual Exercises NuStep Minutes: 15 NuStep Workload: 5 Treatments Pt is sitting in [facility] upon arrival. Pt propels [facility] in hallway and to Therapy Gym at Mod I. Pt uses NuStep for 15m at WL 5 followed by short rest break. Pt then transfers back to [facility] then to Therapy mat to work on balance while in tabletop position as well as tall kneeling. Pt worked on remaining neutral and not leaning to L side, righting self if this occurs. Pt then transfers to Seated at EOM for short rest break then Seated Ex at EOM. Pt transfers back to [facility] then ambulates in Therapy Gym x2 using FWW at Mod A. PT took short rest break after each round of walking. Pt returns to [facility] and propels it back to room to rest. Pt has all needs met, including call light next to pt at end of tx. Assessment Pt continues to push self and is very motivated to improve so pt can take care of self upon discharge. Pt gets a little teary if he thinks about what is still has to be able to complete before work wants him to return to duties at end of May. STRUCTURER reassures pt that pt has made good progress while in Therapy already. PT Short Term Goals Short Term Goals Time Frame: May 29, 2018 Gait (FIM): 2 Gait Distance Comment: 50' Gait Level of Assist: 4 (min assist) Gait Assistive Device: FWW Wheelchair Distance: 250' PT Blood Bank Business Manager Goals Detention Goals PT Blood Bank Business Manager Goals Time Frame: Jun 12, 2018 Transfers (B,C,W/C) (FIM): 4 Sit to Lying (QC): 4 Lying-Sitting on Side/Bed(QC): 4 Sit to Stand (QC): 4 Rollin Roll Left to Right (QC): 4 Chair/Bln-rt-Brfge Xfer(QC): 4 Car Transfer (QC): 4 Gait (FIM): 4 Distance: 150' Walk 10 feet (QC): 4 Walk 10ft-Uneven Surface(QC): 4 Walk 50ft with 2 Turns (QC): 4 Walk 150 ft (QC): 4 Gait Level of Assist: 4 Gait Assistive Device: FWW Stairs (FIM): 2 # of Steps: 4 1 Step (curb) (QC): 4 4 Steps (QC): 4 PT Plan Problem List Problem List: Activity Tolerance, Functional Strength, Balance, Gait Treatment/Plan Treatment Plan: Continue Plan of Care Treatment Plan: Bed Mobility, Concurrent Therapy, Education, Functional Activity Obdulia, Functional Strength, Group Therapy, Gait, Safety, Therapeutic Exercise, Transfers Treatment Duration: Jun 12, 2018 Frequency: At least 5 of 7 days/Wk (IRF) Estimated Hrs Per Day: 1.5 hours per day Patient and/or Family Agrees t: Yes Safety Risks/Education Patient Education: Gait Training, Correct Positioning, Safety Issues Teaching Recipient: Patient Teaching Methods: Discussion Response to Teaching: Verbalize Understanding Time/GCodes Time In: 900 Time Out: 1000 Total Billed Treatment Time: 60 Total Billed Treatment 1, EX x2 (30m), WCH (10m) & GT (20m) G Codes Necessary: [place] Gusman STRUCTURER May 27, 2018 09:57
[2018-05-27] MEDS: FAMOTIDINE 20 MG (PEPCID) TABLET PO SCH (11:30)
[2018-05-27] MEDS: PANTOPRAZOLE 20 MG TABLET (PROTONIX) PO SCH (11:30)
--- NOTE | 2018-05-27 13:10 | Occupational Ther Daily Note ---
OT Current Status-Daily Note Subjective No pain reported. Appearance Pt. up in chair. Pt. is already dressed. Declines bathing. Agreed to work with OT. Mental Status/Objective Patient Orientation: Person, Place, Time, Situation Functional [place] Measure 0=Not Assessed/NA 4=Minimal Assistance 1=Total Assistance 5=Supervision or Setup 2=Maximal Assistance 6=Modified [place] 3=Moderate Assistance 7=Complete [place] ADL-Treatment Functional [place] Measure 0=Not Assessed/NA 4=Minimal Assistance 1=Total Assistance 5=Supervision or Setup 2=Maximal Assistance 6=Modified [place] 3=Moderate Assistance 7=Complete IndependenceIRFPAI Quality Coding Scale 6 Independent with activity with or without an assistive device 5 Patient requires set up or clean up by helper. Patient completes activity by themselves 4 Supervision or touching assist (CGA). [place] provide cues , steadying assist 3 The helper provides less than half the effort to complete the activity 2 The helper provides more than half the effort to complete the activity 1 Dependent. The helper does all the effort to complete an activity 7 Patient refused to complete or attempt activity 9 The patient did not perform the activity before the current illness or injury 88 Not attempted due to Medical conditions or safety concerns Eating (FIM): 6 Eating (QC): 6 Grooming (FIM): 6 (Pt. completed on own in wheelchair.) Oral Hygiene (QC): 6 Upper Body (FIM): 5 (Pt. was given clothing and able to dress self prior to OT coming to room.) Upper Body Dressing (QC): 5 Lower Body Dressing (FIM): 5 Lower Body Dressing (QC): 5 On/Off Footwear (QC): 5 Transfers (B, C, W/C) (FIM): 6 Other Treatment Pt. states that he had already dressed self. Self propelled to therapy gym. Transferred to mat with Mod I. Worked on balance with side lying. Worked on PNF patterns with cross reaching. Pt. does indicate that left eye is weak and causes blurriness. OT patched right eye to see if this helps. Pt. states that he does not note a difference. Pt. encouraged to see eye after discharge from this facility. Pt. sat on balance ball and worked on core strengthening with weight shifts. Pt. does indicate that he notices "leaning" to left side. However, pt. is able to catch self. Worked on balance and mobility. Pt. requested to emergency response coordinator parallel bars and ambulate back and forth. Pt. able to do this with SBA, multiple times back and forth. Placed mirror in front of pt. Pt. able to watch self in mirror and noted that he would lean to left side. Self propelled wheelchair back to room. All needs met in room. Education OT Patient Education: Correct positioning, Modified ADL techniques, Progress toward Goal/Update tx plan, Purpose of tx/functional activities, Reviewed precautions, Rehab process, Transfer techniques Teaching Recipient: Patient Teaching Methods: Demonstration, Discussion Response to Teaching: Verbalize Understanding, Return Demonstration OT Short Term Goals Short Term Goals Time Frame: May 29, 2018 Toileting(FIM): 3 Toilet/Commode Transfer(FIM): 4 Additional Short Term Goals: 1-Demonstrate ADL Tasks, 2-Verbalize Understanding , 3-ImproveStrength/Obdulia 1=Demonstrate adherence to instructed precautions during ADL tasks. 2=Patient will verbalize/demonstrate understanding of assistive devices/ modifications for ADL. 3=Patient will improve strength/tolerance for activity to enable patient to perform ADL's. OT Care Coordination Manager Goals Nursing Home Goals Time Frame: Jun 12, 2018 Eating (FIM): 6 Eating (QC): 6 Groomin Oral Hygiene (QC): 6 Bathing(FIM): 6 Shower/Bathe Self (QC): 6 Upper Body Dressing(FIM): 6 Upper Body Dressing (QC): 6 Lower Body Dressing(FIM): 6 Lower Body Dressing (QC): 6 On/Off Footwear (QC): 6 Toileting(FIM): 6 Toileting Hygiene (QC): 6 Toilet/Commode Transfer(FIM): 6 Toilet/Commode Transfer (QC): 6 Shower Transfer(FIM): 6 Additional Goals: 1-Demonstrate ADL Tasks, 2-Verbalize Understanding, 3- ImproveStrength/Obdulia 1=Demonstrate adherence to instructed precautions during ADL tasks. 2=Patient will verbalize/demonstrate understanding of assistive devices/ modifications for ADL. 3=Patient will improve strength/tolerance for activity to enable patient to perform ADL's. OT Education/Plan Problem List/Assessment Assessment: Decreased Activ Tolerance, Impaired Coordination, Impaired Funct Balance, Impaired I ADL's, Visual-Perceptual Deficit Pt would benefit from skilled OT to ncrease his independence in basic self care to allow him to safely return home Discharge Recommendations Plan/Recommendations: Continue POC Therapy D/C Recommendations: Home w/ Family Support, Occupational Therapy Home Care Comment Pt. will need a walker and wheelchair. Treatment Plan/Plan of Care Treatment,Training & Education: Yes Patient would benefit from OT for education, treatment and training to promote independence in ADL's, mobility, safety and/or upper extremity function for ADL' s. Plan of Care: ADL Retraining, Functional Mobility, Group Exercise/Act as Ind ( education, exercise, socialization, visual coord, functional activities), UE Funct Exercise/Act, UE Neuromus Re-Ed/Coord, Visual/Perceptual Retrain Treatment Duration: Jun 12, 2018 Frequency: At least 5 of 7 days/Wk (IRF) Estimated Hrs Per Day: 1.5 hours per day Agreement: Yes Rehab Potential: Good Time/GCodes Start Time: 09:30 Stop Time: 10:30 Total Time Billed (hr/min): 60 Billed Treatment Time 1, FA x 4 NAMITA BLANKENSHIP OT May 27, 2018 13:10
--- NOTE | 2018-05-27 14:32 | Therapy Group Daily Note ---
Therapy Daily Group Note Patient Education Topic Other List Below (causes of fatigue and how to manage it) Exercises LE Seated Exercise, UE Exercise Other/Notes Pt. participated in rehab group . Pt. came went via w/c which he propelled maría. Pt. was social, introduced himself and shared what makes him most fatigued at home in daily life. Pt. helped lead seated exercises by reading and demonstrating an exercise. Pt. also shared what he considers success. Pt. wheeled w/c back to room indep after Rx Start Time: 13:00 Stop Time: 14:05 Total Billed Treatment Time: 65 Total Billed Treatment 1,GRP CONNOR CAIN GLASS SANDER BELT May 27, 2018 14:32
[2018-05-27] MEDS: TAMSULOSIN 0.4 MG (FLOMAX) CAP PO SCH (17:22)
[2018-05-27 18:00] VITALS: BP 148/91
[2018-05-27] MEDS: ATORVASTATIN 10 MG (LIPITOR) TABLET PO SCH (20:58)
[2018-05-28 05:10] VITALS: BP 135/93
[2018-05-28] MEDS: RT-ALBUTEROL/IPRATROPIUM 3 ML (DUONEB) VIAL INH SCH ×2 (07:44→19:46)
[2018-05-28 07:53] VITALS: BP 135/93
[2018-05-28] MEDS: CLOPIDOGREL 75 MG (PLAVIX) TABLET PO SCH (07:55)
[2018-05-28] MEDS: DOCUSATE SODIUM 100 MG (COLACE) CAP PO SCH ×2 (07:56→20:15)
[2018-05-28] MEDS: POLYETHYLENE GLYCOL 17 GM (MIRALAX) PACK PO SCH ×2 (07:56→20:09)
[2018-05-28] MEDS: LACTULOSE SYRUP 10GM/15ML (ENULOSE) 30ML UDC PO SCH ×2 (07:56→20:09)
[2018-05-28] MEDS: amLODIPine 5 MG (NORVASC) TAB PO SCH (07:56)
[2018-05-28] MEDS: ASPIRIN E.C. 81 MG (ECOTRIN) TAB PO SCH (07:56)
--- NOTE | 2018-05-28 10:01 | Physical Therapy Daily Note ---
PT Daily Note-Current Subjective Pt sitting in [facility] in room upon arrival. Pt agrees to PT. Pain Location: No Pain Reported Mental Status Patient Orientation: Person, Place, Time, Situation Transfers Functional [place] Measure 0=Not Assessed/NA 4=Minimal Assistance 1=Total Assistance 5=Supervision or Setup 2=Maximal Assistance 6=Modified [place] 3=Moderate Assistance 7=Complete IndependenceIRFPAI Quality Coding Scale 6 Independent with activity with or without an assistive device 5 Patient requires set up or clean up by helper. Patient completes activity by themselves 4 Supervision or touching assist (CGA). [place] provide cues , steadying assist 3 The helper provides less than half the effort to complete the activity 2 The helper provides more than half the effort to complete the activity 1 Dependent. The helper does all the effort to complete an activity 7 Patient refused to complete or attempt activity 9 The patient did not perform the activity before the current illness or injury 88 Not attempted due to Medical conditions or safety concerns Scootin Sit to/from Stand: 6 Sit to Stand (QC): 6 Chair/Qxa-ww-Yvyqj Xfer(QC): 6 Bed to/from Chair: 6 Weight Bearing Right Lower Extremity: Right Full Weight Bearing Left Lower Extremity: Left Full Weight Bearing Gait Training Does the Patient Walk?: Yes Distance (FIM): 3=150 ft Distance: 150' Walk 10 feet (QC): 3 Walk 50 ft with 2 Turns(QC): 3 Walk 150 ft (QC): 3 Gait Level of Assist: 3 Gait Persons Needed: 1 Gait Assistive Device: FWW Pt leans to L side but is improving with both VC & PC to correct positioning while ambulating. Pt walks from Therapy Gym to room with a couple of standing rest breaks but all in one sitting. Pt is very fatigue by end of walk but is very motivated to complete goals pt sets for himself. Wheelchair Training Does the Pt Use a Wheelchair?: Yes Wheelchair Distance: 3=150 ft Distance: 150' Wheelchair Level of Assist: 6 Wheel 50 ft with 2 turns (QC): 6 Wheel 150 ft (QC): 6 Type of Wheelchair: Manual Stair Training Stair Training: Handrails/: 2 handrails #of Steps: 4 1 Step (curb) (QC): 4 4 Steps (QC): 4 Stairs: Pattern: Reciprocal Level of Assist: 4 Exercises NuStep Minutes: 20 NuStep Workload: 5 Treatments Pt propels self in [facility] to Therapy Gym. Pt transfers from [facility] to any Seated surface at Mod I. Pt completes NuStep for 20m at WL 5 followed by balance work on mat at both Tabletop & Tall kneeling. Pt takes short rest then completes 4 steps on staircase. This is followed by rest before walking from Therapy Gym to room with a couple of short standing rest breaks. Pt resting in room at end of tx with all needs met, including call light. Assessment Current Status: Good Progress Pt continues to push self to met goals PT & pt set. Pt is gaining strength and better balance control during activities. Pt still struggles especially with walking to try to self correct pt's leaning to L but improvement is being made. PT Short Term Goals Short Term Goals Time Frame: May 29, 2018 Gait (FIM): 2 Gait Distance Comment: 50' Gait Level of Assist: 4 (min assist) Gait Assistive Device: FWW Wheelchair Distance: 200' PT Longterm Goals Meat And Poultry Inspector Goals PT Meat And Poultry Inspector Goals Time Frame: Jun 12, 2018 Transfers (B,C,W/C) (FIM): 4 Sit to Lying (QC): 4 Lying-Sitting on Side/Bed(QC): 4 Sit to Stand (QC): 4 Rollin Roll Left to Right (QC): 4 Chair/Nvo-cc-Ciioc Xfer(QC): 4 Car Transfer (QC): 4 Gait (FIM): 4 Distance: 150' Walk 10 feet (QC): 4 Walk 10ft-Uneven Surface(QC): 4 Walk 50ft with 2 Turns (QC): 4 Walk 150 ft (QC): 4 Gait Level of Assist: 4 Gait Assistive Device: FWW Stairs (FIM): 2 # of Steps: 4 1 Step (curb) (QC): 4 4 Steps (QC): 4 PT Plan Problem List Problem List: Activity Tolerance, Functional Strength, Safety, Balance, Gait Treatment/Plan Treatment Plan: Continue Plan of Care Treatment Plan: Bed Mobility, Concurrent Therapy, Education, Functional Activity Obdulia, Functional Strength, Group Therapy, Gait, Safety, Therapeutic Exercise, Transfers Treatment Duration: Jun 12, 2018 Frequency: At least 5 of 7 days/Wk (IRF) Estimated Hrs Per Day: 1.5 hours per day Patient and/or Family Agrees t: Yes Safety Risks/Education Patient Education: Gait Training, Correct Positioning, Safety Issues Teaching Recipient: Patient Teaching Methods: Discussion Response to Teaching: Verbalize Understanding Time/GCodes Time In: 900 Time Out: 1000 Total Billed Treatment Time: 60 Total Billed Treatment 1, GT x2 (25m), EX (20m) & FA (15m) G Codes Necessary: [place] Gusman CHRISTIAN SCIENCE PRACTITIONER May 28, 2018 10:01
--- NOTE | 2018-05-28 11:02 | PM & R (SOAP) Progress Note ---
Subjective This was a face to face visit with the patient. Date Seen by Provider: May 28, 2018 Time Seen by Provider: 07:50 Subjective/Events-last exam Patient was seen in his room this AM Patient Min assist for transfers Objective Physician Exam Last Set of Vital Signs Vital Signs Date Time Temp Pulse Resp B/P (MAP) Pulse Ox O2 Delivery O2 Flow Rate FiO2 05/28/18 09:52 Room Air 05/28/18 07:53 72 96 05/28/18 05:10 97.0 19 135/93 (107) 05/23/18 14:46 21 Capillary Refill : I&O Intake and Output 05/28/18 00:00 Intake Total 1620 ml Balance 1620 ml Intake Oral 1620 ml # Voids 9 # Bowel Movements 3 General: Alert, Oriented X3, Cooperative, No Acute Distress HEENT: Atraumatic, PERRLA, EOMI, Mucous Memb Moist/[place] Neck: Supple, No JVD Lungs: Clear to Auscultation Heart: Regular Rate, Normal S1, Normal S2 Abdomen: Normal Bowel Sounds, Soft, No Tenderness Extremities: No Clubbing, No Cyanosis, No Edema Neuro: Other (Left sided weakness and dyscoordination) Assessment/Plan Assessment and Plan Left ischemic cerebellar stroke with dyscoordination and left sided weaknee improving COPD Tobaccoism Occlusion of left vertebral artery Urinary retention improved s/p cysto Gerd on protonix Plan Continue PT/OT Team Conference held yesterday-see report for full functional update and POC Discharge set tentatively for 06/04/18 Patient requests a day pass for Friday services See orders (1) Cerebellar stroke Status: Acute Co-Morbidities that are continuing to impact the rehab process: (include details ) CELENA LOYOLA MD May 28, 2018 11:02 am
--- NOTE | 2018-05-28 11:10 | Progress Note-Urology ---
Progress Note-Urology Progress Notes/Assess & Plan Progress/Assessment & Plan EMPTYING BETTER. PVR 122CC. KEEP ON FLOMAX. FOLLOW UP OFFICE IN 4 WEEKS Final Diagnosis URINE RETENTION (RESOLVED) AMAN MORA MD May 28, 2018 11:10 am
[2018-05-28] MEDS: FAMOTIDINE 20 MG (PEPCID) TABLET PO SCH (11:22)
[2018-05-28] MEDS: PANTOPRAZOLE 20 MG TABLET (PROTONIX) PO SCH (11:23)
[2018-05-28] MEDS ORDERED: TAMS0.4C98 PO (11:55)
[2018-05-28] MEDS ORDERED: ACHD5005 PO (11:55)
[2018-05-28] MEDS ORDERED: ATOR10TA66 PO (11:55)
[2018-05-28] MEDS ORDERED: ASPI-983 PO (11:55)
[2018-05-28] MEDS ORDERED: CLOP75TA28 PO (11:55)
[2018-05-28] MEDS ORDERED: AMLO5TAB2 PO (11:55)
--- NOTE | 2018-05-28 14:42 | Physical Therapy Daily Note ---
PT Daily Note-Current Subjective Pt sitting up in [facility] in room upon arrival. Pt agrees to PT. Pt wants to discharge from ARU today so MENTAL HEALTH COORDINATOR will FIM to test and let SW know what scoring shows. Pain Location: No Pain Reported Mental Status Patient Orientation: Person, Place, Time, Situation Transfers Functional [place] Measure 0=Not Assessed/NA 4=Minimal Assistance 1=Total Assistance 5=Supervision or Setup 2=Maximal Assistance 6=Modified [place] 3=Moderate Assistance 7=Complete IndependenceIRFPAI Quality Coding Scale 6 Independent with activity with or without an assistive device 5 Patient requires set up or clean up by helper. Patient completes activity by themselves 4 Supervision or touching assist (CGA). [place] provide cues , steadying assist 3 The helper provides less than half the effort to complete the activity 2 The helper provides more than half the effort to complete the activity 1 Dependent. The helper does all the effort to complete an activity 7 Patient refused to complete or attempt activity 9 The patient did not perform the activity before the current illness or injury 88 Not attempted due to Medical conditions or safety concerns Transfers (B, C, W/C) (FIM): 5 Scootin Rollin Roll Left to Right (QC): 5 Supine to/from Sit: 5 Sit to/from Stand: 6 Sit to Lying (QC): 5 Sit to Stand (QC): 6 Chair/Jnk-rz-Ajxue Xfer(QC): 6 Bed to/from Chair: 6 Car Transfer (QC): 6 Weight Bearing Right Lower Extremity: Right Full Weight Bearing Left Lower Extremity: Left Full Weight Bearing Gait Training Does the Patient Walk?: Yes Gait (FIM): 3 Distance (FIM): 3=150 ft Distance: 150' Walk 10 feet (QC): 3 Walk 50 ft with 2 Turns(QC): 3 Walk 150 ft (QC): 3 Walking 10ft/uneven surface-QC: 3 Gait Level of Assist: 3 Gait Persons Needed: 1 Gait Assistive Device: FWW Pt needs VC to remind pt to slow down to improve control of balance. Pt continues to lean to L side while ambulating and requires Mod A. Pt is improving with self correction but still a work in progress. Wheelchair Training Does the Pt Use a Wheelchair?: Yes Wheelchair (FIM): 6 Wheelchair Distance: 3=150 ft Distance: 150' Wheelchair Level of Assist: 6 Wheel 50 ft with 2 turns (QC): 6 Wheel 150 ft (QC): 6 Type of Wheelchair: Manual Stair Training Stair Training: Handrails/: 2 handrails Stairs (FIM): 5 #of Steps: 12 1 Step (curb) (QC): 5 4 Steps (QC): 5 12 Steps (QC): 5 Stairs: Pattern: Reciprocal Level of Assist: 5 Balance Picking up an Object (QC): 88 Special Test Comments Pt is unsafe to test due to unstable balance. Treatments Pt transfers from [facility] to Seated surface using SPT at Mod I. Pt completes bed mobility at Mod I as well as car transfer. Pt ambulates using FWW at Mod A for VC & PC to assist pt with correction for leaning to L side while ambulating. Pt completes 3 sets of 4 steps using 2 handrails at close SBA. Pt ambulates across varying surface of at least 10' at Mod A and pt has LOB stepping off mat , catching self. Pt is able to complete [facility] mobility at Mod I. Pt returns to room to rest in recliner at end of tx with all needs met, including call light next to pt. Assessment Current Status: Fair Progress Pt has increased difficulty as pt fatigues especially with walking. Pt continues to push self and needs occasional VC to remind pt to slow down to better control balance. PT Short Term Goals Short Term Goals Time Frame: May 29, 2018 Gait (FIM): 2 Gait Distance Comment: 50' Gait Level of Assist: 4 (min assist) Gait Assistive Device: FWW Wheelchair Distance: 150' PT Fpc Goals Mechanical System Technician Goals PT Mechanical System Technician Goals Time Frame: Jun 12, 2018 Transfers (B,C,W/C) (FIM): 4 Sit to Lying (QC): 4 Lying-Sitting on Side/Bed(QC): 4 Sit to Stand (QC): 4 Rollin Roll Left to Right (QC): 4 Chair/Aei-tk-Vxltx Xfer(QC): 4 Car Transfer (QC): 4 Gait (FIM): 4 Distance: 150' Walk 10 feet (QC): 4 Walk 10ft-Uneven Surface(QC): 4 Walk 50ft with 2 Turns (QC): 4 Walk 150 ft (QC): 4 Gait Level of Assist: 4 Gait Assistive Device: FWW Stairs (FIM): 2 # of Steps: 4 1 Step (curb) (QC): 4 4 Steps (QC): 4 PT Plan Problem List Problem List: Activity Tolerance, Functional Strength, Safety, Balance, Gait Treatment/Plan Treatment Plan: Continue Plan of Care Treatment Plan: Bed Mobility, Concurrent Therapy, Education, Functional Activity Obdulia, Functional Strength, Group Therapy, Gait, Safety, Therapeutic Exercise, Transfers Treatment Duration: Jun 12, 2018 Frequency: At least 5 of 7 days/Wk (IRF) Estimated Hrs Per Day: 1.5 hours per day Patient and/or Family Agrees t: Yes Safety Risks/Education Patient Education: Gait Training, Correct Positioning, Safety Issues Teaching Recipient: Patient Teaching Methods: Discussion Response to Teaching: Verbalize Understanding Time/GCodes Time In: 1300 Time Out: 1330 Total Billed Treatment Time: 30 Total Billed Treatment 1, FA (15m) & GT (15m) G Codes Necessary: D[place] Gusman MENTAL HEALTH COORDINATOR May 28, 2018 14:42
--- NOTE | 2018-05-28 14:58 | Occupational Ther Daily Note ---
OT Current Status-Daily Note Subjective Pt alert, sitting in w/c. Pt agrees to therapy. No c/o pain. Mental Status/Objective Patient Orientation: Person, Place, Time, Situation Functional [place] Measure 0=Not Assessed/NA 4=Minimal Assistance 1=Total Assistance 5=Supervision or Setup 2=Maximal Assistance 6=Modified [place] 3=Moderate Assistance 7=Complete [place] ADL-Treatment Functional [place] Measure 0=Not Assessed/NA 4=Minimal Assistance 1=Total Assistance 5=Supervision or Setup 2=Maximal Assistance 6=Modified [place] 3=Moderate Assistance 7=Complete IndependenceIRFPAI Quality Coding Scale 6 Independent with activity with or without an assistive device 5 Patient requires set up or clean up by helper. Patient completes activity by themselves 4 Supervision or touching assist (CGA). [place] provide cues , steadying assist 3 The helper provides less than half the effort to complete the activity 2 The helper provides more than half the effort to complete the activity 1 Dependent. The helper does all the effort to complete an activity 7 Patient refused to complete or attempt activity 9 The patient did not perform the activity before the current illness or injury 88 Not attempted due to Medical conditions or safety concerns Other Treatment Pt demonstrated ability to complete kitchen tasks at w/c level, mod I. Pt opened drawers and reach toward back of counter to retrieve necessary items. Pt able to reach coffee pot and pour coffee then opened packets (sugar/creamer) then transported back to room without spillage. Pt transferred from w/c to recliner with SPT by self. 2# wt on R wrist, 1# wt on L wrist pt completed 4 exercises to strengthen and increase activity tolerance for daily functional tasks, 3 sets 10 reps. After therapy, pt sitting in recliner with call light/ phone in reach. All needs met in room. OT Short Term Goals Short Term Goals Time Frame: May 29, 2018 Toileting(FIM): 3 Toilet/Commode Transfer(FIM): 4 Additional Short Term Goals: 1-Demonstrate ADL Tasks, 2-Verbalize Understanding , 3-ImproveStrength/Obdulia 1=Demonstrate adherence to instructed precautions during ADL tasks. 2=Patient will verbalize/demonstrate understanding of assistive devices/ modifications for ADL. 3=Patient will improve strength/tolerance for activity to enable patient to perform ADL's. OT Filing Clerk Goals Nursing Home Goals Time Frame: Jun 12, 2018 Eating (FIM): 6 Eating (QC): 6 Groomin Oral Hygiene (QC): 6 Bathing(FIM): 6 Shower/Bathe Self (QC): 6 Upper Body Dressing(FIM): 6 Upper Body Dressing (QC): 6 Lower Body Dressing(FIM): 6 Lower Body Dressing (QC): 6 On/Off Footwear (QC): 6 Toileting(FIM): 6 Toileting Hygiene (QC): 6 Toilet/Commode Transfer(FIM): 6 Toilet/Commode Transfer (QC): 6 Shower Transfer(FIM): 6 Additional Goals: 1-Demonstrate ADL Tasks, 2-Verbalize Understanding, 3- ImproveStrength/Obdulia 1=Demonstrate adherence to instructed precautions during ADL tasks. 2=Patient will verbalize/demonstrate understanding of assistive devices/ modifications for ADL. 3=Patient will improve strength/tolerance for activity to enable patient to perform ADL's. OT Education/Plan Problem List/Assessment Pt would benefit from skilled OT to ncrease his independence in basic self care to allow him to safely return home Discharge Recommendations Plan/Recommendations: Continue POC Treatment Plan/Plan of Care Patient would benefit from OT for education, treatment and training to promote independence in ADL's, mobility, safety and/or upper extremity function for ADL' s. Plan of Care: ADL Retraining, Functional Mobility, Group Exercise/Act as Ind ( education, exercise, socialization, visual coord, functional activities), UE Funct Exercise/Act, UE Neuromus Re-Ed/Coord, Visual/Perceptual Retrain Treatment Duration: Jun 12, 2018 Frequency: At least 5 of 7 days/Wk (IRF) Estimated Hrs Per Day: 1.5 hours per day Agreement: Yes Rehab Potential: Good Time/GCodes Start Time: 14:00 Stop Time: 14:30 Total Time Billed (hr/min): 30 Billed Treatment Time 1 visit-FA 1 (15 min) EX 1 (15 min) ROSEY LOJA May 28, 2018 14:58
--- NOTE | 2018-05-28 15:00 | Occupational Ther Daily Note ---
OT Current Status-Daily Note Subjective No pain reported. Appearance Pt. up in wheelchair. States that he has already showered and dressed self this a.m. with no difficulty. States that he completed all tasks on his own with no safety concerns. Mental Status/Objective Patient Orientation: Person, Place, Time, Situation Functional [place] Measure 0=Not Assessed/NA 4=Minimal Assistance 1=Total Assistance 5=Supervision or Setup 2=Maximal Assistance 6=Modified [place] 3=Moderate Assistance 7=Complete [place] ADL-Treatment Functional [place] Measure 0=Not Assessed/NA 4=Minimal Assistance 1=Total Assistance 5=Supervision or Setup 2=Maximal Assistance 6=Modified [place] 3=Moderate Assistance 7=Complete IndependenceIRFPAI Quality Coding Scale 6 Independent with activity with or without an assistive device 5 Patient requires set up or clean up by helper. Patient completes activity by themselves 4 Supervision or touching assist (CGA). [place] provide cues , steadying assist 3 The helper provides less than half the effort to complete the activity 2 The helper provides more than half the effort to complete the activity 1 Dependent. The helper does all the effort to complete an activity 7 Patient refused to complete or attempt activity 9 The patient did not perform the activity before the current illness or injury 88 Not attempted due to Medical conditions or safety concerns Eating (FIM): 6 Eating (QC): 6 Grooming (FIM): 6 (per pt. at sink) Oral Hygiene (QC): 6 Bathing (FIM): 6 (Per pt. this a.m. Showered self previous to OT coming to room.) Shower/Bathe Self (QC): 6 Upper Body (FIM): 6 Upper Body Dressing (QC): 6 Lower Body Dressing (FIM): 6 Lower Body Dressing (QC): 6 On/Off Footwear (QC): 6 Toileting (FIM): 6 (Per pt.) Toileting Hygiene (QC): 6 Transfers (B, C, W/C) (FIM): 6 Toilet/Commode Transfer (FIM): 6 Toilet Transfer (QC): 6 Shower Transfer(FIM): 6 Other Treatment Pt. has finished PT session and states that he is tired. Agrees to go to therapy gym with OT. Pt. states that his biggest concerns are balance and ambulation. Pt. stood at parallel bar with Mod I. Practiced weight shifts, marching in place, and simple squats. Pt. did relatively well, with only one loss of balance on first squat. Pt. states that he is tired and takes several rest breaks. After finishing this task, pt. is given series of fine motor/ coordination tasks to work on, as he still reports having decreased coordination in left hand. Pt. is able to thread beads with some difficulty, and then worked on picking up toothpicks, threading paper clips. Noted tremor and pt. reports that this has always been there. Pt. becomes frustrated. OT asked pt. to self propel to kitchen. Practiced standing at sink and wiping off counter, as pt. reports that he does clean up at home. Pt. also practices retrieving item from refrigerator at wheelchair level. Pt. is able to do this and states, "that is pud." Self propelled back to room. Pt. reports that he is frustrated, and ready to go home. States, "I feel like I have come as far as I can here." Reports that he would like outpt services upon going home. Spoke with him regarding equipment. Pt. states that his has obtained some , and is waiting on a walker and prevention rn. Spoke with geriatric social worker who will speak with pt. regarding going home. All needs met in room. Education OT Patient Education: Correct positioning, Energy conservation, Exercise program, Home exercise program, Modified ADL techniques, Progress toward Goal/ Update tx plan, Purpose of tx/functional activities, Reviewed precautions, Rehab process, Transfer techniques Teaching Recipient: Patient Teaching Methods: Demonstration, Discussion Response to Teaching: Verbalize Understanding, Return Demonstration OT Short Term Goals Short Term Goals Time Frame: May 29, 2018 Toileting(FIM): 3 Toilet/Commode Transfer(FIM): 4 Additional Short Term Goals: 1-Demonstrate ADL Tasks, 2-Verbalize Understanding , 3-ImproveStrength/Obdulia 1=Demonstrate adherence to instructed precautions during ADL tasks. 2=Patient will verbalize/demonstrate understanding of assistive devices/ modifications for ADL. 3=Patient will improve strength/tolerance for activity to enable patient to perform ADL's. OT Alf Goals Alf Goals Time Frame: Jun 12, 2018 Eating (FIM): 6 Eating (QC): 6 Groomin Oral Hygiene (QC): 6 Bathing(FIM): 6 Shower/Bathe Self (QC): 6 Upper Body Dressing(FIM): 6 Upper Body Dressing (QC): 6 Lower Body Dressing(FIM): 6 Lower Body Dressing (QC): 6 On/Off Footwear (QC): 6 Toileting(FIM): 6 Toileting Hygiene (QC): 6 Toilet/Commode Transfer(FIM): 6 Toilet/Commode Transfer (QC): 6 Shower Transfer(FIM): 6 Additional Goals: 1-Demonstrate ADL Tasks, 2-Verbalize Understanding, 3- ImproveStrength/Obdulia 1=Demonstrate adherence to instructed precautions during ADL tasks. 2=Patient will verbalize/demonstrate understanding of assistive devices/ modifications for ADL. 3=Patient will improve strength/tolerance for activity to enable patient to perform ADL's. OT Education/Plan Problem List/Assessment Assessment: Decreased Activ Tolerance, Decreased UE Strength, Impaired Coordination, Impaired Funct Balance, Impaired I ADL's, Impaired Self-Care Skills, Restricted Funct UE ROM Pt would benefit from skilled OT to ncrease his independence in basic self care to allow him to safely return home Discharge Recommendations Plan/Recommendations: Continue POC Therapy D/C Recommendations: Home w/ Family Support Comment Pt. will need a walker and wheelchair. Target Placement Home with spouse and family support. Treatment Plan/Plan of Care Treatment,Training & Education: Yes Patient would benefit from OT for education, treatment and training to promote independence in ADL's, mobility, safety and/or upper extremity function for ADL' s. Plan of Care: ADL Retraining, Functional Mobility, Group Exercise/Act as Ind ( education, exercise, socialization, visual coord, functional activities), UE Funct Exercise/Act, UE Neuromus Re-Ed/Coord, Visual/Perceptual Retrain Treatment Duration: Jun 12, 2018 Frequency: At least 5 of 7 days/Wk (IRF) Estimated Hrs Per Day: 1.5 hours per day Agreement: Yes Rehab Potential: Good Time/GCodes Start Time: 10:15 Stop Time: 11:15 Total Time Billed (hr/min): 60 Billed Treatment Time 1, FA x 4 NAMITA BLANKENSHIP OT May 28, 2018 15:00
[2018-05-28] MEDS: TAMSULOSIN 0.4 MG (FLOMAX) CAP PO SCH (17:08)
[2018-05-28 17:48] VITALS: BP 145/80
[2018-05-28] MEDS: ATORVASTATIN 40 MG (LIPITOR) TABLET PO SCH (20:15)
[2018-05-29 05:18] VITALS: BP 134/48
[2018-05-29] MEDS: RT-ALBUTEROL/IPRATROPIUM 3 ML (DUONEB) VIAL INH SCH ×2 (06:41→18:26)
[2018-05-29] MEDS: amLODIPine 5 MG (NORVASC) TAB PO SCH (07:55)
[2018-05-29] MEDS: CLOPIDOGREL 75 MG (PLAVIX) TABLET PO SCH (07:55)
[2018-05-29] MEDS: LACTULOSE SYRUP 10GM/15ML (ENULOSE) 30ML UDC PO SCH ×2 (07:56→18:47)
[2018-05-29] MEDS: DOCUSATE SODIUM 100 MG (COLACE) CAP PO SCH ×2 (07:56→20:15)
[2018-05-29] MEDS: ASPIRIN E.C. 81 MG (ECOTRIN) TAB PO SCH (07:56)
[2018-05-29] MEDS: POLYETHYLENE GLYCOL 17 GM (MIRALAX) PACK PO SCH ×2 (07:57→18:47)
--- NOTE | 2018-05-29 08:47 | PM & R (SOAP) Progress Note ---
Subjective This was a face to face visit with the patient. Date Seen by Provider: May 29, 2018 Time Seen by Provider: 08:00 Subjective/Events-last exam Patient was seen in his room this Am Patient still here and wasnt informed Patient has decided to leave tomorrow Patient SBA for transfers,Will change date on discharge orders Objective Physician Exam Last Set of Vital Signs Vital Signs Date Time Temp Pulse Resp B/P (MAP) Pulse Ox O2 Delivery O2 Flow Rate FiO2 05/29/18 06:43 96 Room Air 05/29/18 05:18 97.4 107 18 134/48 (76) 05/23/18 14:46 21 Capillary Refill : I&O Intake and Output 05/29/18 00:00 Intake Total 1410 ml Balance 1410 ml Intake Oral 1410 ml # Voids 8 General: Alert, Oriented X3, Cooperative, No Acute Distress HEENT: Atraumatic, PERRLA, EOMI, Mucous Memb Moist/[place] Neck: Supple, No JVD Lungs: Clear to Auscultation Heart: Regular Rate, Normal S1, Normal S2 Abdomen: Normal Bowel Sounds, Soft, No Tenderness Extremities: No Clubbing, No Cyanosis, No Edema Neuro: Other (strength and coordination much improved on left but patient still reports some gait imbalance) Assessment/Plan Assessment and Plan Left ischemic cerebellar stroke with dyscoordination and left sided weaknese on left much improved Gait imbalance due to above improving COPD Tobaccoism Occlusion of left vertebral artery Urinary retention improved s/p cysto Appreciate DR [place] note GERD on protonix Plan Continue PT/OT Discharge reset for tomorrow to home with spouse with F/U outpatient PT F/U with PCP as an outpatient See orders. (1) Cerebellar stroke Status: Acute Co-Morbidities that are continuing to impact the rehab process: (include details ) CELENA LOYOLA MD May 29, 2018 08:47
--- NOTE | 2018-05-29 09:15 | Progress Note-Urology ---
Progress Note-Urology Progress Notes/Assess & Plan Progress/Assessment & Plan CONTINUES WELL VOIDING. HOME ON FLOMAX AND SEE ME IN 4 WEEKS Final Diagnosis URINE RETENTION (RESOLVED) AMAN MORA MD May 29, 2018 9:15 am
--- NOTE | 2018-05-29 10:51 | Physical Therapy Daily Note ---
PT Daily Note-Current Subjective Pt. agrees to Rx. States he has his new w/c here. present, ready to have some education and talk home DC and situation at home. Pain Numeric Pain Scale: 0-No Pain Mental Status Patient Orientation: Normal For Age Transfers Functional [place] Measure 0=Not Assessed/NA 4=Minimal Assistance 1=Total Assistance 5=Supervision or Setup 2=Maximal Assistance 6=Modified [place] 3=Moderate Assistance 7=Complete IndependenceIRFPAI Quality Coding Scale 6 Independent with activity with or without an assistive device 5 Patient requires set up or clean up by helper. Patient completes activity by themselves 4 Supervision or touching assist (CGA). [place] provide cues , steadying assist 3 The helper provides less than half the effort to complete the activity 2 The helper provides more than half the effort to complete the activity 1 Dependent. The helper does all the effort to complete an activity 7 Patient refused to complete or attempt activity 9 The patient did not perform the activity before the current illness or injury 88 Not attempted due to Medical conditions or safety concerns Transfers (B, C, W/C) (FIM): 6 Scootin Rollin Roll Left to Right (QC): 5 Supine to/from Sit: 6 Sit to/from Stand: 6 Sit to Lying (QC): 5 Sit to Stand (QC): 5 Chair/Gyq-pg-Eakfh Xfer(QC): 5 Bed to/from Chair: 6 Car Transfer (QC): 6 Weight Bearing Right Lower Extremity: Right Full Weight Bearing Left Lower Extremity: Left Full Weight Bearing Gait Training Does the Patient Walk?: Yes Gait (FIM): 4 Distance (FIM): 3=150 ft Walk 10 feet (QC): 4 Walk 50 ft with 2 Turns(QC): 4 Walk 150 ft (QC): 4 Walking 10ft/uneven surface-QC: 4 Gait Level of Assist: 4 Gait Persons Needed: 1 Gait Assistive Device: FWW skilled verbal instruction a few times for broader [place] and symmetrical position in FWW Wheelchair Training Does the Pt Use a Wheelchair?: Yes Wheelchair (FIM): 6 Wheelchair Distance: 3=150 ft Wheelchair Level of Assist: 6 Wheel 50 ft with 2 turns (QC): 5 Wheel 150 ft (QC): 5 Type of Wheelchair: Manual forward, back, on grades and flat, 360 degree turns etc, good control, brakes appropriately Stair Training Stair Training: Handrails/: 2 handrails Stairs (FIM): 2 #of Steps: 4 1 Step (curb) (QC): 3 4 Steps (QC): 3 Stairs: Pattern: Reciprocal Level of Assist: 4 needs some skilled verbal instruction for safety, present and trained in stair safety and assist Balance Special Test Comments unsafe to attempt Exercises Supine Ex: Bridging, Rolling, Heel Slides, Scooting, Straight leg raise Supine Reps: 12 Assessment Current Status: Good Progress helpful and has home prepared for pts. return PT Short Term Goals Short Term Goals Time Frame: May 29, 2018 Gait (FIM): 2 Gait Distance Comment: 50' Gait Level of Assist: 4 (min assist) Gait Assistive Device: FWW Wheelchair Distance: 150' PT Scientist Immunology Goals Senior Living Goals PT Senior Living Goals Time Frame: Jun 12, 2018 Transfers (B,C,W/C) (FIM): 4 Sit to Lying (QC): 4 Lying-Sitting on Side/Bed(QC): 4 Sit to Stand (QC): 4 Rollin Roll Left to Right (QC): 4 Chair/Xgf-gu-Vkdrl Xfer(QC): 4 Car Transfer (QC): 4 Gait (FIM): 4 Distance: 150' Walk 10 feet (QC): 4 Walk 10ft-Uneven Surface(QC): 4 Walk 50ft with 2 Turns (QC): 4 Walk 150 ft (QC): 4 Gait Level of Assist: 4 Gait Assistive Device: FWW Stairs (FIM): 2 # of Steps: 4 1 Step (curb) (QC): 4 4 Steps (QC): 4 PT Plan Treatment/Plan Treatment Plan: Continue Plan of Care Treatment Plan: Bed Mobility, Concurrent Therapy, Education, Functional Activity Obdulia, Functional Strength, Group Therapy, Gait, Safety, Therapeutic Exercise, Transfers Treatment Duration: Jun 12, 2018 Frequency: At least 5 of 7 days/Wk (IRF) Estimated Hrs Per Day: 1.5 hours per day Patient and/or Family Agrees t: Yes Safety Risks/Education Patient Education: Gait Training, Transfer Techniques, Steps, Correct Positioning, W/C Management, Disease Process, Safety Issues Teaching Recipient: Patient Teaching Methods: Demonstration, Discussion Response to Teaching: Verbalize Understanding, Return Demonstration, Reinforcement Needed present, patient and both trained in stairs, adjusting FWW, how to apply gait belt as well as gait safety and TRF safety w/c to bed and chair etc Time/GCodes Time In: 1000 Time Out: 1100 Total Billed Treatment Time: 60 Total Billed Treatment 1,WC15m,GT10m,FA35m G Codes Necessary: CONNOR Lacey HEAT TREAT SUPERVISOR May 29, 2018 10:51
--- NOTE | 2018-05-29 11:51 | Occupational Ther Daily Note ---
OT Current Status-Daily Note Subjective Pt alert, sitting in recliner. present in room. Pt agrees to therapy. Mental Status/Objective Patient Orientation: Person, Place, Time, Situation Functional [place] Measure 0=Not Assessed/NA 4=Minimal Assistance 1=Total Assistance 5=Supervision or Setup 2=Maximal Assistance 6=Modified [place] 3=Moderate Assistance 7=Complete [place] ADL-Treatment At w/c level, pt is able to complete bathing (washing, rinsing and drying) by self using shower bench, grabbar and hand held shower. Retrieves clothing at w/ c level and completes dressing (upper/lower body) by self. At w/c level, pt complete grooming at sink. Pt is able to transfer to and from toilet and shower by self using grabbars and w/c. Completes toileting by self using grabbars. Opens containers/packages by self then uses regular utensils to feed self. Pt has tremors and has tried wt'd utensils which decrease tremors. Pt and given ways to modify own eating and writing utensils to make wt'd. AE catalog given to pt for resource. UE exercises with hand wts HEP given to pt for home use. Pt verbalized understanding of exercises. After therapy, pt sitting in recliner with present. All needs met in room. Functional [place] Measure 0=Not Assessed/NA 4=Minimal Assistance 1=Total Assistance 5=Supervision or Setup 2=Maximal Assistance 6=Modified [place] 3=Moderate Assistance 7=Complete IndependenceIRFPAI Quality Coding Scale 6 Independent with activity with or without an assistive device 5 Patient requires set up or clean up by helper. Patient completes activity by themselves 4 Supervision or touching assist (CGA). [place] provide cues , steadying assist 3 The helper provides less than half the effort to complete the activity 2 The helper provides more than half the effort to complete the activity 1 Dependent. The helper does all the effort to complete an activity 7 Patient refused to complete or attempt activity 9 The patient did not perform the activity before the current illness or injury 88 Not attempted due to Medical conditions or safety concerns Eating (FIM): 6 Eating (QC): 6 Grooming (FIM): 6 Oral Hygiene (QC): 6 Bathing (FIM): 6 Bathing Location: L Arm, R Arm, L Upper Leg, R Upper Leg, L Lower Leg ( including foot), R Lower Leg (including foot), Chest, Abdomen, Buttocks, Perineal Area Shower/Bathe Self (QC): 6 Upper Body (FIM): 6 Upper Body Dressing (QC): 6 Lower Body Dressing (FIM): 6 Lower Body Dressing (QC): 6 On/Off Footwear (QC): 6 Toileting (FIM): 6 Toileting Hygiene (QC): 6 Transfers (B, C, W/C) (FIM): 6 Toilet/Commode Transfer (FIM): 6 Toilet Transfer (QC): 6 Shower Transfer(FIM): 6 Education OT Patient Education: Home exercise program Teaching Recipient: Patient, Family Teaching Methods: Demonstration, Handout, Discussion Response to Teaching: Verbalize Understanding OT Short Term Goals Short Term Goals Time Frame: May 29, 2018 Toileting(FIM): 3 Toilet/Commode Transfer(FIM): 4 Additional Short Term Goals: 1-Demonstrate ADL Tasks, 2-Verbalize Understanding , 3-ImproveStrength/Obdulia 1=Demonstrate adherence to instructed precautions during ADL tasks. 2=Patient will verbalize/demonstrate understanding of assistive devices/ modifications for ADL. 3=Patient will improve strength/tolerance for activity to enable patient to perform ADL's. OT Sports Medicine Trainer Goals Sports Medicine Trainer Goals Time Frame: Jun 12, 2018 Eating (FIM): 6 Eating (QC): 6 Groomin Oral Hygiene (QC): 6 Bathing(FIM): 6 Shower/Bathe Self (QC): 6 Upper Body Dressing(FIM): 6 Upper Body Dressing (QC): 6 Lower Body Dressing(FIM): 6 Lower Body Dressing (QC): 6 On/Off Footwear (QC): 6 Toileting(FIM): 6 Toileting Hygiene (QC): 6 Toilet/Commode Transfer(FIM): 6 Toilet/Commode Transfer (QC): 6 Shower Transfer(FIM): 6 Additional Goals: 1-Demonstrate ADL Tasks, 2-Verbalize Understanding, 3- ImproveStrength/Obdulia 1=Demonstrate adherence to instructed precautions during ADL tasks. 2=Patient will verbalize/demonstrate understanding of assistive devices/ modifications for ADL. 3=Patient will improve strength/tolerance for activity to enable patient to perform ADL's. OT Education/Plan Problem List/Assessment Pt would benefit from skilled OT to ncrease his independence in basic self care to allow him to safely return home Discharge Recommendations Plan/Recommendations: Continue POC Treatment Plan/Plan of Care Patient would benefit from OT for education, treatment and training to promote independence in ADL's, mobility, safety and/or upper extremity function for ADL' s. Plan of Care: ADL Retraining, Functional Mobility, Group Exercise/Act as Ind ( education, exercise, socialization, visual coord, functional activities), UE Funct Exercise/Act, UE Neuromus Re-Ed/Coord, Visual/Perceptual Retrain Treatment Duration: Jun 12, 2018 Frequency: At least 5 of 7 days/Wk (IRF) Estimated Hrs Per Day: 1.5 hours per day Agreement: Yes Rehab Potential: Good Time/GCodes Start Time: 11:00 Stop Time: 12:00 Total Time Billed (hr/min): 60 Billed Treatment Time 1 visit-ADL 3 (50 min) EX 1 (10 min) ROSEY LOJA May 29, 2018 11:51
[2018-05-29] MEDS: PANTOPRAZOLE 20 MG TABLET (PROTONIX) PO SCH (12:03)
[2018-05-29] MEDS: FAMOTIDINE 20 MG (PEPCID) TABLET PO SCH (12:03)
--- NOTE | 2018-05-29 12:32 | Cardiology Progress Note ---
Subjective Date Seen by Provider: May 29, 2018 Time Seen by Provider: 08:00 Subjective/Events-last exam Patient is in a chair, complaining of lightheadedness, still having unsteady gait, muscle strength is back to normal. Getting ready for discharge tomorrow Review of Systems General: No Chills, No Night Sweats, No Fatigue, No Malaise, No Appetite, No Other HEENT: No Head Aches, No Visual Changes, No Eye Pain, No Ear Pain, No Dysphasia , No Sinus Congestion, No Post Nasal Drip, No Sore Throat, No Other Pulmonary: No Dyspnea, No Cough, No Pleuritic Chest Pain, No Other Cardiovascular: No: Chest Pain, Palpitations, Orthopnea, Paroxysmal Noc. Dyspnea, Edema, Lt Headedness, Other Objective-Cardiology Exam Last Set of Vital Signs Vital Signs 05/23/18 05/29/18 05/29/18 05/29/18 14:46 05:18 06:43 08:00 Temp 97.4 Pulse 107 Resp 18 B/P (MAP) 134/48 (76) Pulse Ox 96 O2 Delivery Room Air FiO2 21 Capillary Refill : I&O Intake and Output 05/29/18 00:00 Intake Total 1410 ml Balance 1410 ml Intake Oral 1410 ml # Voids 8 General: Alert, Oriented X3, Cooperative, No Acute Distress HEENT: Atraumatic, PERRLA, EOMI, Mucous Memb Moist/[place] Neck: Supple, No JVD Lungs: Clear to Auscultation Heart: Regular Rate, Normal S1, Normal S2 Abdomen: Normal Bowel Sounds, Soft, No Tenderness Extremities: No Clubbing, No Cyanosis, No Edema Neuro: Normal Speech, Other (strength and coordination much improved on left but patient still reports some gait imbalance) A/P-Cardiology Admission Diagnosis CVA Hypertension Hyperlipidemia Gastroesophageal reflux disease Assessment/Plan Status post acute CVA, left sided weakness, improving. Occlusion of the vertebral artery, receiving physical therapy at this time. Still having some lightheadedness and residual weakness. Managed by primary care team, receiving physical and occupational therapy. Continue to monitor Hypertension, continue to monitor blood pressure, no changes are recommended Hyperlipidemia, LDL 113, started on Lipitor, continue to monitor Urinary retention, status post cystoscopy, managed by Dr. Whaley COPD, emphysema, managed by primary care physician Tobaccoism, encouraged to continue with smoking cessation Gastroesophageal reflux disease Clinical Quality Measures DVT/VTE Risk/Contraindication: Risk Factor Score Per Nursin RFS Level Per Nursing on Admit: 4+=Very High CHERRY DAILEY MD May 29, 2018 12:32
--- NOTE | 2018-05-29 14:41 | Therapy Group Daily Note ---
Therapy Daily Group Note Exercises Fine Motor, UE Exercise Other/Notes Pt maneuvered w/c to OT/PT group in [facility]. Group consisted of introductions (name, place living, fun story), socialization, dynamic sitting, fine motor and B UE activities. Pt introduced self appropriately and actively listened to peers. Pt contributed to conversations and began discussions with peers. Pt demonstrated good fine motor skills during activity by isolating thin object, manipulating with digits then placing in designated spot with UE extended against gravity. Pt did have tremors with fine motor activity, able to complete activity without adverse effects from tremors. After therapy, pt in w/c with call light/phone in reach. All needs met in room. Start Time: 13:00 Stop Time: 14:00 Total Billed Treatment Time: 60 Total Billed Treatment 1-GRP ROSEY LOJA May 29, 2018 14:41
[2018-05-29] MEDS: ACETAMINOPHEN 500 MG TAB (TYLENOL) PO PRN (16:10)
[2018-05-29 17:35] VITALS: BP 134/77
[2018-05-29] MEDS: TAMSULOSIN 0.4 MG (FLOMAX) CAP PO SCH (18:51)
[2018-05-29] MEDS: ATORVASTATIN 40 MG (LIPITOR) TABLET PO SCH (20:10)
[2018-05-30 05:11] VITALS: BP 120/82
[2018-05-30] MEDS: RT-ALBUTEROL/IPRATROPIUM 3 ML (DUONEB) VIAL INH SCH (06:55)
--- NOTE | 2018-05-30 08:02 | PM & R (SOAP) Progress Note ---
Subjective This was a face to face visit with the patient. Date Seen by Provider: May 30, 2018 Time Seen by Provider: 07:45 Subjective/Events-last exam Patient was seen in his room this AM Discussed case with DR Whaley yesterday Appreciate Dr Muñoz note.All set for discharge today. Objective Physician Exam Last Set of Vital Signs Vital Signs Date Time Temp Pulse Resp B/P (MAP) Pulse Ox O2 Delivery O2 Flow Rate FiO2 05/30/18 06:55 96 Room Air 05/30/18 05:11 98.2 91 18 120/82 (95) Capillary Refill : I&O Intake and Output 05/30/18 00:00 Intake Total 1410 ml Balance 1410 ml Intake Oral 1410 ml # Voids 8 # Bowel Movements 2 General: Alert, Oriented X3, Cooperative, No Acute Distress HEENT: Atraumatic, PERRLA, EOMI, Mucous Memb Moist/[place] Neck: Supple, No JVD Lungs: Clear to Auscultation Heart: Regular Rate, Normal S1, Normal S2 Abdomen: Normal Bowel Sounds, Soft, No Tenderness Extremities: No Clubbing, No Cyanosis, No Edema Neuro: Normal Speech, Other (strength and coordination much improved on left but patient still reports some gait imbalance) Assessment/Plan Assessment and Plan Home today with spouse with F/U outpatient PT F/U with PCP Current meds reviewed See orders. (1) Cerebellar stroke Status: Acute Co-Morbidities that are continuing to impact the rehab process: (include details ) CELENA LOYOLA MD May 30, 2018 08:02
[2018-05-30] MEDS: amLODIPine 5 MG (NORVASC) TAB PO SCH (08:38)
[2018-05-30] MEDS: DOCUSATE SODIUM 100 MG (COLACE) CAP PO SCH (08:38)
[2018-05-30] MEDS: POLYETHYLENE GLYCOL 17 GM (MIRALAX) PACK PO SCH (08:38)
[2018-05-30] MEDS: LACTULOSE SYRUP 10GM/15ML (ENULOSE) 30ML UDC PO SCH (08:38)
[2018-05-30] MEDS: ASPIRIN E.C. 81 MG (ECOTRIN) TAB PO SCH (08:38)
[2018-05-30] MEDS: CLOPIDOGREL 75 MG (PLAVIX) TABLET PO SCH (08:38)
[2018-05-30 09:00] VITALS: BP 120/82
--- NOTE | 2018-06-01 09:34 | Therapy Team Discharge Summary ---
Therapy Discharge Summary Discharge Recommendations Date of Discharge May 30, 2018 at 09:00 Therapy D/C Recommendations: Home w/ Family Support Occupational Therapy Pt. has been seen by occupational therapy to increase overall strength and independence with daily tasks. Pt. has met all ADL goals. Still demonstrate decreased coordination in left UE and decreased balance with ambulation. Family and pt. has been educated on how to work on these things at home. Pt. would like outpt. PT services. Pt.'s spouse has already obtained all needed equipment at home. Decreased Activ Tolerance, Decreased UE Strength, Impaired Coordination, Impaired Funct Balance, Impaired I ADL's, Restricted Funct UE ROM PT Food Checkers And Cashiers Supervisor Goals Food Checkers And Cashiers Supervisor Goals PT Food Checkers And Cashiers Supervisor Goals Time Frame: Jun 12, 2018 Transfers (B,C,W/C) (FIM): 4 Roll Left to Right (QC): 4 Sit to Lying (QC): 4 Lying-Sitting on Side/Bed(QC): 4 Sit to Stand (QC): 4 Chair/Aqr-zy-Tfmgw Xfer(QC): 4 Car Transfer (QC): 4 Gait (FIM): 4 Distance: 150' Walk 10 feet (QC): 4 Walk 10ft-Uneven Surface(QC): 4 Walk 50ft with 2 Turns (QC): 4 Walk 150 ft (QC): 4 Gait Level of Assist: 4 Gait Assistive Device: FWW Stairs (FIM): 2 # of Steps: 4 1 Step (curb) (QC): 4 4 Steps (QC): 4 OT Food Checkers And Cashiers Supervisor Goals Mcc Goals Time Frame: Jun 12, 2018 Eating (FIM): 6 (met) Eating (QC): 6 (met) Oral Hygiene (QC): 6 (met) Grooming(FIM): 6 (met) Bathing(FIM): 6 (met) Shower/Bathe Self (QC): 6 (met) Upper Body Dressing(FIM): 6 (met) Upper Body Dressing (QC): 6 (met) Lower Body Dressing(FIM): 6 (met) Lower Body Dressing (QC): 6 (met) On/Off Footwear (QC): 6 (met) Toileting(FIM): 6 (met) Toileting Hygiene (QC): 6 (met) Toilet/Commode Transfer(FIM): 6 (met) Toilet/Commode Transfer (QC): 6 (met) Shower Transfer(FIM): 6 (met) Additional Goals: 1-Demonstrate ADL Tasks, 2-Verbalize Understanding, 3- ImproveStrength/Obdulia 1=Demonstrate adherence to instructed precautions during ADL tasks. 2=Patient will verbalize/demonstrate understanding of assistive devices/ modifications for ADL. 3=Patient will improve strength/tolerance for activity to enable patient to perform ADL's. NAMITA BLANKENSHIP OT Jun 01, 2018 09:34
--- NOTE | 2018-06-01 10:03 | Therapy Team Discharge Summary ---
Therapy Discharge Summary Discharge Recommendations Date of Discharge May 30, 2018 at 09:00 Therapy D/C Recommendations: Home w/ Family Support, Speech Therapy Outpatient (PT HHC or outpatient), Other, See Comments (Physical Therapy) Physical Therapy This patient was transferred to ARU post acute stay for an acute CVA. Prior to admission, he was indep with all mobility and actively working. Upon admission to ARU, he required mod assist with tranfers, ambulated 20 ft with mod assist and was min assist iwth wheelchair mobility. Treatment consisted of functional strengthening, gait, tranfers, balance, safety, activity tolerance and education. He did make good progress and expressed his desire to return home iwth family. At last visit, he was mod indep with tranfers, min assist with gait, mod indep with wheelchair mobility and scored a 2 on stairs. He achieved goals to a satisfactory level and is to discharge home with family. Recommend follow up PT either on a [facility] or outpatient basis. DC PT. Occupational Therapy Decreased Activ Tolerance, Decreased UE Strength, Impaired Coordination, Impaired Funct Balance, Impaired I ADL's, Restricted Funct UE ROM PT Nutrient Management Specialist Goals Nutrient Management Specialist Goals PT Nutrient Management Specialist Goals Time Frame: Jun 12, 2018 Transfers (B,C,W/C) (FIM): 4 Roll Left to Right (QC): 4 Sit to Lying (QC): 4 Lying-Sitting on Side/Bed(QC): 4 Sit to Stand (QC): 4 Chair/Arl-en-Sflbn Xfer(QC): 4 Car Transfer (QC): 4 Gait (FIM): 4 Distance: 150' Walk 10 feet (QC): 4 Walk 10ft-Uneven Surface(QC): 4 Walk 50ft with 2 Turns (QC): 4 Walk 150 ft (QC): 4 Gait Level of Assist: 4 Gait Assistive Device: FWW Stairs (FIM): 2 # of Steps: 4 1 Step (curb) (QC): 4 4 Steps (QC): 4 Pt exceeded all goals set a t evaluation. OT Correction Goals Nutrient Management Specialist Goals Time Frame: Jun 12, 2018 Eating (FIM): 6 (met) Eating (QC): 6 (met) Oral Hygiene (QC): 6 (met) Grooming(FIM): 6 (met) Bathing(FIM): 6 (met) Shower/Bathe Self (QC): 6 (met) Upper Body Dressing(FIM): 6 (met) Upper Body Dressing (QC): 6 (met) Lower Body Dressing(FIM): 6 (met) Lower Body Dressing (QC): 6 (met) On/Off Footwear (QC): 6 (met) Toileting(FIM): 6 (met) Toileting Hygiene (QC): 6 (met) Toilet/Commode Transfer(FIM): 6 (met) Toilet/Commode Transfer (QC): 6 (met) Shower Transfer(FIM): 6 (met) Additional Goals: 1-Demonstrate ADL Tasks, 2-Verbalize Understanding, 3- ImproveStrength/Obdulia 1=Demonstrate adherence to instructed precautions during ADL tasks. 2=Patient will verbalize/demonstrate understanding of assistive devices/ modifications for ADL. 3=Patient will improve strength/tolerance for activity to enable patient to perform ADL's. ROSEY LARSEN PT Jun 01, 2018 10:03
--- NOTE | 2018-06-10 01:16 | DISCHARGE SUMMARY ---
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 The patient had an MRI of the brain revealing a nonischemic left cerebellar stroke accounting for his symptoms. The patient was outside of the window for TPA. A CT of the neck revealed left vertebral artery nearly completely is not completely occluded throughout much of its length. The patient was placed on a statin and Plavix therapy was begun. The patient was felt to be appropriate for inpatient rehabilitation unit. PAST MEDICAL HISTORY: Tobaccoism, COPD, GERD. He is and lives with his spouse in [place], [place]. PCP is Estefani Still MD. The patient is being followed by Cardiology, Dr. De Souza and hospitalist,and Dr. Rae . Echocardiogram did not reveal any cardiac source. MEDICAL COURSE: The patient was followed by Dr. Heart and hospitalist service and cardiology had good return of strength and coordination on the left. He was assessed by speech therapy upon admission and found to be intact, they signed off. He was afebrile during his stay. His blood pressure was 120/82 on , pulse 91, respirations 18, O2 sat 95% on room air. The patient was followed by Dr. Whlaey for urinary retention. PSA was 0.75 on 05/24. The patient had cystoscopy on 05/[address] Whaley for urinary retention. Recommendation was continue Flomax. Prostate was noted to be mildly enlarged with mild bladder neck obstruction and mild trabeculation of the bladder. He was voiding well upon discharge and was continent of bowel and bladder. REHABILITATION COURSE: As mentioned above, he progressed well with therapy. He had increased strength, endurance and coordination. PT notes upon admission, he required mod assist for transfers, could ambulate 20 feet with mod assist, was min assist for wheelchair mobility. Upon discharge, he was modified independent with transfers, min assist with gait, modified independent with wheelchair mobility. OT notes upon admission, he was modified independent with eating, set up for grooming, min assist for bathing and upper body dressing and lower body dressing, mod assist for transfers. Upon discharge, the patient still demonstrated some decreased coordination in the left upper limb and decreased balance with ambulation, but overall improving. Family and the patient have been educated on these issues and the patient will have outpatient PT services. Upon discharge, he is modified independent for eating, grooming, dressing, bathing and toileting. DISCHARGE INSTRUCTIONS: The patient will have followup with his PCP and urology and Dr. Fernández and outpatient PT. DISCHARGE MEDICATIONS: Amlodipine 5 mg p.o. daily, ASA 81 mg p.o. daily, Lipitor 40 mg p.o. daily, Plavix 75 mg p.o. daily, hydrocodone/APAP one tablet p.o. q. 4 hours p.r.n. moderate pain, Flomax 0.4 mg p.o. daily. DISCHARGE DIAGNOSES: 1. Rehabilitation ambulatory dysfunction secondary to occlusion, left vertebral artery with left-sided hemiparesis, unsteadiness on feet and discoordination, all improving. 2. Benign prostatic hypertrophy with lower urinary symptoms, urinary retention, improved and bladder neck obstruction, improved, status post cystoscopy, Dr. Whaley. 3. Emphysema. 4. Peripheral vascular disease. 5. Rales. 6. Tobacco dependence. 7. Hypertension, controlled with medication. 8. Status post cystoscopy on 05/25/2018, Dr. Whaley. CONDITION AT DISCHARGE: Improved and stable. PROGNOSIS: Rehab prognosis appears good for continued improvement at home and return to independent living. Job ID: [id number] DocumentID: [id number] Dictated Date: 06/09/2018 09:51:30 Chief Service Observer Date: 06/10/2018 01:15:14 Dictated By: CELENA HEART MD MTDD
== END 2018-05-30 09:00 | disposition home or self-care (01) | DRG 57 ==
PROVIDERS: ADMIT Physical Medicine & Rehabilitation; ATTEND Physical Medicine & Rehabilitation
PROC: 0TJ98ZZ Inspection of Ureter, Via Natural or Artificial Opening Endoscopic (ICD-10-PCS; principal; 2018-05-25 10:30)
DX: I69.354 Hemiplegia and hemiparesis following cerebral infarction affecting left non-dominant side (principal); I69.998 Other sequelae following unspecified cerebrovascular disease; R26.81 Unsteadiness on feet; I65.02 Occlusion and stenosis of left vertebral artery; N40.1 Benign prostatic hyperplasia with lower urinary tract symptoms; R33.9 Retention of urine, unspecified; N32.0 Bladder-neck obstruction; N32.89 Other specified disorders of bladder; J43.9 Emphysema, unspecified; I10 Essential (primary) hypertension; F17.210 Nicotine dependence, cigarettes, uncomplicated; K21.9 Gastro-esophageal reflux disease without esophagitis; I73.9 Peripheral vascular disease, unspecified; K59.01 Slow transit constipation; R09.89 Other specified symptoms and signs involving the circulatory and respiratory systems; E78.5 Hyperlipidemia, unspecified
CPT/HCPCS: 36415; 84153; 94640; 94664; 94760

== ENCOUNTER 2022-03-07 05:29 | Outpatient (CLI) | payer BC, MEDICARE ==
[~2022-03-07] VITALS: Ht 172.7 cm; Wt 96.9 kg
[~2022-03-07 05:29] MED LIST changes: +ACHD5005 PO; +AMLO-250 PO; +ASPI-1238 PO; -ASPI-983 PO; -RANI-515 PO; +RANI-609 PO; -TAMS0.4C98 PO; +TMSL.4C PO
[2022-03-07] MEDS ORDERED: METF-397 PO (13:31)
[2022-03-07] MEDS ORDERED: PRIM50TA33 PO (13:31)
[2022-03-07] MEDS ORDERED: DONE10TA41 PO (13:31)
[2022-03-07] MEDS ORDERED: MEMA10TA57 PO (13:31)
[2022-03-07] MEDS ORDERED: TRIA1CAP4 PO (13:31)
[2022-03-07] MEDS ORDERED: FAMO20TA3 PO (13:31)
[2022-03-07] MEDS ORDERED: ASPI-808 PO (13:44)
== END 2022-03-07 13:47 | disposition home or self-care (01) ==
LOC: PREOP 05:29
PROVIDERS: ATTEND Surgery
DX: Z01.818 Encounter for other preprocedural examination (principal)

== ENCOUNTER 2022-03-14 07:31 | Day surgery (SDC) | payer BC, MEDICARE ==
[~2022-03-14] VITALS: Ht 172.7 cm; Wt 96.9 kg
[2022-03-14] VITALS (13 sets, daily range): BP systolic 130–186; BP diastolic 73–104
[~2022-03-14 07:31] MED LIST changes: +ASPI-808 PO; +DONE10TA41 PO; +FAMO20TA3 PO; +MEMA10TA57 PO; +METF-397 PO; +PRIM50TA33 PO; +TRIA1CAP4 PO
--- NOTE | 2022-03-14 07:58 | Progress Note-Pre Operative ---
Pre-Operative Progress Note H&P Reviewed The H&P was reviewed, patient examined and no changes noted. Date Seen by Provider: Mar 14, 2022 Time Seen by Provider: 07:58 Date H&P Reviewed: Mar 14, 2022 Time H&P Reviewed: 07:58 Pre-Operative Diagnosis: cholelithiasis MARCY OVIEDO DO Mar 14, 2022 07:58
[2022-03-14] MEDS ORDERED: ceFAZolin 2 GM IV Premixed 50 ML IV ONE (08:00)
[2022-03-14] MEDS ORDERED: LIDOCAINE/EPI 2% 1:100,00 (XYLOCAINE) 20 ML VIAL ONE (08:06)
[2022-03-14] MEDS: LACTATED RINGERS 1,000 ML IV PRN ×2 (08:09→09:42)
[2022-03-14] MEDS ORDERED: ONDANSETRON 4 MG/2 ML (SDV) Z0FRAN ONE (08:47)
[2022-03-14] MEDS ORDERED: ROCURONIUM 10 MG/ML 5 ML SYRINGE IV ONE ×2 (08:47→09:35)
[2022-03-14] MEDS ORDERED: MIDAZOLAM 2 MG/2 ML (VERSED) VIAL ONE (08:47)
[2022-03-14] MEDS ORDERED: proPOfol 200 MG/20 ML (DIPRIVAN) VIAL IV ONE (08:47)
[2022-03-14] MEDS ORDERED: GLYCOPYRROLATE 0.2 MG/ML (ROBINUL) 2 ML VIAL ONE (08:47)
[2022-03-14] MEDS ORDERED: LIDOCAINE PF 2% 5 ML (XYLOCAINE) VIAL ONE (08:47)
[2022-03-14] MEDS ORDERED: fentaNYL INJ 100 MCG/2 ML AMP ONE (08:47)
[2022-03-14] MEDS ORDERED: NEOSTIGMINE 3 MG/3 ML VIAL ONE (08:47)
[2022-03-14] MEDS ORDERED: SEVOFLURANE (ULTANE) 15 ML INHAL SOLN ONE (09:45)
--- NOTE | 2022-03-14 09:46 | Progress Note-Post Operative ---
Post-Operative Progess Note Surgeon (s)/Fixture Fabricator Repairer (s) Surgeon MARCY OVIEDO DO Fixture Fabricator Repairer: Dr. Mckeon to assist in retraction dissection and closure. Pre-Operative Diagnosis cholelithiasis Post-Operative Diagnosis same Procedure & Operative Findings Date of Procedure 03/14/22 Procedure Performed/Findings PROCEDURE: Laparoscopic cholecystectomy with intraoperative cholangiogram. COMPLICATIONS: None. PROCEDURE: The patient was taken to the operating suite and was prepped and draped in sterile fashion. A surgical pause was performed. Just superior to the umbilicus, a 12 mm incision was made. Dissection was taken down to the fascia, which was then scored and grasped with a Frances and the abdomen was then entered. A 0 Vicryl suture was placed in a [id number]-ib-vtnws fashion and a Sanchez trocar was placed and secured. Pneumoperitoneum was achieved. A 5mm trochar place in the subxyphoid and 2 in the right upper quadrant. The gallbladder was then grasped and elevated. Adhesion to gallbladder were taken down with cautery. The cystic duct, and cystic artery were then dissected out. Clip was placed on the distal portion of the cystic duct which was then partially transected. An arrow catheter was inserted into the duct. The cholangiogram was then performed. No filing defects and contrast made its way into the duodenum. Catheter removed. Clips were placed on proximal portion of the cystic duct and then the duct was then transected. Clips were placed along the proximal and distal portion of the cystic artery which was then transected. Hook cautery was used to dissect the gallbladder from the gallbladder fossa achieving hemostasis. The gallbladder was placed in an Endobag and removed through the 12 mm trocar site. The abdomen was then reinspected. Copious amounts of irrigation were used to irrigate the abdomen and there were no signs of active bleeding. Hemostasis had been achieved. The 12 mm fascial defect was then closed with 0 Vicryl suture that had been placed in a [id number] fashion. The abdomen was then desufflated, the trocars were removed. The abdomen was then washed and dried. The skin was then closed using 4-0 Monocryl in a subcuticular fashion. The abdomen was washed and dried and Skin Affix was place over incisions. Patient tolerated the procedure well without any complications and was taken to the recovery room in stable condition. Anesthesia Type general Estimated Blood Loss Estimated blood loss (mL): minimal Specimens/Packing Specimens Removed gallbladder MARCY OVIEDO DO Mar 14, 2022 09:46
[2022-03-14] MEDS ORDERED: HYDROmorphone 2 MG/ML VIAL (DILAUDID) ONE (09:47)
--- NOTE | 2022-03-14 09:52 | Discharge Inst-Simple/Standard ---
Discharge Inst-Standard Discharge Medications New, Converted or Re-Newed RX: Transmitted to Pharmacy Patient Instructions/Follow Up Plan of Care/Instructions/FU: 2 weeks Alix Activity as Tolerated: No Discharge Diet: Regular Diet Other Inst to Patient Follow up Appt: Make appointment for 2 weeks. Instructions: No lifting greater than 10 pounds. No strenuous activity. May shower in 24 hours, no tub bath or soaking. Use incentive spirometer at home as directed. No Smoking Skin/Wound Care: You have special glue over incision, it will fall off on it's own. Symptoms to Report: Appetite Changes, Extremity Discoloration, Numbness/Tingling, Swelling Increased, Bleeding Excessive, Eyesight Changes, Pain Increased, Urine Color Change, Constipation(Persistent), Fever over 101 degree F, Pain/Pressure in chest, Urinating Difficulty, Cough Up/Vomit Blood, Heart Beat Irreg/Pounding, Pain/Pressure in jaw, Vaginal Bleeding Increase, Cramps in feet or legs, Lightheadedness, Pain/Pressure in shoulder, Diarrhea(Persistent), Memory Changes Suddenly, Questions/Concerns, Weight gain consecutive days, Dizziness/Fainting, Nausea/Vomiting, Shortness of Breath, Weight gain over 2 pounds. If eyes or skin turn yellow notify physician. If questions or concerns contact your physician Or seek help at emergency department. MARCY OVIEDO DO Mar 14, 2022 09:52
[2022-03-14] MEDS ORDERED: DOCU-143 PO (09:55)
[2022-03-14] MEDS ORDERED: ACHD5005 PO (09:55)
[2022-03-14] MEDS ORDERED: RT-ALBUTEROL SULF 2.5 MG/3 ML PRE-MIX VIAL ONE (10:15)
[2022-03-14] MEDS ORDERED: SUGAMMADEX 500 MG/5 ML VIAL (BRIDION) IV ONE (10:23)
[2022-03-14] MEDS ORDERED: RT-ALBUTEROL SULF 2.5 MG/3 ML PRE-MIX VIAL INH ONE (10:30)
[2022-03-14] MEDS ORDERED: ONDANSETRON 4 MG/2 ML (SDV) Z0FRAN IVP PRN (10:30)
[2022-03-14] MEDS ORDERED: morphine INJ 10 MG/ML 1ML (SYR OR VIAL) IVP ONE (10:30)
[2022-03-14] MEDS ORDERED: HYDROmorphone 2 MG/ML VIAL (DILAUDID) IV ONE (10:30)
--- NOTE | 2022-03-14 12:13 | Anesthesia-General Post-Op ---
General Patient Condition Mental Status/LOC: Same as Preop Cardiovascular: Satisfactory Nausea/Vomiting: Absent Respiratory: Satisfactory Pain: Controlled Complications: Absent Post Op Complications Complications None Follow Up Care/Instructions Patient Instructions None needed. Anesthesia/Patient Condition Patient Condition Patient is doing well, no complaints, stable vital signs, no apparent adverse anesthesia problems. BRIANA OSORIO DO Mar 14, 2022 12:13
--- NOTE | 2022-03-14 12:30 | Diagnostic Imaging Report ---
Indication: Fluoroscopy during intraoperative cholangio-gram. Fluoroscopy was provided in the OR during intraoperative cholangiogram. Total of 10 seconds fluoroscopic time was utilized. 49 images were obtained demonstrating contrast being injected via the cystic duct remnant. There is opacification of nondilated intrahepatic and extrahepatic bile ducts. There is flow of contrast into the duodenum. No definite filling defects are seen to suggest retained stone. IMPRESSION: Fluoroscopy during intraoperative cholangiogram. Dictated by: Dictated on workstation # [id number]
== END 2022-03-14 12:07 | disposition home or self-care (01) ==
LOC: SDC 07:31
PROVIDERS: ATTEND Surgery
DX: K80.10 Calculus of gallbladder with chronic cholecystitis without obstruction (principal); Z87.891 Personal history of nicotine dependence; Z86.73 Personal history of transient ischemic attack (TIA), and cerebral infarction without residual deficits; Z79.02 Long term (current) use of antithrombotics/antiplatelets; E66.9 Obesity, unspecified; Z68.32 Body mass index [BMI] 32.0-32.9, adult; Z79.82 Long term (current) use of aspirin
CPT/HCPCS: 76000; 87081; 88304

== ENCOUNTER → 2022-04-15 | Outpatient (CLI) | payer MEDICARE ==
[~2022-04-15] MED LIST changes: +DOCU-143 PO
--- NOTE | 2022-04-15 09:48 | Diagnostic Imaging Report ---
EXAMINATION: CT chest without contrast (lung screening). TECHNIQUE: Multiple contiguous axial images were obtained through the chest without the use of intravenous contrast according to lung cancer screening protocol. All CT scans use one or more of the following dose optimizing techniques: automated exposure control, MA and/or KvP adjustment based on patient size and exam type or iterative reconstruction. HISTORY: 42 pack year history of smoking. COMPARISON: None available. FINDINGS: Thyroid: The thyroid is normal. Mediastinum: Heart size is normal without significant pericardial effusion. The aorta is normal in caliber. No suspicious lymphadenopathy. Lungs and airways: The lungs are clear without consolidation, pleural effusion, or pneumothorax. There are mild background emphysematous changes of the lungs. There is 0.6 cm right upper lobe pulmonary nodule, unchanged from 05/20/2018. The airways are normal. Upper abdomen: The subphrenic structures are normal. Musculoskeletal: No suspicious osseous lesion or compression fracture. IMPRESSION: 1. No new suspicious pulmonary nodules. Recommend continued annual low-dose CT screening. LUNG-RADS CATEGORY: 2 MODIFIER: S Dictated by: Dictated on workstation # [id number]
== END ==
LOC: RAD 08:45
PROVIDERS: ATTEND Family Medicine
DX: Z12.2 Encounter for screening for malignant neoplasm of respiratory organs (principal); Z87.891 Personal history of nicotine dependence
CPT/HCPCS: 71271

== ENCOUNTER → 2023-06-24 | Outpatient (CLI) | payer MEDICARE ==
[~2023-06-24] MED LIST changes: -TRIA1CAP4 PO; +TRIA1CAP84 PO
--- NOTE | 2023-06-24 08:55 | Diagnostic Imaging Report ---
EXAMINATION: CT chest without contrast (lung screening). TECHNIQUE: Multiple contiguous axial images were obtained through the chest without the use of intravenous contrast according to lung cancer screening protocol. All CT scans use one or more of the following dose optimizing techniques: automated exposure control, MA and/or KvP adjustment based on patient size and exam type or iterative reconstruction. HISTORY: 20 pack year history of smoking. COMPARISON: 04/15/2022. FINDINGS: There is no edema or pneumonia. No pleural effusion. No pneumothorax. There is an unchanged 5 mm right upper lobe nodule. There is no axillary or supraclavicular lymphadenopathy. There is no mediastinal lymphadenopathy. Heart size is normal. There are no coronary artery calcifications. No pericardial effusion. Aorta is normal in caliber. Limited views of the upper abdomen are unremarkable. There are no suspicious osseus lesions. IMPRESSION: No suspicious pulmonary nodules. LUNG-RADS CATEGORY: 2 MODIFIER: None. Dictated by: Dictated on workstation # [id number]
== END ==
LOC: RAD 07:45
PROVIDERS: ATTEND Family Medicine
DX: Z12.2 Encounter for screening for malignant neoplasm of respiratory organs (principal); Z87.891 Personal history of nicotine dependence
CPT/HCPCS: 71271

== ENCOUNTER 2023-07-09 05:36 | Outpatient (CLI) | payer MEDICARE ==
[~2023-07-09] VITALS: Ht 172.7 cm; Wt 98.0 kg
[2023-07-10] MEDS ORDERED: SEMA7TAB2 PO (10:49)
[2023-07-10] MEDS ORDERED: LISI1TAB48 PO (10:49)
[2023-07-10] MEDS ORDERED: SERT-412 PO (10:49)
== END 2023-07-10 10:53 | disposition home or self-care (01) ==
LOC: PREOP 05:36
PROVIDERS: ATTEND Surgery
DX: Z01.818 Encounter for other preprocedural examination (principal)

== ENCOUNTER 2023-07-22 10:27 | Day surgery (SDC) | payer MEDICARE ==
[~2023-07-22] VITALS: Ht 173 cm; Wt 98.0 kg
[~2023-07-22 10:27] MED LIST changes: +LISI1TAB48 PO; +SEMA7TAB2 PO; +SERT-412 PO
[2023-07-22] MEDS ORDERED: LACTATED RINGERS 1,000 ML 1,000 ML IV STA (10:46)
[2023-07-22] MEDS ORDERED: HURRICAINE EXT TUBE (BENZOCAINE) XX PRN (11:00)
[2023-07-22 11:05] VITALS: BP 119/74
--- NOTE | 2023-07-22 13:04 | Progress Note-Pre Operative ---
Pre-Operative Progress Note Date H&P Reviewed: Jul 22, 2023 Time H&P Reviewed: 13:03 History & Physical: H&P Reviewed, Patient Examed, No changes noted Pre-Operative Diagnosis: GERD, screening colonoscopy MARCY OVIEDO DO Jul 22, 2023 13:04
[2023-07-22 13:45] VITALS: BP 122/61
--- NOTE | 2023-07-22 13:48 | Progress Note-Post Operative ---
Post-Operative Progess Note Surgeon (s)/Precision Lens Grinder Apprentice (s) Surgeon MARCY OVIEDO DO Precision Lens Grinder Apprentice: none Pre-Operative Diagnosis GERD, screening colonoscopy Post-Operative Diagnosis hiatial hernia, colon polyps Procedure & Operative Findings Date of Procedure 07/22/23 Procedure Performed/Findings Egd with biopsies, Colonoscopy with hot bx polypectomy x5 Anesthesia Type per COIL TESTER Estimated Blood Loss Estimated blood loss (mL): none Specimens/Packing Specimens Removed antrum, ge ascending, transverse, descending, rectal polyps MARCY OVIEDO DO Jul 22, 2023 13:48
[2023-07-22 13:50] VITALS: BP 96/51
[2023-07-22] MEDS ORDERED: PANT40TA2 PO (13:51)
--- NOTE | 2023-07-22 13:53 | Discharge Inst-Simple/Standard ---
Discharge Inst-Standard Discharge Medications New, Converted or Re-Newed RX: Transmitted to Pharmacy Patient Instructions/Follow Up Plan of Care/Instructions/FU: marii 2 weeks Activity as Tolerated: Yes Discharge Diet: Regular Diet MARCY OVIEDO DO Jul 22, 2023 13:53
[2023-07-22 14:25] VITALS: BP 96/51
--- NOTE | 2023-07-22 14:33 | Anesthesia-General Post-Op ---
MAC Patient Condition Mental Status/LOC: Same as Preop Cardiovascular: Satisfactory Nausea/Vomiting: Absent Respiratory: Satisfactory Pain: Controlled Complications: Absent Post Op Complications Complications None Follow Up Care/Instructions Patient Instructions None needed. Anesthesiology Discharge Order Discharge Order Patient is doing well, no complaints, stable vital signs, no apparent adverse anesthesia problems. No complications reported per nursing. BRIANA OSORIO DO Jul 22, 2023 14:32
--- NOTE | 2023-07-22 19:27 | OPERATIVE REPORT ---
DATE OF SERVICE: 07/22/2023 PREOPERATIVE DIAGNOSIS: Screening colonoscopy. POSTOPERATIVE DIAGNOSES: Hiatal hernia, colon polyps. PROCEDURES: EGD with biopsies, colonoscopy with hot biopsy polypectomy x5. SURGEON: Marcy Thomson DO ANESTHESIA: Per DATER ASSEMBLER. ESTIMATED BLOOD LOSS: None. COMPLICATIONS: None. INDICATIONS: The patient is a 63-year-old male with GERD symptoms and also needing screening colonoscopy. He understands risks and benefits of procedure and wished to proceed. Consent was signed in chart. DESCRIPTION OF PROCEDURE: The patient was taken to endoscopy suite, placed in left lateral recumbent position. Timeout was performed. Scope was inserted in the mouth, down the esophagus, stomach, into the duodenum without difficulty. No polyps, masses or ulcerations in the duodenum. Scope was slowly retracted back into stomach where it was further insufflated. No polyps, masses or ulcerations. Biopsy of the antrum was obtained. Scope was retroflexed noting a small hiatal hernia, no other pathology. Scope was returned to its normal position, slowly withdrawn into the distal esophagus. Biopsy of GE junction was obtained. Scope was then slowly retracted back until completely removed. Digital rectal exam was performed. No palpable polyps, masses or ulcerations. Scope was inserted in the rectum and advanced all the way to the cecum with minimal difficulty. Prep was adequate. Scope was slowly retracted back. No polyps, masses or ulcerations within the cecum. In the ascending colon, polyp was present, which hot polypectomy was performed. Scope was then continuously retracted back to the transverse colon. Another polyp was present, which hot biopsy polypectomy was performed. Scope was then continuously retracted back in descending colon where 2 polyps were present, which hot biopsy polypectomy was performed. No polyps, masses or ulcerations in the sigmoid and the rectum. Another polyp present, which hot biopsy polypectomy was performed. Scope was retroflexed noting no other pathology. Scope was returned to its normal position, slowly withdrawn until completely removed. The patient tolerated the procedure well, no complications, taken to recovery room in stable condition. RECOMMENDATIONS: The patient will have repeat colonoscopy in 3 years. Any issues before that, he will be seen at that time him. We will start him on Protonix 40 mg daily. We will see how his symptoms are doing at that time. He will follow up on pathology. Job ID: [id number] DocumentID: [id number] Dictated Date: 07/22/2023 14:36:33 Director Medicare Sales Date: 07/22/2023 19:25:00 Dictated By: MARCY THOMSON DO
== END 2023-07-22 14:25 | disposition home or self-care (01) ==
LOC: ENDO 10:27
PROVIDERS: ATTEND Surgery
DX: Z12.11 Encounter for screening for malignant neoplasm of colon (principal); K21.00 Gastro-esophageal reflux disease with esophagitis, without bleeding; D12.2 Benign neoplasm of ascending colon; D12.3 Benign neoplasm of transverse colon; D12.4 Benign neoplasm of descending colon; D12.5 Benign neoplasm of sigmoid colon; K62.1 Rectal polyp; K44.9 Diaphragmatic hernia without obstruction or gangrene; J44.9 Chronic obstructive pulmonary disease, unspecified; E66.9 Obesity, unspecified; Z99.81 Dependence on supplemental oxygen; Z87.891 Personal history of nicotine dependence; Z68.33 Body mass index [BMI] 33.0-33.9, adult; Z79.84 Long term (current) use of oral hypoglycemic drugs; Z79.899 Other long term (current) drug therapy
CPT/HCPCS: 82947